=== PATIENT | female | born 1955 | race Caucasian/White ===

== ENCOUNTER 2021-11-22 10:55 | Inpatient (IN) | payer MEDICARE ==
[~2021-11-22] VITALS: Ht 162.6 cm; Wt 95.8 kg
[2021-11-22] MEDS ORDERED: diphenhydrAMINE 25 MG TAB (BENADRYL) PO PRN (13:15)
[2021-11-22] MEDS ORDERED: DOCUSATE SODIUM 100 MG (COLACE) CAP PO PRN (13:15)
[2021-11-22] MEDS ORDERED: ONDANSETRON 4 MG (ZOFRAN) ORAL DISSOLVE TAB PO PRN (13:15)
[2021-11-22] MEDS ORDERED: MELATONIN 3 MG TABLET PO PRN (13:15)
[2021-11-22] MEDS ORDERED: BISACODYL 10 MG SUPP (DULCOLAX) PR PRN (13:15)
[2021-11-22] MEDS ORDERED: CALCIUM CARBONATE 500 MG (TUMS) TAB.CHEW PO PRN (13:15)
[2021-11-22] MEDS ORDERED: FLEET ENEMA ADULT 1 EA BTL PR PRN (13:15)
[2021-11-22] MEDS ORDERED: LOPERAMIDE 2 MG (IMODIUM) TABLET PO PRN (13:15)
[2021-11-22] MEDS ORDERED: guaiFENesin/CODEINE (ROBITUSSIN AC) 10ML UDC PO PRN (13:15)
[2021-11-22] MEDS ORDERED: ACETAMINOPHEN 325 MG TABLET PO PRN (13:15)
[2021-11-22] MEDS ORDERED: ALPRAZolam 0.25 MG (XANAX) TAB PO PRN (13:15)
[2021-11-23] MEDS ORDERED: LEVO100T7 PO (16:02)
[2021-11-23] MEDS ORDERED: GABA300C PO (16:02)
[2021-11-23] MEDS ORDERED: GLIM2TAB4 PO (16:02)
[2021-11-23] MEDS ORDERED: NALO4SPR3 NS (16:02)
[2021-11-23] MEDS ORDERED: CARV12.53 PO (16:02)
[2021-11-23] MEDS ORDERED: BUPR150T9 PO (16:02)
[2021-11-23] MEDS ORDERED: DICY10CA12 PO (16:02)
[2021-11-23] MEDS ORDERED: MICO45CR50 VG (16:02)
[2021-11-23] MEDS ORDERED: ONDA4TAB11 PO (16:02)
[2021-11-23] MEDS ORDERED: METO5TAB2 PO (16:02)
[2021-11-23] MEDS ORDERED: FLUO40CA PO (16:02)
[2021-11-23] MEDS ORDERED: HYDR-3817 PO (16:02)
[2021-11-23] MEDS ORDERED: FLUO20CA48 PO (16:02)
[2021-11-23] MEDS ORDERED: INSN1U SQ (16:02)
[2021-11-23] MEDS ORDERED: ACET-11 PO (16:02)
[2021-11-23 17:52] VITALS: BP 133/79
--- NOTE | 2021-11-23 18:08 | PM&R Post Admission Assessment ---
PM&R Date of Visit: Nov 23, 2021 Time of Visit: 18:15 History of Present Illness Chief complaint: Debility following T12 compression fracture and T12-L4 lumbar spine surgery on 11/17/2021 History of present illness: This is a 66-year-old female who presents from [facility] in need of aggressive rehab due to extensive lumbar spine surgery performed in an uncomplicated fashion by Dr. Ash. The surgery was on 11/17/21. She previously lived independently and her daughter is involved in her care. She had presented to the ER at [facility] with generalized weakness and unable to walk and multiple falls that it occurred recently resulting in a T12 compression fracture that ultimately caused severe compression on the spinal cord requiring the extensive surgery due to high risk for quadriplegia. Patient had a BM 2 day s ago. She is very depressed so will evaluate the need for behavioral health consult. Past Zmyyhli-Yceuyp-Kqamuc Hx Past Med/Social Hx: Reviewed Nursing Past Med/Soc Hx, Reviewed and Corrections made Patient Social History Marrital Status: single Employed/Student: retired Alcohol Use: Denies Use Smoking Status: Never a Smoker Past Medical History Surgeries: Orthopedic Cardiac: High Cholesterol, Hypertension Musculoskeletal: Osteoporosis, Chronic Back Pain Endocrine: Diabetes, Non-Insulin dep Psychosocial: Sleep Difficulties, Anxiety, Depression PM&R Allergy/Meds/Data Review Allergies Coded Allergies: No Known Drug Allergies (Unverified , 11/22/21) Home Medications Scheduled Bupropion HCl (Wellbutrin Sr), 150 MG PO BID, (Reported) Carvedilol (Carvedilol), 12.5 MG PO BID WITH MEALS, (Reported) Fluoxetine HCl (Fluoxetine HCl), 20 MG PO DAILY, (Reported) Fluoxetine HCl (Fluoxetine HCl), 40 MG PO DAILY, (Reported) Gabapentin (Neurontin), 300 MG PO TID, (Reported) Glimepiride (Glimepiride), 2 MG PO DAILY W/BREAKFAST, (Reported) Insulin NPH Human Isophane (Novolin N), 11 UNIT SQ HS, (Reported) Levothyroxine Sodium (Levothyroxine Sodium), 100 MCG PO DAILY, (Reported) Miconazole Nitrate (Miconazole Nitrate), 1 APPLIC VG HS, (Reported) Naloxone HCl (Naloxone HCl), 4 MG NS UD, (Reported) Scheduled PRN Acetaminophen with Codeine (Acetaminophen-Cod #3 Tablet), 1 EACH PO Q6H PRN for PAIN-MODERATE (5-7), (Reported) Dicyclomine HCl (Dicyclomine HCl), 10 MG PO TID PRN for ABDOMINAL PAIN, (Reported) Hydrocodone/Acetaminophen (Hydrocodone-Acetamin 7.5-325), 1 EACH PO Q4H PRN for PAIN-MODERATE (5-7), (Reported) Metoclopramide HCl (Metoclopramide HCl), 5 MG PO BID PRN for NAUSEA/VOMITING-3RD LINE, (Reported) Ondansetron (Ondansetron Odt), 4 MG PO Q6 -8H PRN for NAUSEA/VOMITING-1ST LINE, (Reported) Current Medications Current Medications Reviewed Review of Systems Constitutional: see HPI, malaise, weakness EENTM: no symptoms reported Respiratory: no symptoms reported Cardiovascular: no symptoms reported Gastrointestinal: no symptoms reported Genitourinary: no symptoms reported Musculoskeletal: back pain Skin: no symptoms reported Psychiatric/Neurological: Anxiety, Depressed, Emotional Problems All Other Systems Reviewed Negative Unless Noted: Yes Physical Exam Physical Exam Vital Signs Vital Signs - First Documented 11/23/21 17:52 Temp 36.6 Pulse 80 Resp 18 B/P (MAP) 133/79 (97) Pulse Ox 93 O2 Delivery Room Air Capillary Refill : Height, Weight, BMI Height: '" Weight: lbs. oz. kg; BMI Method: General Appearance: No Apparent Distress, WD/WN, Chronically ill Eyes: Bilateral Eye Normal Inspection, Bilateral Eye PERRL HEENT: PERRL/EOMI, Normal ENT Inspection, Pharynx Normal Neck: Full Range of Motion, Normal Inspection, Non Tender, Supple, Carotid Bruit Respiratory: Chest Non Tender, Lungs Clear, Normal Breath Sounds, No Accessory Muscle Use, No Respiratory Distress Cardiovascular: Regular Rate, Rhythm, No Edema, No Gallop, No JVD, No Murmur, Normal Peripheral Pulses Gastrointestinal: Normal Bowel Sounds, No Organomegaly, No Pulsatile Mass, Non Tender, Soft Back: CVA Tenderness (L), CVA Tenderness (R), Decreased Range of Motion, Muscle Spasm, Vertebral Tenderness Extremity: Normal Capillary Refill, Normal Inspection, Normal Range of Motion (Except lower extremities), Non Tender, No Calf Tenderness, No Pedal Edema Neurologic/Psychiatric: Alert, Oriented x3, sign hanger supervisor II-XII Norm as Tested, Depres sed Affect, Motor Weakness (Lower extremities severe weakness) Skin: Normal Color, Warm/Dry Lymphatic: No Adenopathy PM&R Medical Assessment & Plan REHAB/MEDICAL ASSESSMENT AND PLAN: REHAB IMPAIRMENT GROUP: Lumbar stenosis ETIOLOGIC DIAGNOSIS: Lumbar stenosis The comorbidities that impact the patients function and/or functional outcome by: Severe depression, severe weakness of lower extremities, lives alone REHAB PLAN: The patient is being admitted to our comprehensive inpatient rehabilitation facility and can tolerate the intensity of service consisting of at least: 180 minutes of therapy a day, 5 out of 7 days a week Rehab treatment will consist of: PT and OT will focus on regaining function with use of assistive devices in order to regain ambulatory skills while controlling pain and increasing ADL independence The patient/family has a good understanding of our discharge process and will benefit from an interdisciplinary inpatient rehabilitation program. The patient has potential to make improvement and is in need of at least two of the following multidisciplinary therapies including but not limited to physical, occupational, speech, and prosthetics and orthotics. Additionally the patient will need services from respiratory, nutritional services, wound care, psycholo gy, etc. (Customize this to each patient). Given the patients complex condition and risk of further medical complications, rehabilitation services cannot be safely or effectively provided at a lower level of care such as a residential facility. BARRIERS TO DISCHARGE: Lives alone ESTIMATED LOS: 14 days DISPOSITION: Home RELEVANT CHANGES SINCE PREADMISSION SCREENING: I have compared the patients medical and functional status at the time of the preadmission screening and there are: no changes PROGNOSIS: Good REHABILITATION GOALS: 1. PT and OT will focus on regaining function with use of assistive devices in order to regain ambulatory skills while controlling pain and increasing ADL independence All the above goals were reviewed with the patient and he/she is in agreement. By signing this document, I acknowledge that I have personally performed a full physical examination on this patient within 24 hours of admission to this inpatient rehabilitation facility and have determined the patient to be able to tolerate the above course of treatment at an intensive level for a reasonable period of time. I will be completing a detailed individualized Plan of Care for this patient by day #4 of the patients stay based upon the Preadmission Screen, the Post-Admission Evaluation, and the therapy evaluations. Admission Dx/Comorbidities: (1) S/P spinal fusion ICD Codes: Z98.1 - Arthrodesis status Assessment/Plan Assessment and Plan Assess & Plan/Chief Complaint Assessment: Severe debility following T12 laminectomy with bilateral decompression with T10- T11, T11-T12, T12-L1, L1-L2 posterior lateral fusion requiring [employer] pedicle screws and local bone graft by Dr. Ash on 11/17/2021 at [facility] Severe debility History of depression and 96-hour hold due to suicidal ideation in the past 3 years ago Diabetes Anxiety Depression Hypertension Hypothyroidism MRSA infection Plan: Pain control Supportive [facility] meds Fall risk Bowel regimen ANA GARCIA DO Nov 23, 2021 18:08
[2021-11-23] MEDS ORDERED: NALOXONE HCL 4 MG NS SCH (18:15)
[2021-11-23] MEDS ORDERED: METOCLOPRAMIDE 5 MG (REGLAN) TAB PO PRN (18:15)
[2021-11-23] MEDS ORDERED: DICYCLOMINE 10 MG (BENTYL) CAP PO PRN (18:15)
[2021-11-23 19:27] VITALS: BP 101/66
[2021-11-23] MEDS: buPROPion SR 150 MG (WELLBUTRIN SR) TAB PO SCH (20:15)
[2021-11-23] MEDS: GABAPENTIN 300 MG (NEURONTIN) CAP PO SCH (20:15)
[2021-11-23] MEDS: APAP 300 MG/CODEINE 30 MG (TYLENOL #3) TAB PO PRN (20:16)
[2021-11-23] MEDS: inSUlin NPH (NovoLIN N) 1 UNIT/0.01 ML (CHARGE PER UNIT) SQ SCH (20:17)
[2021-11-23] MEDS: DOCUSATE SODIUM 100 MG (COLACE) CAP PO SCH ×3 (20:28→20:31)
[2021-11-23] MEDS: polyethylene glycoL POWDER 17 GM (MIRALAX) PACK PO SCH ×3 (20:28→20:31)
[2021-11-23] MEDS: SENNA W/DOCUSATE (SENOKOT S) TABLET PO SCH ×3 (20:28→20:32)
[2021-11-23] MEDS: CLOTRIMAZOLE 1% VAG CR (GYNE LOTRIMIN) 45 GM PV SCH (20:29)
[2021-11-23] MEDS ORDERED: MICONAZOLE NITRATE VG SCH (21:00)
[2021-11-23] MEDS: inSUlin ASPART (NovoLOG) 1 UNIT/0.01 ML (CHARGE PER UNIT) SC SCH (21:10)
[2021-11-24 06:00] LABS: BASOPHILS # (AUTO) 0.1 10^3/uL (0.0-0.1); BASOPHILS % (AUTO) 1 % (0-10); EOSINOPHILS # (AUTO) 0.4 10^3/uL (0.0-0.3); EOSINOPHILS % (AUTO) 4 % (0-10); HEMATOCRIT 35 % (35-52); HEMOGLOBIN 11.1 g/dL (11.5-16.0); LYMPHOCYTES # (AUTO) 1.6 10^3/uL (1.0-4.0); LYMPHOCYTES % (AUTO) 15 % (12-44); MEAN CORPUSCULAR HEMOGLOBIN 28 pg (25-34); MEAN CORPUSCULAR HGB CONC 31 g/dL (32-36); MEAN CORPUSCULAR VOLUME 90 fL (80-99); MONOCYTES # (AUTO) 1.5 10^3/uL (0.0-1.0); MONOCYTES % (AUTO) 13 % (0-12); NEUTROPHILS # (AUTO) 7.3 10^3/uL (1.8-7.8); NEUTROPHILS % (AUTO) 67 % (42-75); PLATELET COUNT 181 10^3/uL (130-400); WHITE BLOOD COUNT 10.8 10^3/uL (4.3-11.0)
[2021-11-24 06:08] LABS: ALBUMIN 2.8 GM/DL (3.2-4.5); CHLORIDE 105 MMOL/L (98-107); SODIUM 140 MMOL/L (135-145)
[2021-11-24 06:10] LABS: CALCIUM 8.7 MG/DL (8.5-10.1)
[2021-11-24 06:11] LABS: GLUCOSE 158 MG/DL (70-105); TOTAL PROTEIN 5.6 GM/DL (6.4-8.2)
[2021-11-24 06:12] LABS: CARBON DIOXIDE 25 MMOL/L (21-32)
[2021-11-24 06:13] LABS: BILIRUBIN,TOTAL 0.5 MG/DL (0.1-1.0)
[2021-11-24 06:14] LABS: ALKALINE PHOSPHATASE 108 U/L (40-136); CREATININE SERUM 0.93 MG/DL (0.60-1.30); GFR ESTIMATED 68
[2021-11-24 06:16] LABS: BUN/CREATININE RATIO 22
[2021-11-24 06:17] LABS: ALANINE AMINOTRANSFERASE < 6 U/L (0-55)
[2021-11-24] MEDS: inSUlin ASPART (NovoLOG) 1 UNIT/0.01 ML (CHARGE PER UNIT) SC SCH ×4 (06:39→21:22)
[2021-11-24] MEDS: LEVOTHYROXINE 100 MCG (LEVOTHROID) TAB PO SCH (06:39)
[2021-11-24] MEDS: APAP 300 MG/CODEINE 30 MG (TYLENOL #3) TAB PO PRN ×3 (06:40→18:34)
[2021-11-24 07:30] VITALS: BP 124/60
[2021-11-24] MEDS: GABAPENTIN 300 MG (NEURONTIN) CAP PO SCH ×3 (08:03→21:22)
[2021-11-24] MEDS: SENNA W/DOCUSATE (SENOKOT S) TABLET PO SCH ×2 (08:03→21:27)
[2021-11-24] MEDS: buPROPion SR 150 MG (WELLBUTRIN SR) TAB PO SCH ×2 (08:03→21:23)
[2021-11-24] MEDS: FLUoxetine HCL 20 MG (PROzac) CAP PO SCH (08:04)
[2021-11-24] MEDS: DOCUSATE SODIUM 100 MG (COLACE) CAP PO SCH ×2 (08:04→21:22)
[2021-11-24] MEDS: GLIMEPIRIDE 2 MG (AMARYL) TAB PO SCH (08:09)
[2021-11-24] MEDS: polyethylene glycoL POWDER 17 GM (MIRALAX) PACK PO SCH ×2 (08:42→19:58)
--- NOTE | 2021-11-24 08:57 | Physical Therapy Evaluation ---
PT Evaluation-General Medical Diagnosis Admission Date Nov 23, 2021 at 17:40 Medical Diagnosis: T12 compression fracture and T12-L4 lumbar spine surgery Onset Date: Nov 17, 2021 Therapy Diagnosis Therapy Diagnosis: impaired mobility, strength, endurance Precautions Precautions/Isolations: Fall Prevention, Standard Precautions Referral Physician: Beba Santacruz DO Reason for Referral: Evaluation/Treatment Medical History Additional Medical History Past Medical History Surgeries: Orthopedic Cardiac: High Cholesterol, Hypertension Musculoskeletal: Osteoporosis, Chronic Back Pain Endocrine: Diabetes, Non-Insulin dep Psychosocial: Sleep Difficulties, Anxiety, Depression Reviewed History: Yes Social History Home: Single Level Current Living Status: Alone Entry Into Home: Stairs Without Railing PT Steps Into Home: 1 (two single steps) Prior Prior Level of Function SCALE: Activities may be completed with or without assistive devices. 9-Wgctykbrim-equmqxt completes the activity by him/herself with no assistance from a helper. 5-Set-up or Clean-up Assistance-helper sets up or cleans up; patient completes activity. [place] assists only prior to or following the activity. 4-Supervision or Touching Assistance-helper provides verbal cues and/or touching/steadying and/or contact guard assistance as patient completes activity. Assistance may be provided throughout the activity or intermittently. 3-Partial/Moderate Assistance-helper does LESS THAN HALF the effort. [place] lifts, holds or supports trunk or limbs, but provides less than half the effort. 2-Substantial/Maximal Assistance-helper does MORE THAN HALF the effort. [place] lifts or holds trunk or limbs and provides more than half the effort. 0-Rqsoxkjtp-uccnlm does ALL the effort. Patient does none of the effort to complete the activity. Or, the assistance of 2 or more helpers is required for the patient to complete the activity. If activity was not attempted, code reason: 7-Patient Refused. 9-Not Applicable-not attempted and the patient did not perform the activity before the current illness, exacerbation or injury. 10-Not Attempted due to Environmental Limitations-(lack of equipment, weather restraints, etc.). 88-Not Attempted due to Medical Conditions or Safety Concerns. Bed Mobility: 6 Transfers (B,C,W/C): 6 Gait: 6 Indoor Mobility (Ambulation): Independent quad cane PT Evaluation-Current Subjective Patient in bed pre tx, agrees to PT, has 5/10 pain in back and abdomen. Will be co-treating with OT for part of tx due to poor patient mobility, strength, endurance, severe debility, coordinate UE and LE during activity, safety and reduce risk of falls. Pt/Family Goals to be independent at home Objective Patient Orientation: Person, Place, Situation TLSO, to be put on while laying in bed ROM/Strength ROM Lower Extremities WNL Strength Lower Extremities grossly 3+/5 BLE Sensory Vision: Wears Glasses Hearing: Functional Sensation Right Lower Extremit: Impaired Sensation Left Lower Extremity: Impaired Sensation Lower Extremities Patient seems to have intact light touch sensation but states she has some numbness in both legs from neuropathy Transfers Roll Left & Right (QC): 3 Sit to Lying (QC): 3 Lying to Sitting/Side of Bed(Q: 3 Sit to Stand (QC): 2 Chair/Kar-ru-Iyfuz Xfer(QC): 3 Toilet Transfer (QC): 3 Car Transfer (QC): 2 Patient performs rolling with min assist, supine <-> sit mod assist, sit <-> stand max assist, transfers min assist, car transfer max assist. Patient needs cues for hand placement and positioning during transfers, feet tend to slide forward with sit to stand. Gait Does the Patient Walk?: Yes Mode of Locomotion: Walk Anticipated Mode of Locomotion: Walk Walk 10 feet (QC): 88 Walk 50 ft with 2 Turns(QC): 88 Walk 150 ft (QC): 88 Walking 10ft/uneven surface-QC: 88 Distance: 5' Gait Assistive Device: FWW Comments/Gait Description Patient can ambulate 5' with a rolling walker with min assist, WC follow, patient has to bear a lot of weight through her arms Wheelchair Training Does the Pt Use a Wheelchair?: Yes Distance: 100'x2 Wheel 50 ft with 2 turns (QC): 3 Wheel 150 ft (QC): 88 Type of Wheelchair: Manual Stairs 1 Step (curb) (QC): 88 4 Steps (QC): 88 12 Steps (QC): 88 Balance Sitting Static: Normal Sitting Dynamic: Normal Standing Static: Poor Standing Dynamic: Poor Picking up an Object (QC): 88 Treatment Patient was also toileted on commode (max assist to stand and min assist for the transfer), PT performed bed mobility and transfers, rolling and positioning during bed bathing and dressing, ambulation, WC mobility, OT performed dressing, bathing, UE positioning and safety during activity. Assessment/Needs Patient in recliner post tx with nurse call, to continue with OT for a bit. Patient has impaired mobility, strength, endurance. Her legs are very weak and needs a lot of assist to stand. Rehab Potential: Fair PT Short Term Goals Short Term Goals Time Frame: Dec 01, 2021 Roll Left & Right: 4 Sit to lyin (Nell) Lying to sitting on side of be: 3 (Nell) Sit to stand: 3 (modA) Chair/uht-jp-wkuhq transfer: 4 (CGA) Walk 10 feet: 4 (CGA) PT Custodial Goals Employment Programs Analyst Goals PT Employment Programs Analyst Goals Time Frame: Dec 15, 2021 Roll Left & Right (QC): 6 Sit to Lying (QC): 4 (SBA) Lying-Sitting on Side/Bed(QC): 4 (SBA) Sit to Stand (QC): 3 (Nell) Chair/Umz-mb-Vcazz Xfer(QC): 4 (SBA) Toilet Transfer (QC): 4 (SBA) Car Transfer (QC): 3 (Nell) Does the Patient Walk: Yes Walk 10 feet (QC): 4 (SBA) Walk 50ft with 2 Turns (QC): 4 (SBA) Walk 150 ft (QC): 88 Walking 10ft on Uneven Surface: 4 (CGA) 1 Step (curb) (QC): 88 4 Steps (QC): 88 12 Steps (QC): 88 Picking up an Object (QC): 4 Wheel 50 feet with 2 turns (QC: 6 Wheel 150 feet: 6 PT Plan Problem List Problem List: Activity Tolerance, Functional Strength, Safety, Balance, Gait, Transfer, Bed Mobility, ROM Treatment/Plan Treatment Plan: Continue Plan of Care Treatment Plan: Bed Mobility, Education, Functional Activity Yennifer, Functional Strength, Group Therapy, Gait, Safety, Therapeutic Exercise, Transfers Treatment Duration: Dec 15, 2021 Frequency: At least 5 of 7 days/Wk (IRF) Estimated Hrs Per Day: 1.5 hours per day Patient and/or Family Agrees t: Yes Safety Risks/Education Patient Education: Gait Training, Transfer Techniques, Reviewed Precautions, Correct Positioning, Reviewed Don/Doff Brace, Safety Issues Teaching Recipient: Patient Teaching Methods: Demonstration, Discussion Response to Teaching: Reinforcement Needed Discharge Recommendations Plan Patient will perform bed mobility and transfer training, balance and endurance training, functional strengthening, stair training, gait training, and education, to improve functional mobility and independence at home. Therapy Discharge Recommendati: Scheduled Assistance, Home & Family, Post Acute PT Time/GCodes Time In: 799 Time Out: 899 Total Billed Treatment Time: 60 Total Billed Treatment 1 visit EVM 10' FA 50' PT eval from [id number], co-treat with OT from [id number] NERISSA BENITEZ PT Nov 24, 2021 08:57
[2021-11-24] MEDS ORDERED: FLUoxetine HCL 20 MG (PROzac) CAP PO SCH (09:00)
[2021-11-24] MEDS ORDERED: NON-FORMULARY MEDICATION 1 EA EA (Fluoxetine HCl 40 MG) PO SCH (09:00)
--- NOTE | 2021-11-24 09:15 | Occupational Therapy Eval ---
OT Evaluation-General/PLF Medical Diagnosis Admission Date Nov 23, 2021 at 17:40 Medical Diagnosis: T12 compression fracture and T12-L4 lumbar spine surgery Onset Date: Nov 17, 2021 Therapy Diagnosis Therapy Diagnosis: decreased ADL status and weakness Precautions Precautions/Isolations: Fall Prevention, Standard Precautions Comments wear TLSO brace in sitting and standing, don/doff TLSO brace in supine, back precautions (no BLT), no lifting more than 2-3lb per doctor's orders Weight Bear Status Weight Bearing Restriction: Weight Bearing/Tolerated Referral Physician: Beba Santacruz DO Referral Reason: Evaluation/Treatment Medical History Additional Medical History anxiety, depression, DM, HTN, hypothermia, MRSA Current History Fall in September 2021 causing T12 compression fx. ED c/o weakness in legs and n/v on 11/17/2021. S/p thoracic lumbar fusion, posterior T10-12. Social History Home: Apartment (Lives on first floor) Current Living Status: Alone Entry Into Home: Stairs Without Railing Steps Into Home: 1 (two single steps) ADL-Prior Level of Function SCALE: Activities may be completed with or without assistive devices. 6-Qbojktljea-sfehnlg completes the activity by him/herself with no assistance from a helper. 5-Set-up or Clean-up Assistance-helper sets up or cleans up; patient completes activity. [place] assists only prior to or following the activity. 4-Supervision or Touching Assistance-helper provides verbal cues and/or touching/steadying and/or contact guard assistance as patient completes activity. Assistance may be provided throughout the activity or intermittently. 3-Partial/Moderate Assistance-helper does LESS THAN HALF the effort. [place] lifts, holds or supports trunk or limbs, but provides less than half the effort. 2-Substantial/Maximal Assistance-helper does MORE THAN HALF the effort. [place] lifts or holds trunk or limbs and provides more than half the effort. 8-Jsedrpwfm-yangnm does ALL the effort. Patient does none of the effort to complete the activity. Or, the assistance of 2 or more helpers is required for the patient to complete the activity. If activity was not attempted, code reason: 7-Patient Refused. 9-Not Applicable-not attempted and the patient did not perform the activity before the current illness, exacerbation or injury. 10-Not Attempted due to Environmental Limitations-(lack of equipment, weather restraints, etc.). 88-Not Attempted due to Medical Conditions or Safety Concerns. ADL PLOF Comments Pt states PLOF as IND with ADLs and IADLs. She has a tub/shower and raised handles bars for her normal-height toilet. She does not use an AD within her home but uses a SPC when outside the home. Pt has a daughter who lives nearby (she is currently and unsure how much physical assistance daughter would be able to provide). She has 7 grandchildren, ranging 2-19 y.o, pt indicates the oldest 2 may be able to provide some assistance. Her daughter and grandchildren do not work. Self Care: Independent Functional Cognition: Independent DME/Equipment: Tub/Shower DME/Equipment Comments Pt has raised handles for normal-height toilet seat. OT Current Status Subjective Pt supine in bed prior to OT eval/tx. Pt agreeable to OT eval/tx. Mental Status/Objective Patient Orientation: Person, Place, Situation, Normal For Age Current Glasses/Contacts: Yes Hand Dominance: Right Upper Extremity ROM R UE is WFL, approximately 130 degrees AROM laying down and 120 in seated position. L UE decreased ROM d/t injury 3yrs ago. Approximately 50 degrees AROM laying down and 20 degrees in seated position. Upper Extremity Coordination WFL Upper Extremity Sensation Pt denies any UE numbness or tingling. Upper Extremity Strength Grossly 3/5 RUE Grossly 2/5 LUE ADL-Treatment Eating (QC): 6 Oral Hygiene (QC): 5 (bedside setup) Shower/Bathe Self (QC): 2 (Pt able to wash UE and geraldine area supine in bed, but required assistance to wash buttocks and LE at bed level) Upper Body Dressing (QC): 2 (Max A required to log roll and don shirt and brace in supine) Lower Body Dressing (QC): 2 (Max a required to thread legs through pants and log roll to hike pants over hips in supine. Pt able to hike pants from knee to upper thigh.) On/Off Footwear (QC): 1 Toileting Hygiene (QC): 1 (Total A. 2 person required to don/doff clothes and maintain balance. Pt able to clean geraldine area.) Other Treatments Pt supine in bed prior to eval/tx. Pt answered questions about PLOF and participated in an UE screen. PT/OT cotreat due to skill of 2 clinicians required which a workplace rehabilitation officer could not perform d/t complex medical needs of pt, decreased strength, activity tolerance, mobility/transfers. OT focused on ADLs, UE placement, cues for safety and sequencing, and PT focused on LE placement, gross overall movement, transfers, and mobility. Pt performed bathing and dressing supine in bed d/t doctor's orders that pt must wear TLSO brace when sitting or standing. Education attempted on figure 4 method of crossing ankle over opposite knee, pt attempted but unable to perform movement, increased pain. Pt transferred supine to EOB, assist with trunk. SPT from EOB to w/c. Pt required Min A for w/c mobility to the therapy gym. Pt performed mobility in gym with FWW, assist x2 for sit to stand, then 1 person assist once up with w/c follow (5' min A). Pt required min v/c's for w/c mobility returning to room. Pt required two person A to [place] [facility] she completed toileting. Pt used SPT to return to recliner and participate in oral hygiene and grooming tasks, bedside setup. Post tx, pt left in recliner with TLSO brace on, call light in reach, and all needs met. Min A rolling, mod A supine to/from sit, max A sit to/stand (assist x2 at times), min A transfers. Cues required for UE placement and positioning with transfers. Education OT Patient Education: Correct positioning, Energy conservation, Exercise program, Instructions don/doff splint/brace, Progress toward Goal/Update tx plan, Purpose of tx/functional activities, Reviewed precautions, Rehab process, Safety issues, Transfer techniques, W/C management Teaching Recipient: Patient Teaching Methods: Discussion Response to Teaching: Verbalize Understanding OT Short Term Goals Short Term Goals Time Frame: Dec 08, 2021 Toileting hygiene: 3 Shower/bathe self: 3 Upper body dressin Lower body dressin Putting on/taking off footwear: 3 OT Technicians [employer] Trades Workers Goals [employer]icians [employer] Trades Workers Goals Time Frame: Dec 22, 2021 Eating (QC): 6 Oral Hygiene (QC): 6 Toileting Hygiene (QC): 4 Shower/Bathe Self (QC): 5 (bed level sponge bath) Upper Body Dressing (QC): 5 (bed level) Lower Body Dressing (QC): 4 On/Off Footwear (QC): 4 Additional Goals: 1-Demonstrate ADL Tasks, 2-Verbalize Understanding, 3- ImproveStrength/Yennifer 1=Demonstrate adherence to instructed precautions during ADL tasks. 2=Patient will verbalize/demonstrate understanding of assistive devices/modifications for ADL. 3=Patient will improve strength/tolerance for activity to enable patient to perform ADL's. OT Education/Plan Problem List/Assessment Assessment: Decreased Activ Tolerance, Decreased UE Strength, Dependent Transfers, Impaired Bed Mobility, Impaired Funct Balance, Impaired I ADL's, Impaired Self-Care Skills, Restricted Funct UE ROM Discharge Recommendations Plan/Recommendations: Continue POC Equpiment Recommendations-D/C: Extended Bath Bench, Hip Kit Comment D/c recommendations dependent on pt progress. Treatment Plan/Plan of Care Treatment,Training & Education: Yes Patient would benefit from OT for education, treatment and training to promote independence in ADL's, mobility, safety and/or upper extremity function for ADL's. Plan of Care: ADL Retraining, Functional Mobility, Group Exercise/Act as Ind, UE Funct Exercise/Act Treatment Duration: Dec 22, 2021 Frequency: At least 5 of 7 days/Wk (IRF) Estimated Hrs Per Day: 1.5 hours per day Rehab Potential: Fair Time/GCodes Start Time: 07:50 Stop Time: 09:15 Total Time Billed (hr/min): 75 Billed Treatment Time OT evaluation [id number], PT eval [id number] (not billed), cotreat [id number], OT tx [id number] 1, EVM (10'), ADL 2 (40'), FA 2 (25') RHYS MENEZES OT Nov 24, 2021 09:15
--- NOTE | 2021-11-24 10:41 | Individualized Plan of Care ---
Individualized Plan of Care Rehab Nursing IPOC Order Admission Date Nov 23, 2021 at 17:40 Current Orders Orders Admission Order(Inpt,Obs,Sdc) (11/22/21 13:09) Vital Signs: Per Unit Policy ( ,16,00 (11/22/21 13:09) Davonte Skelton (11/22/21 13:09) Sequential Compression Device (11/22/21 13:09) Pit Steward-Inpt Rehab Con (11/22/21 13:09) Rehab Nursing Orders-Ipoc (11/22/21 13:09) Physical Therapy Rehab Orders (11/22/21 13:09) Occupational Therapy Rehab Ord (11/22/21 13:09) Speech Therapy Rehab Orders (11/22/21 13:09) Precautions (Aru) (11/22/21 13:09) Weekly Weight WEEK (11/22/21 13:09) Rehab-Intensity Of Therapy (11/22/21 13:09) Initiate Admission Nursing Pro .admission (11/22/21 13:09) Alprazolam Tablet (Xanax Tablet) (11/22/21 13:15) Calcium Carbonate Chew Tablet (Antacid C (11/22/21 13:15) Diphenhydramine Tablet (Benadryl Tablet) (11/22/21 13:15) Docusate Sodium Capsule (Colace Capsule) (11/22/21 21:00) Docusate Sodium Capsule (Colace Capsule) (11/22/21 13:15) Bisacodyl Suppository (Dulcolax Supposit (11/22/21 13:15) Lactulose Oral Solution (Enulose Oral So (11/22/21 13:15) Na Phos/Na Biphos Enema (Fleet Enema Dominik (11/22/21 13:15) Guaifenesin/Codeine Syrup (Robitussin Ac (11/22/21 13:15) Loperamide Tablet (Imodium Tablet) (11/22/21 13:15) Melatonin Tablet (Melatonin Tablet) (11/22/21 13:15) Polyethylene Glycol Powder Pkt (Miralax (11/22/21 21:00) Ondansetron Oral Dissolve Tab (Zofran (11/22/21 13:15) Senna S Tablet (Senokot S Tablet) (11/22/21 21:00) Acetaminophen Tablet/Caplet (Tylenol T (11/22/21 13:15) Code/Resuscitation (11/22/21 13:09) Initiate Admission Nursing Pro .admission (11/22/21 13:09) Vte Contraindication (11/22/21 13:09) Cbc With Automated Diff (11/24/21 06:00) Comprehensive Metabolic Panel (11/24/21 06:00) Admission Arrival Bed Request (11/23/21 17:40) Acetaminophen/Codeine Tablet (Tylenol W/ (11/23/21 18:15) Bupropion Sr 12 Hr Tablet (Wellbutrin Sr (11/23/21 21:00) Carvedilol Tablet (Coreg Tablet) (11/24/21 08:00) Dicyclomine Capsule (Bentyl Capsule) (11/23/21 18:15) Fluoxetine Capsule (Prozac Capsule) (11/24/21 09:00) Gabapentin Capsule/Tablet (Neurontin Cap (11/23/21 21:00) Glimepiride Tablet (Amaryl Tablet) (11/24/21 08:00) Hydrocodone/Apap 7.5/325 Tab (Lortab 7. (11/23/21 18:15) Insulin Nph Human (Per Unit) (Novolin N (11/23/21 21:00) Levothyroxine Tablet (Synthroid Tablet) (11/24/21 06:30) Metoclopramide Tablet (Reglan Tablet) (11/23/21 18:15) Ondansetron Oral Dissolve Tab (Zofran (11/23/21 18:15) (Nf) Fluoxetine Hcl (11/24/21 09:00) (Nf) Miconazole Nitrate (11/23/21 21:00) (Nf) Naloxone Hcl (11/23/21 18:15) Cho 75g/M 1snack (21-2400 Mike) (11/23/21 Dinner) Accucheck Achs ACHS (11/23/21 18:06) Insulin Aspart (Novolog) (Novolog (Charg (11/23/21 21:00) Fluoxetine Capsule (Prozac Capsule) (11/24/21 09:00) Carvedilol Tablet (Coreg Tablet) (11/23/21 18:30) Clotrimazole 1% Vaginal Cream (Gyne-Lotr (11/23/21 21:00) Patient Visit (11/24/21 ) Speech Sound Lang Comp (11/24/21 ) Treat. Speech/Lang/Voice (11/24/21 ) Patient Visit (11/24/21 ) Pt Eval Moderate Complexity (11/24/21 ) Functional Activities, Ea 15 (11/24/21 ) Patient Visit (11/24/21 ) Exercise Therap, Ea 15 Min (11/24/21 ) Baclofen Tablet (Lioresal Tablet) (11/24/21 21:00) Rehab Nursing Orders: Ongoing Assess. of Cognitive Status, Ongoing Assess. of Function Status, Bladder Management, Bladder Scan, Bladder Training, Bowel Management, Bowel Training, Disease Management & Educaiton, DVT Prophylaxis, Fall Prevention, Fluid/Electrolyte/Nutrition Mgmt, Infection Prevention, Medication Management & Education, Management of Risks & Complications, Management of Skin Intergrity, Nutrition Management, Pain Management, Patient/Family Support, Safety Management, Wound Management Intensity of Therapy to be met Patient to be seen: Min.3h per day/5 of 7d PT IPOC Problem List: Activity Tolerance, Functional Strength, Safety, Balance, Gait, Transfer, Bed Mobility, ROM Treatment Plan: Continue Plan of Care Bed Mobility, Education, Functional Activity Yennifer, Functional Strength, Group Therapy, Gait, Safety, Therapeutic Exercise, Transfers Treatment Duration: Dec 15, 2021 Frequency: At least 5 of 7 days/Wk (IRF) Estimated Hrs Per Day: 1.5 hours per day OT IPOC Problems: Decreased Activ Tolerance, Decreased Safety Aware, Decreased UE Strength, Dependent Transfers, Impaired Bed Mobility, Impaired Cognition, Impaired Coordination, Impaired Funct Balance, Impaired Self-Care Skills, Restricted Funct UE ROM OT Treatment, Training and Edu: Yes Plan of Care: ADL Retraining, Cognitive Retraining, Concurrent Therapy, Functional Mobility, Group Exercise/Act as Ind Treatment Duration: Nov 24, 2021 Frequency: 5 times per week Estimated Hrs Per Day: [address] IPOC Speech Therapy Treatment Plan: Continue Plan of Care Treatment Duration: Nov 24, 2021 Frequency: Modified Program (IRF) Estimated Hrs Per Day: Other Pit Steward/Case Mgmt Pit Steward/Case Managemen: Discharge Planning Dietitian/Transport Assistant Dietitian/Transport Assistant to monitor nutritional status and make changes and/or recommendations as needed and work with speech pathology on dietary upgrades as the occur. Physician IPOC Medical Issues being managed closely and that require the 24 hour availability of a physician: Recent complex lumbar spine surgery will require close monitoring of the wound and monitoring the emotional status and BP of labile patient Medical Issues: Bowel/Bladder Function, DVT Prophylaxis, Falls Precautions, Fluid/Electrolyte/Nutrition Balance, Infection Protection, Pain Management, Wound Care Brief Synthesis of Preadmission Screen, Post-Admission Evaluation, and Therapy Evaluations: PT OT will focus on regaining ADL function and ambulation on order to regain enough skills to return home alone Medical Prognosis: Fair Anticipated Length of Stay: 7 days ANA GARCIA DO Nov 24, 2021 10:41
--- NOTE | 2021-11-24 10:41 | PM&R Progress Note ---
Subjective HPI/CC On Admission Date Seen by Provider: Nov 24, 2021 Time Seen by Provider: 12:00 Subjective/Events-last exam 11/24/2021: Pt is doing pretty well Has chronic nausea Dressing over the incision will be changed per Dr. Ash's orders Pain is 4-5 Appears to be very depressed so will monitor that closely Review of Systems Musculoskeletal: back pain Objective Exam Vital Signs Vital Signs Date Time Temp Pulse Resp B/P (MAP) Pulse Ox O2 Delivery O2 Flow Rate FiO2 11/24/21 09:15 93 Room Air 11/24/21 07:30 37.3 84 16 124/60 (81) Capillary Refill : General Appearance: No Apparent Distress, WD/WN, Chronically ill HEENT: PERRL/EOMI, Normal ENT Inspection, Pharynx Normal Neck: Full Range of Motion, Normal Inspection, Non Tender, Supple, Carotid Bruit Respiratory: Chest Non Tender, Lungs Clear, Normal Breath Sounds, No Accessory Muscle Use, No Respiratory Distress Cardiovascular: Regular Rate, Rhythm, No Edema, No Gallop, No JVD, No Murmur, Normal Peripheral Pulses Gastrointestinal: Normal Bowel Sounds, No Organomegaly, No Pulsatile Mass, Non Tender, Soft Back: CVA Tenderness (L), CVA Tenderness (R), Decreased Range of Motion, Muscle Spasm, Vertebral Tenderness Extremity: Normal Capillary Refill, Normal Inspection, Normal Range of Motion (Except lower extremities), Non Tender, No Calf Tenderness, No Pedal Edema Neurologic/Psychiatric: Alert, Oriented x3, marketing operations manager II-XII Norm as Tested, Dep ressed Affect, Motor Weakness (Lower extremities severe weakness) Skin: Normal Color, Warm/Dry Lymphatic: No Adenopathy Results/Procedures Lab Laboratory Tests 11/24/21 05:25 Patient resulted labs reviewed. FIM Transfers Therapy Code Descriptions/Definitions Functional [place] Measure: 0=Not Assessed/NA 4=Minimal Assistance 1=Total Assistance 5=Supervision or Setup 2=Maximal Assistance 6=Modified [place] 3=Moderate Assistance 7=Complete IndependenceSCALE: Activities may be completed with or without assistive devices. 6-Fcjnoxoucy-igmkmvk completes the activity by him/herself with no assistance from a helper. 5-Set-up or Clean-up Assistance-helper sets up or cleans up; patient completes activity. [place] assists only prior to or following the activity. 4-Supervision or Touching Assistance-helper provides verbal cues and/or touching/steadying and/or contact guard assistance as patient completes activity. Assistance may be provided throughout the activity or intermittently. 3-Partial/Moderate Assistance-helper does LESS THAN HALF the effort. [place] lifts, holds or supports trunk or limbs, but provides less than half the effort. 2-Substantial/Maximal Assistance-helper does MORE THAN HALF the effort. [place] lifts or holds trunk or limbs and provides more than half the effort. 8-Ntdmfnfwp-wpacrl does ALL the effort. Patient does none of the effort to complete the activity. Or, the assistance of 2 or more helpers is required for the patient to complete the activity. If activity was not attempted, code reason: 7-Patient Refused. 9-Not Applicable-not attempted and the patient did not perform the activity before the current illness, exacerbation or injury. 10-Not Attempted due to Environmental Limitations-(lack of equipment, weather restraints, etc.). 88-Not Attempted due to Medical Conditions or Safety Concerns. Roll Left to Right (QC): 3 Sit to Lying (QC): 3 Sit to Stand (QC): 2 Chair/Ech-ym-Ysvem Xfer(QC): 3 Car Transfer (QC): 2 Gait Training Does the Patient Walk?: Yes Walk 10 feet (QC): 88 Walk 50 ft with 2 Turns(QC): 88 Walk 150 ft (QC): 88 Walking 10ft/uneven surface-QC: 88 Gait Assistive Device: FWW Wheelchair Training Does the Pt Use a Wheelchair?: Yes Distance: 100'x2 Wheel 50 ft with 2 turns (QC): 3 Wheel 150 ft (QC): 88 Type of Wheelchair: Manual Stair Training 1 Step (curb) (QC): 88 4 Steps (QC): 88 12 Steps (QC): 88 Balance Picking up an Object (QC): 88 ADL-Treatment Eating (QC): 6 Oral Hygiene (QC): 5 (bedside setup) Shower/Bathe Self (QC): 2 (Pt able to wash UE and geraldine area supine in bed, but required assistance to wash buttocks and LE. ) Assessment/Plan Assessment and Plan Assess & Plan/Chief Complaint Assessment: Severe debility following T12 laminectomy with bilateral decompression with T10- T11, T11-T12, T12-L1, L1-L2 posterior lateral fusion requiring Medtronic pedicle screws and local bone graft by Dr. Ash on 11/17/2021 at [facility] Severe debility History of depression and 96-hour hold due to suicidal ideation in the past 3 years ago Diabetes Anxiety Depression Hypertension Hypothyroidism MRSA infection Plan: Pain control Supportive [facility] meds Fall risk Bowel regimen 11/24/21: Monitor closely Pain management Monitor BP (1) S/P spinal fusion ANA GARCIA DO Nov 24, 2021 10:40
--- NOTE | 2021-11-24 10:54 | Physical Therapy Daily Note ---
PT Daily Note-Current Subjective Patient in bed pre tx, agrees to PT, has no complaints of pain at rest. Appearance Patient in bed post tx with nurse call, phone, tray, all needs met. Mental Status Patient Orientation: Person, Place, Situation Transfers SCALE: Activities may be completed with or without assistive devices. 6-Lthigirmpf-iyztmma completes the activity by him/herself with no assistance from a helper. 5-Set-up or Clean-up Assistance-helper sets up or cleans up; patient completes activity. [place] assists only prior to or following the activity. 4-Supervision or Touching Assistance-helper provides verbal cues and/or touch ing/steadying and/or contact guard assistance as patient completes activity. Assistance may be provided throughout the activity or intermittently. 3-Partial/Moderate Assistance-helper does LESS THAN HALF the effort. [place] lifts, holds or supports trunk or limbs, but provides less than half the effort. 2-Substantial/Maximal Assistance-helper does MORE THAN HALF the effort. [place] lifts or holds trunk or limbs and provides more than half the effort. 4-Vgqzvlsva-udqxco does ALL the effort. Patient does none of the effort to complete the activity. Or, the assistance of 2 or more helpers is required for the patient to complete the activity. If activity was not attempted, code reason: 7-Patient Refused. 9-Not Applicable-not attempted and the patient did not perform the activity before the current illness, exacerbation or injury. 10-Not Attempted due to Environmental Limitations-(lack of equipment, weather restraints, etc.). 88-Not Attempted due to Medical Conditions or Safety Concerns. Exercises Supine Ex: Ankle pumps, Quad Set, Glut sets, Heel Slides (AAROM), Short Arc Quads (AAROM), Straight leg raise (AAROM), Hip abd/add (AAROM) Treatments BLE strengthening Assessment Current Status: Fair Progress patient lj well, good participation PT Short Term Goals Short Term Goals Time Frame: Dec 01, 2021 Roll Left & Right: 4 Sit to lyin (Nell) Lying to sitting on side of be: 3 (Nell) Sit to stand: 3 (modA) Chair/fws-rz-qpkzp transfer: 4 (CGA) Walk 10 feet: 4 (CGA) PT Regional Business Manager Goals Half-Way Goals PT Half-Way Goals Time Frame: Dec 15, 2021 Roll Left & Right (QC): 6 Sit to Lying (QC): 4 (SBA) Lying-Sitting on Side/Bed(QC): 4 (SBA) Sit to Stand (QC): 3 (Nell) Chair/Uep-rt-Msial Xfer(QC): 4 (SBA) Toilet Transfer (QC): 4 (SBA) Car Transfer (QC): 3 (Nell) Does the Patient Walk: Yes Walk 10 feet (QC): 4 (SBA) Walk 50ft with 2 Turns (QC): 4 (SBA) Walk 150 ft (QC): 88 Walking 10ft on Uneven Surface: 4 (CGA) 1 Step (curb) (QC): 88 4 Steps (QC): 88 12 Steps (QC): 88 Picking up an Object (QC): 4 Wheel 50 feet with 2 turns (QC: 6 Wheel 150 feet: 6 PT Plan Problem List Problem List: Activity Tolerance, Functional Strength, Safety, Balance, Gait, Transfer, Bed Mobility, ROM Treatment/Plan Treatment Plan: Continue Plan of Care Treatment Plan: Bed Mobility, Education, Functional Activity Yennifer, Functional Strength, Group Therapy, Gait, Safety, Therapeutic Exercise, Transfers Treatment Duration: Dec 15, 2021 Frequency: At least 5 of 7 days/Wk (IRF) Estimated Hrs Per Day: 1.5 hours per day Patient and/or Family Agrees t: Yes Safety Risks/Education Patient Education: Correct Positioning, Safety Issues Teaching Recipient: Patient Teaching Methods: Demonstration, Discussion Response to Teaching: Reinforcement Needed Time/GCodes Time In: 1035 Time Out: 1050 Total Billed Treatment Time: 15 Total Billed Treatment 1 visit EX NERISSA DODSON PT Nov 24, 2021 10:54
--- NOTE | 2021-11-24 12:46 | ST Cognitive Linguistic Eval ---
Speech Evaluation-General Medical Diagnosis T12 compression fracture and T12-L4 lumbar spine surgery Onset Date: Nov 17, 2021 Therapy Diagnosis Therapy Diagnosis: Intact Oropharyngeal Dysphagia Precautions Precautions: Fall Precautions/Isolations: Fall Prevention Referral Referring Physician: Dr. Beba Santacruz Reason for Referral: Evaluation/Treatment Medical History Current History The patient is a 66m year-old female with a past medical history of high cholesterol, HTN, anxiety, depression, and diabetes, who presentes to [facility] following an extensive lumbar spine surgery performed in an uncomplicated fashion by Dr. Ash. Reviewed History: Yes Social History Current Living Status: Alone Speech PLF-Current Status Prior Level of Function The patient denied prior challenges, concerns, or difficulties with her speech, language or cognition. Subjective The patient was lying in her bed, awake and alert upon entrance to her room by the clinician. The patient greeted the clinician appropriately and was agreeable to participation in the cognitive linguistic assessment. Language Eval: Auditory Comprehends Simple Yes/No Ques: Functional Indent/Objects Multiple Lee: Functional Ident/Pics in Multiple Lee: Functional Follows 1-Step Commands: Functional Follows Complex Directions: Functional Follows General Conversations: Functional Language Eval: Verbal Language Completes Spontaneous Greeting: Functional Produces Auto, Serial Info: Functional Imitates Simple Words/Phrases: Functional Word Finding: Functional Requests Basic Needs: Functional States Basic Personal Info: Functional Expresses Complex Ideas: Functional Language Evaluation: Reading Follows Simple Written Direct: Functional Language Evaluation: Writing Writes to Simple Dictation: Functional Cognitive Patient Orientation The patient was independently oriented to self, location, month, day of week, date, and year. Objective Cognitive Domain Attention: WNL Memory: WNL Problem Solving: Functional Executive Functions: WNL Visuospatial Skills: WNL Composite Severity Rating: WNL Clock Drawing Severity Rating: WNL Objective Formal/Standardized Tests [facility] Mental Status ([facility] [place]) Results The patient demonstrated a result of +30/30 correlating to neurocognitive skills within normal limits. Oral Motor/Speech Production The patient does not display dysarthria or apraxia of speech. The patient is 100% intelligible in known and unknown contexts. Impression The patient displayed neurocognitive skills within normal limits. Speech Patient Assess Expression of Ideas/Wants: Expression (4) Understanding Verbal Content: Understands (4) Brief Interview-Mental Status: Yes Repetition of Three Words: Three (3) Temporal Orientation: Year: Correct (3) Temporal Orientation: Month: Accurate within 5 days(2) Temporal Orientation: Day: Correct (1) Recall : Wear to say "Sock": Yes, no cue required (2) Recall : Color: Yes, no cue required (2) Recall : Bed: Yes, no cue required (2) Memory/Recall Ability: Current season, That he or she is in a hsp/hsp unit Speech-Plan Treatment Plan Speech Therapy Treatment Plan: Discontinue ST Treatment Duration: Nov 24, 2021 Frequency: 1 time per week Estimated Hrs Per Day: .5 hour per day Rehab Potential: Fair Pt/Family Agrees to Plan: Yes Safety Risks/Education Teaching Recipient: Patient Teaching Methods: Discussion Response to Teaching: Verbalize Understanding Education Topics Provided: Results of SEA PINEDA Speech Therapy Time In: 13:30 Speech Therapy Time Out: 14:00 Total Billed Time: 30 Billed Treatment Time 1, CHARLES HAYNES [facility] ST Nov 24, 2021 12:46
[2021-11-24 20:53] VITALS: BP 117/63
[2021-11-24] MEDS ORDERED: BACLOFEN 10 MG (LIORESAL) TAB PO PRN (21:00)
[2021-11-24] MEDS: inSUlin NPH (NovoLIN N) 1 UNIT/0.01 ML (CHARGE PER UNIT) SQ SCH (21:22)
[2021-11-24] MEDS: CLOTRIMAZOLE 1% VAG CR (GYNE LOTRIMIN) 45 GM PV SCH (22:13)
[2021-11-25] MEDS: APAP 300 MG/CODEINE 30 MG (TYLENOL #3) TAB PO PRN ×4 (01:06→21:25)
[2021-11-25] MEDS: ONDANSETRON 4 MG (ZOFRAN) ORAL DISSOLVE TAB PO PRN (02:41)
[2021-11-25] MEDS: inSUlin ASPART (NovoLOG) 1 UNIT/0.01 ML (CHARGE PER UNIT) SC SCH ×4 (05:56→21:21)
--- NOTE | 2021-11-25 06:21 | PM&R Progress Note ---
Subjective HPI/CC On Admission Date Seen by Provider: Nov 25, 2021 Time Seen by Provider: 12:00 Subjective/Events-last exam 11/25/21: Patient feels about the same Flat affect noted Reassured BM+ Urinary retention so ordered Urecholine 11/24/2021: Pt is doing pretty well Has chronic nausea Dressing over the incision will be changed per Dr. Ash's orders Pain is 4-5 Appears to be very depressed so will monitor that closely Review of Systems General: Fatigue, Malaise Objective Exam Vital Signs Vital Signs Date Time Temp Pulse Resp B/P (MAP) Pulse Ox O2 Delivery O2 Flow Rate FiO2 11/25/21 19:51 37.1 74 17 108/58 (75) 96 Room Air Capillary Refill : General Appearance: No Apparent Distress, WD/WN, Chronically ill HEENT: PERRL/EOMI, Normal ENT Inspection, Pharynx Normal Neck: Full Range of Motion, Normal Inspection, Non Tender, Supple, Carotid Bruit Respiratory: Chest Non Tender, Lungs Clear, Normal Breath Sounds, No Accessory Muscle Use, No Respiratory Distress Cardiovascular: Regular Rate, Rhythm, No Edema, No Gallop, No JVD, No Murmur, Normal Peripheral Pulses Gastrointestinal: Normal Bowel Sounds, No Organomegaly, No Pulsatile Mass, Non Tender, Soft Back: CVA Tenderness (L), CVA Tenderness (R), Decreased Range of Motion, Muscle Spasm, Vertebral Tenderness Extremity: Normal Capillary Refill, Normal Inspection, Normal Range of Motion (Except lower extremities), Non Tender, No Calf Tenderness, No Pedal Edema Neurologic/Psychiatric: Alert, Oriented x3, photographic process screen maker II-XII Norm as Tested, Depressed Affect, Motor Weakness (Lower extremities severe weakness) Skin: Normal Color, Warm/Dry Lymphatic: No Adenopathy Results/Procedures Lab Patient resulted labs reviewed. FIM Transfers Therapy Code Descriptions/Definitions Functional [place] Measure: 0=Not Assessed/NA 4=Minimal Assistance 1=Total Assistance 5=Supervision or Setup 2=Maximal Assistance 6=Modified [place] 3=Moderate Assistance 7=Complete IndependenceSCALE: Activities may be completed with or without assistive devices. 1-Pyehooelpq-ukkxvdd completes the activity by him/herself with no assistance from a helper. 5-Set-up or Clean-up Assistance-helper sets up or cleans up; patient completes activity. [place] assists only prior to or following the activity. 4-Supervision or Touching Assistance-helper provides verbal cues and/or touching/steadying and/or contact guard assistance as patient completes activity. Assistance may be provided throughout the activity or intermittently. 3-Partial/Moderate Assistance-helper does LESS THAN HALF the effort. [place] lifts, holds or supports trunk or limbs, but provides less than half the effort. 2-Substantial/Maximal Assistance-helper does MORE THAN HALF the effort. [place] lifts or holds trunk or limbs and provides more than half the effort. 7-Vwjmcydjs-iqvzbe does ALL the effort. Patient does none of the effort to complete the activity. Or, the assistance of 2 or more helpers is required for the patient to complete the activity. If activity was not attempted, code reason: 7-Patient Refused. 9-Not Applicable-not attempted and the patient did not perform the activity bef ore the current illness, exacerbation or injury. 10-Not Attempted due to Environmental Limitations-(lack of equipment, weather r estraints, etc.). 88-Not Attempted due to Medical Conditions or Safety Concerns. Roll Left to Right (QC): 3 Sit to Lying (QC): 3 Sit to Stand (QC): 2 Chair/Iqm-kj-Fmyxt Xfer(QC): 3 Car Transfer (QC): 2 Gait Training Does the Patient Walk?: Yes Walk 10 feet (QC): 88 Walk 50 ft with 2 Turns(QC): 88 Walk 150 ft (QC): 88 Walking 10ft/uneven surface-QC: 88 Gait Assistive Device: FWW Wheelchair Training Does the Pt Use a Wheelchair?: Yes Distance: 100'x2 Wheel 50 ft with 2 turns (QC): 3 Wheel 150 ft (QC): 88 Type of Wheelchair: Manual Stair Training 1 Step (curb) (QC): 88 4 Steps (QC): 88 12 Steps (QC): 88 Balance Picking up an Object (QC): 88 ADL-Treatment Eating (QC): 6 Oral Hygiene (QC): 5 (bedside setup) Shower/Bathe Self (QC): 2 (Pt able to wash UE and geraldine area supine in bed, but required assistance to wash buttocks and LE at bed level) Upper Body Dressing (QC): 2 (Max A required to log roll and don shirt and brace in supine) Lower Body Dressing (QC): 2 (Max a required to thread legs through pants and log roll to hike pants over hips in supine. Pt able to hike pants from knee to upper thigh.) On/Off Footwear (QC): 1 Toileting Hygiene (QC): 1 (Total A. 2 person required to don/doff clothes and maintain balance. Pt able to clean geraldine area.) Assessment/Plan Assessment and Plan Assess & Plan/Chief Complaint Assessment: Severe debility following T12 laminectomy with bilateral decompression with T10- T11, T11-T12, T12-L1, L1-L2 posterior lateral fusion requiring Medtronic pedicle screws and local bone graft by Dr. Ash on 11/17/2021 at [facility] Severe debility History of depression and 96-hour hold due to suicidal ideation in the past 3 years ago Diabetes Anxiety Depression Hypertension Hypothyroidism MRSA infection Urinary retention 11/25/21 Plan: Pain control Supportive assisted meds Fall risk Bowel regimen 11/24/21: Monitor closely Pain management Monitor BP 11/25/21: Monitor closely Pain mngt Urecholine (1) S/P spinal fusion ANA GARCIA DO Nov 25, 2021 06:20
[2021-11-25] MEDS: LEVOTHYROXINE 100 MCG (LEVOTHROID) TAB PO SCH (06:52)
[2021-11-25 07:14] VITALS: BP 129/83
[2021-11-25] MEDS: buPROPion SR 150 MG (WELLBUTRIN SR) TAB PO SCH ×2 (08:41→21:21)
[2021-11-25] MEDS: FLUoxetine HCL 20 MG (PROzac) CAP PO SCH (08:41)
[2021-11-25] MEDS: GLIMEPIRIDE 2 MG (AMARYL) TAB PO SCH (08:41)
[2021-11-25] MEDS: GABAPENTIN 300 MG (NEURONTIN) CAP PO SCH ×3 (08:41→21:20)
[2021-11-25] MEDS: DOCUSATE SODIUM 100 MG (COLACE) CAP PO SCH ×2 (08:42→21:32)
[2021-11-25] MEDS: polyethylene glycoL POWDER 17 GM (MIRALAX) PACK PO SCH ×2 (08:42→21:32)
[2021-11-25] MEDS: SENNA W/DOCUSATE (SENOKOT S) TABLET PO SCH ×2 (08:42→21:32)
--- NOTE | 2021-11-25 09:57 | Occupational Ther Daily Note ---
OT Current Status-Daily Note Subjective Pt alert, lying in bed. Pt agrees to therapy. States pain is at 3/10, increases with movement and then subsides after movement. Co-treat with PT ([id number]), skills of 2 clinicians required to decrease fall risk, increase all mobility, strength and activity tolerance. PT focusing on bed mobility, transfers, B LE strengthening and ambulation while OT focusing on ADLs, functional mobility and placement of B UE's during all transfers/ambulation. Mental Status/Objective Patient Orientation: Person, Place, Time, Situation Attachments: Other-See Comments ADL-Treatment Max A for toileting while in bed using bedpan then hygiene. Pt able to cleanse geraldine area and upper body while in supine then assist with all areas during sponge bath. Max A to complete lower body dressing and min A to roll side to side. Mod A to doff/don shirt. Max A to don/doff TLSO. Dependent for footwear. Mod A x2 for supine <--> EOB, with education on log roll. Pt educated on donning/doffing TLSO, will continue to need practice to become proficient. Mod A x2 for sit to stand then Min A using FWW to transfer to w/c. Education on propelling w/c around corners then pt able to complete by self in straightaways. Sitting at sink, pt completed oral care and using shampoo cap to cleanse hair independently. Therapy Code Descriptions/Definitions Functional [place] Measure: 0=Not Assessed/NA 4=Minimal Assistance 1=Total Assistance 5=Supervision or Setup 2=Maximal Assistance 6=Modified [place] 3=Moderate Assistance 7=Complete IndependenceSCALE: Activities may be completed with or without assistive devices. 6-Hgrfynmefi-xcrrcab completes the activity by him/herself with no assistance from a helper. 5-Set-up or Clean-up Assistance-helper sets up or cleans up; patient completes activity. [place] assists only prior to or following the activity. 4-Supervision or Touching Assistance-helper provides verbal cues and/or touc bubba/steadying and/or contact guard assistance as patient completes activity. Assistance may be provided throughout the activity or intermittently. 3-Partial/Moderate Assistance-helper does LESS THAN HALF the effort. [place] lifts, holds or supports trunk or limbs, but provides less than half the effort. 2-Substantial/Maximal Assistance-helper does MORE THAN HALF the effort. [place] lifts or holds trunk or limbs and provides more than half the effort. 7-Dotymgahl-ooauuo does ALL the effort. Patient does none of the effort to complete the activity. Or, the assistance of 2 or more helpers is required for the patient to complete the activity. If activity was not attempted, code reason: 7-Patient Refused. 9-Not Applicable-not attempted and the patient did not perform the activity before the current illness, exacerbation or injury. 10-Not Attempted due to Environmental Limitations-(lack of equipment, weather restraints, etc.). 88-Not Attempted due to Medical Conditions or Safety Concerns. Eating (QC): 6 Oral Hygiene (QC): 6 Bathing Location: L Arm, R Arm, Chest, Abdomen, Perineal Area Shower/Bathe Self (QC): 2 Upper Body Dressing (QC): 3 (mod A) Lower Body Dressing (QC): 2 On/Off Footwear: 1 Toileting Hygiene (QC): 2 Other Treatment Pt ambulated in parallel bars 3x's with one person assist while 2nd person foll owed with w/c. Significant recovery breaks between each ambulation. Pt then stood and alternated taking each hand off of bar to touch shoulder 10x's. Stood again to complete mini squats. See PT notes for progress on transfers and ambulation. After session, pt lying in bed with call light/phone in reach. All needs met in room. Education OT Patient Education: Instructions don/doff splint/brace Teaching Recipient: Patient Teaching Methods: Demonstration, Discussion Response to Teaching: Verbalize Understanding, Return Demonstration, Reinforcement Needed OT Short Term Goals Short Term Goals Time Frame: Dec 08, 2021 Toileting hygiene: 3 Shower/bathe self: 3 Upper body dressin Lower body dressin Putting on/taking off footwear: 3 OT Nursing Home Goals Manager Civil Goals Time Frame: Dec 22, 2021 Eating (QC): 6 Oral Hygiene (QC): 6 Toileting Hygiene (QC): 4 Shower/Bathe Self (QC): 5 (bed level sponge bath) Upper Body Dressing (QC): 5 (bed level) Lower Body Dressing (QC): 4 On/Off Footwear (QC): 4 Additional Goals: 1-Demonstrate ADL Tasks, 2-Verbalize Understanding, 3- ImproveStrength/Yennifer 1=Demonstrate adherence to instructed precautions during ADL tasks. 2=Patient will verbalize/demonstrate understanding of assistive devices/modifications for ADL. 3=Patient will improve strength/tolerance for activity to enable patient to perform ADL's. OT Education/Plan Problem List/Assessment Assessment: Decreased Activ Tolerance, Decreased UE Strength, Dependent Transfers, Impaired Bed Mobility, Impaired Funct Balance, Impaired Self-Care Skills Discharge Recommendations Plan/Recommendations: Continue POC Treatment Plan/Plan of Care Patient would benefit from OT for education, treatment and training to promote independence in ADL's, mobility, safety and/or upper extremity function for ADL's. Plan of Care: ADL Retraining, Cognitive Retraining, Concurrent Therapy, Functional Mobility, Group Exercise/Act as Ind Treatment Duration: Nov 24, 2021 Frequency: 5 times per week Estimated Hrs Per Day: 1 hour per day Rehab Potential: Fair Time/GCodes Start Time: 08:30 Stop Time: 10:00 Total Time Billed (hr/min): 90 Billed Treatment Time 1 visit-ADL 3 (45 min) FA 3 (45 min) co-treat with PT 90 min ANETTE TODD Nov 25, 2021 09:57
--- NOTE | 2021-11-25 11:33 | Physical Therapy Daily Note ---
PT Daily Note-Current Subjective Pt in bed upon arrival and agrees to PT/OT co-treat. Co-treat with PT ([phone]), skills of 2 clinicians required to decrease fall risk, increase all mobility, strength and activity tolerance. PT focusing on bed mobility, transfers, B LE strengthening and ambulation while OT focusing on ADLs, functional mobility and placement of B UE's during all transfers/ambulation. Pain Numeric Pain Scale: 4 Mental Status Patient Orientation: Person, Place, Time, Situation Transfers SCALE: Activities may be completed with or without assistive devices. 7-Pniusftvhz-tooauph completes the activity by him/herself with no assistance from a helper. 5-Set-up or Clean-up Assistance-helper sets up or cleans up; patient completes activity. [place] assists only prior to or following the activity. 4-Supervision or Touching Assistance-helper provides verbal cues and/or touching/steadying and/or contact guard assistance as patient completes activity. Assistance may be provided throughout the activity or intermittently. 3-Partial/Moderate Assistance-helper does LESS THAN HALF the effort. [place] l ifts, holds or supports trunk or limbs, but provides less than half the effort. 2-Substantial/Maximal Assistance-helper does MORE THAN HALF the effort. [place] lifts or holds trunk or limbs and provides more than half the effort. 2-Syumifmdq-depsyf does ALL the effort. Patient does none of the effort to complete the activity. Or, the assistance of 2 or more helpers is required for t he patient to complete the activity. If activity was not attempted, code reason: 7-Patient Refused. 9-Not Applicable-not attempted and the patient did not perform the activity before the current illness, exacerbation or injury. 10-Not Attempted due to Environmental Limitations-(lack of equipment, weather restraints, etc.). 88-Not Attempted due to Medical Conditions or Safety Concerns. Roll Left & Right (QC): 3 Sit to Lying (QC): 2 Lying to Sitting/Side of Bed(Q: 3 Sit to Stand (QC): 3 All trfs require assistance of two clinicians Gait Training Does the Patient Walk?: Yes Distance: 10' x 3 5' x 2 Gait Persons Needed: 2 Gait Assistive Device: FWW scissoring gait is able to correct w/ verbal cues Wheelchair Training Does the Pt Use a Wheelchair?: Yes Wheel 50 ft with 2 turns (QC): 4 Treatments Pt ambulated in parallel bars 3x's with one person assist while 2nd person fol lowed with w/c. Significant recovery breaks between each ambulation. Pt then stood and alternated taking each hand off of bar to touch shoulder 10x's. Stood again to complete mini squats. Pt ambulates w/ scissoring gait on RLE but is able to correct w/ vc's. Pt required mod/maxA to perform sit to stands and pt fatigued quickly. After session, pt lying in bed with call light/phone in reach. All needs met in room. Assessment Current Status: Good Progress Max A for toileting while in bed using bedpan then hygiene. Max A to complete lower body dressing and min A to roll side to side. Mod A to doff/don shirt. Max A to don/doff TLSO. Dependent for footwear. Mod A x2 for supine <--> EOB, with education on log roll. Pt educated on donning/doffing TLSO, will continue to need practice to become proficient. Mod A x2 for sit to stand then Min A using FWW to transfer to w/c. Education on propelling w/c around corners then pt able to complete by self in straightaways. Pt required skilled verbal cues for hand and foot placement during all TFs. PT Short Term Goals Short Term Goals Time Frame: Dec 01, 2021 Roll Left & Right: 4 Sit to lyin (Nell) Lying to sitting on side of be: 3 (Nell) Sit to stand: 3 (modA) Chair/oer-je-znjsm transfer: 4 (CGA) Walk 10 feet: 4 (CGA) PT Nursing Home Goals Tie Tape Machine Operator Goals PT Nursing Home Goals Time Frame: Dec 15, 2021 Roll Left & Right (QC): 6 Sit to Lying (QC): 4 (SBA) Lying-Sitting on Side/Bed(QC): 4 (SBA) Sit to Stand (QC): 3 (Nell) Chair/Qqs-ol-Ybqag Xfer(QC): 4 (SBA) Toilet Transfer (QC): 4 (SBA) Car Transfer (QC): 3 (Nell) Does the Patient Walk: Yes Walk 10 feet (QC): 4 (SBA) Walk 50ft with 2 Turns (QC): 4 (SBA) Walk 150 ft (QC): 88 Walking 10ft on Uneven Surface: 4 (CGA) 1 Step (curb) (QC): 88 4 Steps (QC): 88 12 Steps (QC): 88 Picking up an Object (QC): 4 Wheel 50 feet with 2 turns (QC: 6 Wheel 150 feet: 6 PT Plan Problem List Problem List: Activity Tolerance, Functional Strength, Safety, Balance, Transfer, Bed Mobility Treatment/Plan Treatment Plan: Continue Plan of Care Treatment Plan: Bed Mobility, Education, Functional Activity Yennifer, Functional Strength, Group Therapy, Gait, Safety, Therapeutic Exercise, Transfers Treatment Duration: Dec 15, 2021 Frequency: At least 5 of 7 days/Wk (IRF) Estimated Hrs Per Day: 1.5 hours per day Patient and/or Family Agrees t: Yes Safety Risks/Education Patient Education: Gait Training, Transfer Techniques, Reviewed Precautions, Correct Positioning, Reviewed Don/Doff Brace Teaching Recipient: Patient Teaching Methods: Demonstration, Discussion Response to Teaching: Verbalize Understanding, Return Demonstration Time/GCodes Time In: 830 Time Out: 1000 Total Billed Treatment Time: 90 Total Billed Treatment 1, FA x 4, Ex x 2 WANDER CERRATO PTA Nov 25, 2021 11:33
[2021-11-25] MEDS: BETHANECHOL 25 MG (URECHOLINE) TAB PO SCH ×3 (12:49→21:20)
[2021-11-25 17:04] VITALS: BP 118/66
[2021-11-25 19:51] VITALS: BP 108/58
[2021-11-25] MEDS: inSUlin NPH (NovoLIN N) 1 UNIT/0.01 ML (CHARGE PER UNIT) SQ SCH (21:21)
[2021-11-25] MEDS: CLOTRIMAZOLE 1% VAG CR (GYNE LOTRIMIN) 45 GM PV SCH (21:27)
[2021-11-26] MEDS: inSUlin ASPART (NovoLOG) 1 UNIT/0.01 ML (CHARGE PER UNIT) SC SCH ×4 (06:01→21:57)
--- NOTE | 2021-11-26 06:24 | PM&R Progress Note ---
Subjective HPI/CC On Admission Date Seen by Provider: Nov 26, 2021 Time Seen by Provider: 11:00 Subjective/Events-last exam 11/26/21: Patient feels better Pain controlled Urinary retention noted Pyridium TID prn Urology consult a possibility tomorrow 11/25/21: Patient feels about the same Flat affect noted Reassured BM+ Urinary retention so ordered Urecholine 11/24/2021: Pt is doing pretty well Has chronic nausea Dressing over the incision will be changed per Dr. Ash's orders Pain is 4-5 Appears to be very depressed so will monitor that closely Review of Systems General: Fatigue, Malaise Objective Exam Vital Signs Vital Signs Date Time Temp Pulse Resp B/P (MAP) Pulse Ox O2 Delivery O2 Flow Rate FiO2 11/26/21 09:36 Room Air 11/26/21 07:08 37.0 84 18 114/75 (88) 93 Capillary Refill : General Appearance: No Apparent Distress, WD/WN, Chronically ill HEENT: PERRL/EOMI, Normal ENT Inspection, Pharynx Normal Neck: Full Range of Motion, Normal Inspection, Non Tender, Supple, Carotid Bruit Respiratory: Chest Non Tender, Lungs Clear, Normal Breath Sounds, No Accessory Muscle Use, No Respiratory Distress Cardiovascular: Regular Rate, Rhythm, No Edema, No Gallop, No JVD, No Murmur, Normal Peripheral Pulses Gastrointestinal: Normal Bowel Sounds, No Organomegaly, No Pulsatile Mass, Non Tender, Soft Back: CVA Tenderness (L), CVA Tenderness (R), Decreased Range of Motion, Muscle Spasm, Vertebral Tenderness Extremity: Normal Capillary Refill, Normal Inspection, Normal Range of Motion (Except lower extremities), Non Tender, No Calf Tenderness, No Pedal Edema Neurologic/Psychiatric: Alert, Oriented x3, silver steward II-XII Norm as Tested, Depressed Affect, Motor Weakness (Lower extremities severe weakness) Skin: Normal Color, Warm/Dry Lymphatic: No Adenopathy Results/Procedures Lab Patient resulted labs reviewed. FIM Transfers Therapy Code Descriptions/Definitions Functional [place] Measure: 0=Not Assessed/NA 4=Minimal Assistance 1=Total Assistance 5=Supervision or Setup 2=Maximal Assistance 6=Modified [place] 3=Moderate Assistance 7=Complete IndependenceSCALE: Activities may be completed with or without assistive devices. 5-Yniguzxqdl-rsgmzuq completes the activity by him/herself with no assistance from a helper. 5-Set-up or Clean-up Assistance-helper sets up or cleans up; patient completes activity. [place] assists only prior to or following the activity. 4-Supervision or Touching Assistance-helper provides verbal cues and/or touching/steadying and/or contact guard assistance as patient completes activity. Assistance may be provided throughout the activity or intermittently. 3-Partial/Moderate Assistance-helper does LESS THAN HALF the effort. [place] lifts, holds or supports trunk or limbs, but provides less than half the effort. 2-Substantial/Maximal Assistance-helper does MORE THAN HALF the effort. [place] lifts or holds trunk or limbs and provides more than half the effort. 9-Hnaazzvtd-kyndhb does ALL the effort. Patient does none of the effort to complete the activity. Or, the assistance of 2 or more helpers is required for the patient to complete the activity. If activity was not attempted, code reason: 7-Patient Refused. 9-Not Applicable-not attempted and the patient did not perform the activity before the current illness, exacerbation or injury. 10-Not Attempted due to Environmental Limitations-(lack of equipment, weather restraints, etc.). 88-Not Attempted due to Medical Conditions or Safety Concerns. Roll Left to Right (QC): 3 Sit to Lying (QC): 2 Sit to Stand (QC): 3 Chair/Fib-uc-Rutmf Xfer(QC): 3 Car Transfer (QC): 2 Gait Training Does the Patient Walk?: Yes Distance: 10' x 3 5' x 2 Walk 10 feet (QC): 88 Walk 50 ft with 2 Turns(QC): 88 Walk 150 ft (QC): 88 Walking 10ft/uneven surface-QC: 88 Gait Persons Needed: 2 Gait Assistive Device: FWW Wheelchair Training Does the Pt Use a Wheelchair?: Yes Distance: 100'x2 Wheel 50 ft with 2 turns (QC): 4 Wheel 150 ft (QC): 88 Type of Wheelchair: Manual Stair Training 1 Step (curb) (QC): 88 4 Steps (QC): 88 12 Steps (QC): 88 Balance Picking up an Object (QC): 88 ADL-Treatment Eating (QC): 6 Oral Hygiene (QC): 6 Bathing Location: L Arm, R Arm, Chest, Abdomen, Perineal Area Shower/Bathe Self (QC): 2 Upper Body Dressing (QC): 3 (mod A) Lower Body Dressing (QC): 2 On/Off Footwear (QC): 1 Toileting Hygiene (QC): 2 Assessment/Plan Assessment and Plan Assess & Plan/Chief Complaint Assessment: Severe debility following T12 laminectomy with bilateral decompression with T10- T11, T11-T12, T12-L1, L1-L2 posterior lateral fusion requiring Medtronic pedicle screws and local bone graft by Dr. Ash on 11/17/2021 at [facility] Severe debility History of depression and 96-hour hold due to suicidal ideation in the past 3 years ago Diabetes Anxiety Depression Hypertension Hypothyroidism MRSA infection Urinary retention 11/25/21 Plan: Pain control Supportive correction meds Fall risk Bowel regimen 11/24/21: Monitor closely Pain management Monitor BP 11/25/21: Monitor closely Pain mngt Urecholine 11/26/21: Pyridium Monitor pain (1) S/P spinal fusion ANA GARCIA DO Nov 26, 2021 06:24
[2021-11-26] MEDS: LEVOTHYROXINE 100 MCG (LEVOTHROID) TAB PO SCH (06:45)
[2021-11-26] MEDS: BETHANECHOL 25 MG (URECHOLINE) TAB PO SCH ×4 (06:45→21:00)
[2021-11-26 07:08] VITALS: BP 114/75
[2021-11-26] MEDS: GLIMEPIRIDE 2 MG (AMARYL) TAB PO SCH (08:25)
[2021-11-26] MEDS: FLUoxetine HCL 20 MG (PROzac) CAP PO SCH (08:25)
[2021-11-26] MEDS: GABAPENTIN 300 MG (NEURONTIN) CAP PO SCH ×3 (08:25→21:57)
[2021-11-26] MEDS: buPROPion SR 150 MG (WELLBUTRIN SR) TAB PO SCH ×2 (08:25→21:57)
[2021-11-26] MEDS: APAP 300 MG/CODEINE 30 MG (TYLENOL #3) TAB PO PRN ×3 (08:26→22:00)
[2021-11-26] MEDS: DOCUSATE SODIUM 100 MG (COLACE) CAP PO SCH ×2 (08:27→22:27)
[2021-11-26] MEDS: polyethylene glycoL POWDER 17 GM (MIRALAX) PACK PO SCH ×2 (08:27→22:27)
[2021-11-26] MEDS: SENNA W/DOCUSATE (SENOKOT S) TABLET PO SCH ×2 (08:27→22:27)
[2021-11-26] MEDS: PHENAZOPYRIDINE 100 MG (PYRIDIUM) TABLET PO SCH ×3 (11:32→18:05)
[2021-11-26 17:00] VITALS: BP 122/65
[2021-11-26 19:15] VITALS: BP 106/57
[2021-11-26] MEDS: inSUlin NPH (NovoLIN N) 1 UNIT/0.01 ML (CHARGE PER UNIT) SQ SCH (21:57)
[2021-11-27] MEDS: inSUlin ASPART (NovoLOG) 1 UNIT/0.01 ML (CHARGE PER UNIT) SC SCH ×4 (05:39→22:15)
--- NOTE | 2021-11-27 06:10 | PM&R Progress Note ---
Subjective HPI/CC On Admission Date Seen by Provider: Nov 27, 2021 Time Seen by Provider: 10:30 Subjective/Events-last exam 11/27/2021: Pt is doing well Incision looks good Hydrocodone will be used for pain Urecholine and Pyridium are helping post void residual Bowels moved yesterday 11/26/21: Patient feels better Pain controlled Urinary retention noted Pyridium TID prn Urology consult a possibility tomorrow 11/25/21: Patient feels about the same Flat affect noted Reassured BM+ Urinary retention so ordered Urecholine 11/24/2021: Pt is doing pretty well Has chronic nausea Dressing over the incision will be changed per Dr. Ash's orders Pain is 4-5 Appears to be very depressed so will monitor that closely Review of Systems General: Fatigue, Malaise Musculoskeletal: back pain Objective Exam Vital Signs Vital Signs Date Time Temp Pulse Resp B/P (MAP) Pulse Ox O2 Delivery O2 Flow Rate FiO2 11/27/21 21:00 Room Air 11/27/21 20:00 37.0 80 18 115/71 (86) 95 Capillary Refill : General Appearance: No Apparent Distress, WD/WN, Chronically ill HEENT: PERRL/EOMI, Normal ENT Inspection, Pharynx Normal Neck: Full Range of Motion, Normal Inspection, Non Tender, Supple, Carotid Bruit Respiratory: Chest Non Tender, Lungs Clear, Normal Breath Sounds, No Accessory Muscle Use, No Respiratory Distress Cardiovascular: Regular Rate, Rhythm, No Edema, No Gallop, No JVD, No Murmur, Normal Peripheral Pulses Gastrointestinal: Normal Bowel Sounds, No Organomegaly, No Pulsatile Mass, Non Tender, Soft Back: CVA Tenderness (L), CVA Tenderness (R), Decreased Range of Motion, Muscle Spasm, Vertebral Tenderness Extremity: Normal Capillary Refill, Normal Inspection, Normal Range of Motion (Except lower extremities), Non Tender, No Calf Tenderness, No Pedal Edema Neurologic/Psychiatric: Alert, Oriented x3, yard general car supervisor II-XII Norm as Tested, Depressed Affect, Motor Weakness (Lower extremities severe weakness) Skin: Normal Color, Warm/Dry Lymphatic: No Adenopathy Results/Procedures Lab Laboratory Tests 11/27/21 06:56 Patient resulted labs reviewed. FIM Transfers Therapy Code Descriptions/Definitions Functional [place] Measure: 0=Not Assessed/NA 4=Minimal Assistance 1=Total Assistance 5=Supervision or Setup 2=Maximal Assistance 6=Modified [place] 3=Moderate Assistance 7=Complete IndependenceSCALE: Activities may be completed with or without assistive devices. 3-Jzmlrdoqrc-afdfqcb completes the activity by him/herself with no assistance from a helper. 5-Set-up or Clean-up Assistance-helper sets up or cleans up; patient completes activity. [place] assists only prior to or following the activity. 4-Supervision or Touching Assistance-helper provides verbal cues and/or touching/steadying and/or contact guard assistance as patient completes activity. Assistance may be provided throughout the activity or intermittently. 3-Partial/Moderate Assistance-helper does LESS THAN HALF the effort. [place] lifts, holds or supports trunk or limbs, but provides less than half the effort. 2-Substantial/Maximal Assistance-helper does MORE THAN HALF the effort. [place] lifts or holds trunk or limbs and provides more than half the effort. 8-Vflwakirl-zidana does ALL the effort. Patient does none of the effort to complete the activity. Or, the assistance of 2 or more helpers is required for the patient to complete the activity. If activity was not attempted, code reason: 7-Patient Refused. 9-Not Applicable-not attempted and the patient did not perform the activity before the current illness, exacerbation or injury. 10-Not Attempted due to Environmental Limitations-(lack of equipment, weather restraints, etc.). 88-Not Attempted due to Medical Conditions or Safety Concerns. Roll Left to Right (QC): 3 Sit to Lying (QC): 2 Sit to Stand (QC): 3 Chair/Kle-fm-Iftvn Xfer(QC): 3 Car Transfer (QC): 2 Gait Training Does the Patient Walk?: Yes Distance: 10' x 3 5' x 2 Walk 10 feet (QC): 88 Walk 50 ft with 2 Turns(QC): 88 Walk 150 ft (QC): 88 Walking 10ft/uneven surface-QC: 88 Gait Persons Needed: 2 Gait Assistive Device: FWW Wheelchair Training Does the Pt Use a Wheelchair?: Yes Distance: 100'x2 Wheel 50 ft with 2 turns (QC): 4 Wheel 150 ft (QC): 88 Type of Wheelchair: Manual Stair Training 1 Step (curb) (QC): 88 4 Steps (QC): 88 12 Steps (QC): 88 Balance Picking up an Object (QC): 88 ADL-Treatment Eating (QC): 6 Oral Hygiene (QC): 6 Bathing Location: L Arm, R Arm, Chest, Abdomen, Perineal Area Shower/Bathe Self (QC): 2 Upper Body Dressing (QC): 3 (mod A) Lower Body Dressing (QC): 2 On/Off Footwear (QC): 1 Toileting Hygiene (QC): 2 Assessment/Plan Assessment and Plan Assess & Plan/Chief Complaint Assessment: Severe debility following T12 laminectomy with bilateral decompression with T10- T11, T11-T12, T12-L1, L1-L2 posterior lateral fusion requiring Medtronic pedicle screws and local bone graft by Dr. Ash on 11/17/2021 at [facility] Severe debility History of depression and 96-hour hold due to suicidal ideation in the past 3 years ago Diabetes Anxiety Depression Hypertension Hypothyroidism MRSA infection Urinary retention 11/25/21 Plan: Pain control Supportive long term meds Fall risk Bowel regimen 11/24/21: Monitor closely Pain management Monitor BP 11/25/21: Monitor closely Pain mngt Urecholine 11/26/21: Pyridium Monitor pain 11/27/2021: Continue bladder meds Supportive care (1) S/P spinal fusion ANA GARCIA DO Nov 27, 2021 06:10
[2021-11-27] MEDS: LEVOTHYROXINE 100 MCG (LEVOTHROID) TAB PO SCH (06:51)
[2021-11-27] MEDS: CLOTRIMAZOLE 1% VAG CR (GYNE LOTRIMIN) 45 GM PV SCH ×2 (06:51→22:11)
[2021-11-27] MEDS: BETHANECHOL 25 MG (URECHOLINE) TAB PO SCH ×4 (06:51→22:10)
[2021-11-27 07:11] LABS: BASOPHILS # (AUTO) 0.1 10^3/uL (0.0-0.1); BASOPHILS % (AUTO) 1 % (0-10); EOSINOPHILS # (AUTO) 0.4 10^3/uL (0.0-0.3); EOSINOPHILS % (AUTO) 3 % (0-10); HEMATOCRIT 38 % (35-52); HEMOGLOBIN 11.8 g/dL (11.5-16.0); LYMPHOCYTES # (AUTO) 1.8 10^3/uL (1.0-4.0); LYMPHOCYTES % (AUTO) 13 % (12-44); MEAN CORPUSCULAR HEMOGLOBIN 28 pg (25-34); MEAN CORPUSCULAR HGB CONC 31 g/dL (32-36); MEAN CORPUSCULAR VOLUME 90 fL (80-99); MEAN PLATELET VOLUME 11.6 fL (9.0-12.2); MONOCYTES # (AUTO) 1.2 10^3/uL (0.0-1.0); MONOCYTES % (AUTO) 9 % (0-12); NEUTROPHILS % (AUTO) 74 % (42-75); PLATELET COUNT 285 10^3/uL (130-400); WHITE BLOOD COUNT 13.5 10^3/uL (4.3-11.0)
[2021-11-27 07:29] LABS: BILIRUBIN,TOTAL 0.4 MG/DL (0.1-1.0); CALCIUM 9.6 MG/DL (8.5-10.1); CREATININE SERUM 0.88 MG/DL (0.60-1.30); POTASSIUM 4.1 MMOL/L (3.6-5.0); TOTAL PROTEIN 6.6 GM/DL (6.4-8.2)
[2021-11-27] MEDS: GLIMEPIRIDE 2 MG (AMARYL) TAB PO SCH (07:45)
[2021-11-27] MEDS: APAP 300 MG/CODEINE 30 MG (TYLENOL #3) TAB PO PRN (07:46)
[2021-11-27 07:52] VITALS: BP 136/67
[2021-11-27] MEDS: polyethylene glycoL POWDER 17 GM (MIRALAX) PACK PO SCH ×2 (08:19→22:15)
[2021-11-27] MEDS: DOCUSATE SODIUM 100 MG (COLACE) CAP PO SCH ×2 (08:19→22:15)
[2021-11-27] MEDS: SENNA W/DOCUSATE (SENOKOT S) TABLET PO SCH ×2 (08:20→22:15)
--- NOTE | 2021-11-27 09:01 | Physical Therapy Daily Note ---
PT Daily Note-Current Subjective Pt laying Supine in bed upon arrival. Pt agrees to PT/OT co-treat due to increased weakness, activity tolerance as well as coordination of UE & LE for transfers and mobility. Pain Pain Description: Ache Comment: Generalized achiness throughout body, not rated Mental Status Patient Orientation: Person, Place, Time, Situation Attachments: Other-See Comments (TLSO Brace) Transfers SCALE: Activities may be completed with or without assistive devices. 3-Hpioryyifu-bwutcxf completes the activity by him/herself with no assistance from a helper. 5-Set-up or Clean-up Assistance-helper sets up or cleans up; patient completes activity. [place] assists only prior to or following the activity. 4-Supervision or Touching Assistance-helper provides verbal cues and/or touching/steadying and/or contact guard assistance as patient completes activity. Assistance may be provided throughout the activity or intermittently. 3-Partial/Moderate Assistance-helper does LESS THAN HALF the effort. [place] lifts, holds or supports trunk or limbs, but provides less than half the effort. 2-Substantial/Maximal Assistance-helper does MORE THAN HALF the effort. [place] lifts or holds trunk or limbs and provides more than half the effort. 7-Zrynyomuy-mbrxwp does ALL the effort. Patient does none of the effort to complete the activity. Or, the assistance of 2 or more helpers is required for the patient to complete the activity. If activity was not attempted, code reason: 7-Patient Refused. 9-Not Applicable-not attempted and the patient did not perform the activity before the current illness, exacerbation or injury. 10-Not Attempted due to Environmental Limitations-(lack of equipment, weather restraints, etc.). 88-Not Attempted due to Medical Conditions or Safety Concerns. Roll Left & Right (QC): 2 Lying to Sitting/Side of Bed(Q: 2 Sit to Stand (QC): 3 Chair/Mim-jt-Jfshw Xfer(QC): 3 Weight Bearing Full Weight Bearing Full Weight Bearing Wheelchair Training Does the Pt Use a Wheelchair?: Yes Type of Wheelchair: Manual Exercises Seated Therapy Exercises: Sit to stand Treatments Pt laying supine in bed prior to tx. PT/OT cotreat due to skill of 2 clinicians required which a rehab director could not perform d/t complex medical needs of pt, decreased strength, activity tolerance, mobility/transfers. OT focused on ADLs, UE placement, cues for safety and sequencing, and PT focused on LE placement, gross overall movement, transfers, and mobility. Max A required to don TLSO brace and pants in supine, total A to don gripper socks. Pt transferred supine to seated EOB with max A, SPT to w/c. Pt independently wheeled w/c to therapy gym to participate in static and dynamic standing exercises at the parallel bars. Pt completed 5 rounds of standing for ~1minute, progressing from 2 person assist to 1 person and min A to mod A support when standing. Pt required RB in b etween rounds. Pt held on to parallel bars for first 2 rounds and progressed to 12 contralateral shoulder touches, 12 alternating UE reaches, all planes; and 12 alternating UE reaches crossing midline,all planes. End of co-treat with PT, OT continued with individual tx. Assessment Current Status: Good Progress Pt has improved w/transfers from previous tx. PT Short Term Goals Short Term Goals Time Frame: Dec 01, 2021 Roll Left & Right: 4 Sit to lyin (Nell) Lying to sitting on side of be: 3 (Nell) Sit to stand: 3 (modA) Chair/ysk-rl-jzegg transfer: 4 (CGA) Walk 10 feet: 4 (CGA) PT Flatwork Ironer Goals Flatwork Ironer Goals PT [place] Ironer Goals Time Frame: Dec 15, 2021 Roll Left & Right (QC): 6 Sit to Lying (QC): 4 (SBA) Lying-Sitting on Side/Bed(QC): 4 (SBA) Sit to Stand (QC): 3 (Nell) Chair/Ypq-mn-Ifxoo Xfer(QC): 4 (SBA) Toilet Transfer (QC): 4 (SBA) Car Transfer (QC): 3 (Nell) Does the Patient Walk: Yes Walk 10 feet (QC): 4 (SBA) Walk 50ft with 2 Turns (QC): 4 (SBA) Walk 150 ft (QC): 88 Walking 10ft on Uneven Surface: 4 (CGA) 1 Step (curb) (QC): 88 4 Steps (QC): 88 12 Steps (QC): 88 Picking up an Object (QC): 4 Wheel 50 feet with 2 turns (QC: 6 Wheel 150 feet: 6 PT Plan Problem List Problem List: Activity Tolerance, Functional Strength, Transfer Treatment/Plan Treatment Plan: Continue Plan of Care Treatment Plan: Bed Mobility, Education, Functional Activity Yennifer, Functional Strength, Group Therapy, Gait, Safety, Therapeutic Exercise, Transfers Treatment Duration: Dec 15, 2021 Frequency: At least 5 of 7 days/Wk (IRF) Estimated Hrs Per Day: 1.5 hours per day Patient and/or Family Agrees t: Yes Safety Risks/Education Patient Education: Transfer Techniques, Correct Positioning, Reviewed Don/Doff Brace, Safety Issues Teaching Recipient: Patient Teaching Methods: Discussion Response to Teaching: Verbalize Understanding Time/GCodes Time In: 800 Time Out: 900 Total Billed Treatment Time: 60 Total Billed Treatment Co-treat w/OT for 60m (800-900) 1, FA x4 (60m) NIC MAX PTA Nov 27, 2021 09:01
--- NOTE | 2021-11-27 09:28 | Occupational Ther Daily Note ---
OT Current Status-Daily Note Subjective Pt laying supine in bed prior to tx. Pt stated, "I don't feel so good" and that her "whole body hurts." Pt was agreeable to tx. Mental Status/Objective Patient Orientation: Person, Situation, Normal For Age ADL-Treatment Therapy Code Descriptions/Definitions Functional [place] Measure: 0=Not Assessed/NA 4=Minimal Assistance 1=Total Assistance 5=Supervision or Setup 2=Maximal Assistance 6=Modified [place] 3=Moderate Assistance 7=Complete IndependenceSCALE: Activities may be completed with or without assistive devices. 9-Ennacwbryz-xbfchpl completes the activity by him/herself with no assistance from a helper. 5-Set-up or Clean-up Assistance-helper sets up or cleans up; patient completes activity. [place] assists only prior to or following the activity. 4-Supervision or Touching Assistance-helper provides verbal cues and/or touching/steadying and/or contact guard assistance as patient completes activity. Assistance may be provided throughout the activity or intermittently. 3-Partial/Moderate Assistance-helper does LESS THAN HALF the effort. [place] lifts, holds or supports trunk or limbs, but provides less than half the effort. 2-Substantial/Maximal Assistance-helper does MORE THAN HALF the effort. [place] lifts or holds trunk or limbs and provides more than half the effort. 1-Mroybynye-aepzyc does ALL the effort. Patient does none of the effort to complete the activity. Or, the assistance of 2 or more helpers is required for the patient to complete the activity. If activity was not attempted, code reason: 7-Patient Refused. 9-Not Applicable-not attempted and the patient did not perform the activity before the current illness, exacerbation or injury. 10-Not Attempted due to Environmental Limitations-(lack of equipment, weather restraints, etc.). 88-Not Attempted due to Medical Conditions or Safety Concerns. Eating (QC): 6 Oral Hygiene (QC): 5 (Setup at sink) Lower Body Dressing (QC): 2 (Max A at bed level) On/Off Footwear: 1 Other Treatment Pt laying supine in bed prior to tx. PT/OT cotreat due to skill of 2 clinicians required which a technology specialist could not perform d/t complex medical needs of pt, decreased strength, activity tolerance, mobility/transfers. OT focused on ADLs, UE placement, cues for safety and sequencing, and PT focused on LE placement, gross overall movement, transfers, and mobility. Max A required to don TLSO brace and pants in supine, total A to don gripper socks. Pt transferred supine to seated EOB with max A, SPT to w/c. Pt independently wheeled w/c to therapy gym to participate in static and dynamic standing exercises at the parallel bars. Pt completed 5 rounds of standing for ~1minute, progressing from 2 person assist to 1 person and min A to mod A support when standing. Pt required RB in between rounds. Pt held on to parallel bars for first 2 rounds and progressed to 12 contralateral shoulder touches, 12 alternating UE reaches, all planes; and 12 alternating UE reaches crossing midline,all planes. End of cotreat with PT, OT continued with individual tx. Pt independently wheeled w/c back to bathroom to complete oral hygiene and wash her hair seated at the sink. Pt transferred to recliner, SPT, with mod A. Pt participated in graded clothespins (1-5lbs) and graded Theraputty (red/orange-medium level of difficulty) with beads to address fine motor strength and UE activity tolerance. Pt transferred from recliner to bed, SPT, with mod A. Post tx, pt left supine in bed, TLSO brace doffed, call light within reach, and all needs met. Education OT Patient Education: Correct positioning, Energy conservation, Exercise program, Modified ADL techniques, Progress toward Goal/Update tx plan, Purpose of tx/functional activities, Rehab process, Safety issues, Transfer techniques, W/C management Teaching Recipient: Patient Teaching Methods: Demonstration, Discussion Response to Teaching: Verbalize Understanding, Return Demonstration OT Short Term Goals Short Term Goals Time Frame: Dec 08, 2021 Toileting hygiene: 3 Shower/bathe self: 3 Upper body dressin Lower body dressin Putting on/taking off footwear: 3 OT Feeder Associate Goals Correction Goals Time Frame: Dec 22, 2021 Eating (QC): 6 Oral Hygiene (QC): 6 Toileting Hygiene (QC): 4 Shower/Bathe Self (QC): 5 (bed level sponge bath) Upper Body Dressing (QC): 5 (bed level) Lower Body Dressing (QC): 4 On/Off Footwear (QC): 4 Additional Goals: 1-Demonstrate ADL Tasks, 2-Verbalize Understanding, 3- ImproveStrength/Yennifer 1=Demonstrate adherence to instructed precautions during ADL tasks. 2=Patient will verbalize/demonstrate understanding of assistive devices/modifications for ADL. 3=Patient will improve strength/tolerance for activity to enable patient to perform ADL's. OT Education/Plan Problem List/Assessment Assessment: Decreased Activ Tolerance, Decreased UE Strength, Impaired Bed Mobility, Impaired Funct Balance, Impaired I ADL's, Impaired Self-Care Skills, Restricted Funct UE ROM Discharge Recommendations Plan/Recommendations: Continue POC Treatment Plan/Plan of Care Patient would benefit from OT for education, treatment and training to promote independence in ADL's, mobility, safety and/or upper extremity function for ADL's. Plan of Care: ADL Retraining, Cognitive Retraining, Concurrent Therapy, Functional Mobility, Group Exercise/Act as Ind Treatment Duration: Nov 24, 2021 Frequency: 5 times per week Estimated Hrs Per Day: 1 hour per day Rehab Potential: Fair Time/GCodes Start Time: 08:00 Stop Time: 09:30 Total Time Billed (hr/min): 90 Billed Treatment Time cotreat x60'. OT tx x30' 1, FA 4 (60'), ADL 2 (30') RHYS MENEZES OT Nov 27, 2021 09:27
[2021-11-27] MEDS: buPROPion SR 150 MG (WELLBUTRIN SR) TAB PO SCH ×2 (09:29→22:10)
[2021-11-27] MEDS: PHENAZOPYRIDINE 100 MG (PYRIDIUM) TABLET PO SCH ×3 (09:29→18:46)
[2021-11-27] MEDS: FLUoxetine HCL 20 MG (PROzac) CAP PO SCH (09:29)
[2021-11-27] MEDS: GABAPENTIN 300 MG (NEURONTIN) CAP PO SCH ×3 (09:29→22:10)
[2021-11-27] MEDS: HYDROcodone/APAP 7.5 MG/325 MG (LORTAB, LORCET PLUS) TABLET PO PRN ×2 (12:34→17:30)
--- NOTE | 2021-11-27 14:01 | Physical Therapy Daily Note ---
PT Daily Note-Current Subjective Pt laying Supine in bed upon arrival. Pt agrees to PT. Pain Pain Description: Ache Comment: Reports but doesn't rate Mental Status Patient Orientation: Person, Place, Time, Situation Transfers SCALE: Activities may be completed with or without assistive devices. 9-Nszihnytra-sexkyuo completes the activity by him/herself with no assistance from a helper. 5-Set-up or Clean-up Assistance-helper sets up or cleans up; patient completes activity. [place] assists only prior to or following the activity. 4-Supervision or Touching Assistance-helper provides verbal cues and/or touching/steadying and/or contact guard assistance as patient completes activity. Assistance may be provided throughout the activity or intermittently. 3-Partial/Moderate Assistance-helper does LESS THAN HALF the effort. [place] li fts, holds or supports trunk or limbs, but provides less than half the effort. 2-Substantial/Maximal Assistance-helper does MORE THAN HALF the effort. [place] lifts or holds trunk or limbs and provides more than half the effort. 9-Ekbsubbfr-dskijz does ALL the effort. Patient does none of the effort to complete the activity. Or, the assistance of 2 or more helpers is required for the patient to complete the activity. If activity was not attempted, code reason: 7-Patient Refused. 9-Not Applicable-not attempted and the patient did not perform the activity before the current illness, exacerbation or injury. 10-Not Attempted due to Environmental Limitations-(lack of equipment, weather restraints, etc.). 88-Not Attempted due to Medical Conditions or Safety Concerns. Weight Bearing Full Weight Bearing Full Weight Bearing Exercises Supine Ex: Ankle pumps, Quad Set, Glut sets, Heel Slides, Short Arc Quads, Straight leg raise, Hip abd/add Supine Reps: 10 Treatments LABOR RELATIONS REPRESENTATIVE issues and reviews written HEP for Supine & Seated EX. Pt resting in bed w/all needs met, call light next to pt. Assessment Current Status: Good Progress Pt fatigues quickly and needs some assistance dami. w/L LE. PT Short Term Goals Short Term Goals Time Frame: Dec 01, 2021 Roll Left & Right: 4 Sit to lyin (Nell) Lying to sitting on side of be: 3 (Nell) Sit to stand: 3 (modA) Chair/npj-li-qsfpe transfer: 4 (CGA) Walk 10 feet: 4 (CGA) PT Fdc Goals [place] Goals PT [place] Goals Time Frame: Dec 15, 2021 Roll Left & Right (QC): 6 Sit to Lying (QC): 4 (SBA) Lying-Sitting on Side/Bed(QC): 4 (SBA) Sit to Stand (QC): 3 (Nell) Chair/Mnx-jx-Qvufy Xfer(QC): 4 (SBA) Toilet Transfer (QC): 4 (SBA) Car Transfer (QC): 3 (Nell) Does the Patient Walk: Yes Walk 10 feet (QC): 4 (SBA) Walk 50ft with 2 Turns (QC): 4 (SBA) Walk 150 ft (QC): 88 Walking 10ft on Uneven Surface: 4 (CGA) 1 Step (curb) (QC): 88 4 Steps (QC): 88 12 Steps (QC): 88 Picking up an Object (QC): 4 Wheel 50 feet with 2 turns (QC: 6 Wheel 150 feet: 6 PT Plan Problem List Problem List: Activity Tolerance, Functional Strength Treatment/Plan Treatment Plan: Continue Plan of Care Treatment Plan: Bed Mobility, Education, Functional Activity Yennifer, Functional Strength, Group Therapy, Gait, Safety, Therapeutic Exercise, Transfers Treatment Duration: Dec 15, 2021 Frequency: At least 5 of 7 days/Wk (IRF) Estimated Hrs Per Day: 1.5 hours per day Patient and/or Family Agrees t: Yes Safety Risks/Education Patient Education: Issued Written HEP, Correct Positioning Teaching Recipient: Patient Teaching Methods: Discussion Response to Teaching: Verbalize Understanding Time/GCodes Time In: 1300 Time Out: 1330 Total Billed Treatment Time: 30 Total Billed Treatment 1, EX x2 (30m) NIC MAX PTA Nov 27, 2021 14:01
[2021-11-27] MEDS ORDERED: GABA300C PO (14:20)
[2021-11-27 20:00] VITALS: BP 115/71
[2021-11-27] MEDS: inSUlin NPH (NovoLIN N) 1 UNIT/0.01 ML (CHARGE PER UNIT) SQ SCH (22:11)
[2021-11-28] MEDS: inSUlin ASPART (NovoLOG) 1 UNIT/0.01 ML (CHARGE PER UNIT) SC SCH ×4 (06:28→21:11)
[2021-11-28] MEDS: BETHANECHOL 25 MG (URECHOLINE) TAB PO SCH ×3 (06:44→17:22)
[2021-11-28] MEDS: LEVOTHYROXINE 100 MCG (LEVOTHROID) TAB PO SCH (06:44)
--- NOTE | 2021-11-28 07:03 | PM&R Progress Note ---
Subjective HPI/CC On Admission Date Seen by Provider: Nov 28, 2021 Time Seen by Provider: 11:00 Subjective/Events-last exam 11/28/21: Pt having some hypoglycemia She did stand up and pivot with therapy Psych consult will be tomorrow at 1100 Holding oral hypoglycemic and NPH insulin 11/27/2021: Pt is doing well Incision looks good Hydrocodone will be used for pain Urecholine and Pyridium are helping post void residual Bowels moved yesterday 11/26/21: Patient feels better Pain controlled Urinary retention noted Pyridium TID prn Urology consult a possibility tomorrow 11/25/21: Patient feels about the same Flat affect noted Reassured BM+ Urinary retention so ordered Urecholine 11/24/2021: Pt is doing pretty well Has chronic nausea Dressing over the incision will be changed per Dr. Ash's orders Pain is 4-5 Appears to be very depressed so will monitor that closely Review of Systems General: Fatigue, Malaise Objective Exam Vital Signs Vital Signs Date Time Temp Pulse Resp B/P (MAP) Pulse Ox O2 Delivery O2 Flow Rate FiO2 11/28/21 19:34 36.6 80 18 111/62 (78) 93 Room Air Capillary Refill : General Appearance: No Apparent Distress, WD/WN, Chronically ill HEENT: PERRL/EOMI, Normal ENT Inspection, Pharynx Normal Neck: Full Range of Motion, Normal Inspection, Non Tender, Supple, Carotid Bruit Respiratory: Chest Non Tender, Lungs Clear, Normal Breath Sounds, No Accessory Muscle Use, No Respiratory Distress Cardiovascular: Regular Rate, Rhythm, No Edema, No Gallop, No JVD, No Murmur, Normal Peripheral Pulses Gastrointestinal: Normal Bowel Sounds, No Organomegaly, No Pulsatile Mass, Non Tender, Soft Back: CVA Tenderness (L), CVA Tenderness (R), Decreased Range of Motion, Muscle Spasm, Vertebral Tenderness Extremity: Normal Capillary Refill, Normal Inspection, Normal Range of Motion (Except lower extremities), Non Tender, No Calf Tenderness, No Pedal Edema Neurologic/Psychiatric: Alert, Oriented x3, administration dean II-XII Norm as Tested, Depressed Affect, Motor Weakness (Lower extremities severe weakness) Skin: Normal Color, Warm/Dry Lymphatic: No Adenopathy Results/Procedures Lab Patient resulted labs reviewed. FIM Transfers Therapy Code Descriptions/Definitions Functional [place] Measure: 0=Not Assessed/NA 4=Minimal Assistance 1=Total Assistance 5=Supervision or Setup 2=Maximal Assistance 6=Modified [place] 3=Moderate Assistance 7=Complete IndependenceSCALE: Activities may be completed with or without assistive devices. 2-Iurlkduuuz-pygnelg completes the activity by him/herself with no assistance from a helper. 5-Set-up or Clean-up Assistance-helper sets up or cleans up; patient completes activity. [place] assists only prior to or following the activity. 4-Supervision or Touching Assistance-helper provides verbal cues and/or touching/steadying and/or contact guard assistance as patient completes activity. Assistance may be provided throughout the activity or intermittently. 3-Partial/Moderate Assistance-helper does LESS THAN HALF the effort. [place] lifts, holds or supports trunk or limbs, but provides less than half the effort. 2-Substantial/Maximal Assistance-helper does MORE THAN HALF the effort. [place] lifts or holds trunk or limbs and provides more than half the effort. 1-Iatfhhoiy-polxcw does ALL the effort. Patient does none of the effort to complete the activity. Or, the assistance of 2 or more helpers is required for the patient to complete the activity. If activity was not attempted, code reason: 7-Patient Refused. 9-Not Applicable-not attempted and the patient did not perform the activity before the current illness, exacerbation or injury. 10-Not Attempted due to Environmental Limitations-(lack of equipment, weather restraints, etc.). 88-Not Attempted due to Medical Conditions or Safety Concerns. Roll Left to Right (QC): 2 Sit to Lying (QC): 2 Sit to Stand (QC): 3 Chair/Jww-ny-Lteyc Xfer(QC): 3 Car Transfer (QC): 2 Gait Training Does the Patient Walk?: Yes Distance: 10' x 3 5' x 2 Walk 10 feet (QC): 88 Walk 50 ft with 2 Turns(QC): 88 Walk 150 ft (QC): 88 Walking 10ft/uneven surface-QC: 88 Gait Persons Needed: 2 Gait Assistive Device: FWW Wheelchair Training Does the Pt Use a Wheelchair?: Yes Distance: 100'x2 Wheel 50 ft with 2 turns (QC): 4 Wheel 150 ft (QC): 88 Type of Wheelchair: Manual Stair Training 1 Step (curb) (QC): 88 4 Steps (QC): 88 12 Steps (QC): 88 Balance Picking up an Object (QC): 88 ADL-Treatment Eating (QC): 6 Oral Hygiene (QC): 5 (Setup at sink) Bathing Location: L Arm, R Arm, Chest, Abdomen, Perineal Area Shower/Bathe Self (QC): 2 Upper Body Dressing (QC): 3 (mod A) Lower Body Dressing (QC): 2 (Max A at bed level) On/Off Footwear (QC): 1 Toileting Hygiene (QC): 2 Assessment/Plan Assessment and Plan Assess & Plan/Chief Complaint Assessment: Severe debility following T12 laminectomy with bilateral decompression with T10- T11, T11-T12, T12-L1, L1-L2 posterior lateral fusion requiring [employer] pedicle screws and local bone graft by Dr. Ash on 11/17/2021 at [facility] Severe debility History of depression and 96-hour hold due to suicidal ideation in the past 3 years ago Diabetes Anxiety Depression Hypertension Hypothyroidism MRSA infection Urinary retention 11/25/21 now resolved Hypoglycemia requiring adjustments in meds 11/28 Plan: Pain control Supportive assisted meds Fall risk Bowel regimen 11/24/21: Monitor closely Pain management Monitor BP 11/25/21: Monitor closely Pain mngt Urecholine 11/26/21: Pyridium Monitor pain 11/27/2021: Continue bladder meds Supportive care 11/28/21: Monitor closely Hold OHA and NPH (1) S/P spinal fusion ANA GARCIA DO Nov 28, 2021 07:03
[2021-11-28 07:36] VITALS: BP 145/67
[2021-11-28] MEDS: ONDANSETRON 4 MG (ZOFRAN) ORAL DISSOLVE TAB PO PRN (07:49)
[2021-11-28] MEDS: FLUoxetine HCL 20 MG (PROzac) CAP PO SCH (08:26)
[2021-11-28] MEDS: HYDROcodone/APAP 7.5 MG/325 MG (LORTAB, LORCET PLUS) TABLET PO PRN (08:27)
[2021-11-28] MEDS: DOCUSATE SODIUM 100 MG (COLACE) CAP PO SCH ×2 (08:27→21:20)
[2021-11-28] MEDS: PHENAZOPYRIDINE 100 MG (PYRIDIUM) TABLET PO SCH ×3 (08:27→18:43)
[2021-11-28] MEDS: buPROPion SR 150 MG (WELLBUTRIN SR) TAB PO SCH ×2 (08:27→21:11)
[2021-11-28] MEDS: GABAPENTIN 300 MG (NEURONTIN) CAP PO SCH ×3 (08:27→21:11)
[2021-11-28] MEDS: polyethylene glycoL POWDER 17 GM (MIRALAX) PACK PO SCH ×2 (08:27→21:21)
[2021-11-28] MEDS: SENNA W/DOCUSATE (SENOKOT S) TABLET PO SCH ×2 (08:28→21:21)
--- NOTE | 2021-11-28 08:55 | Occupational Ther Daily Note ---
OT Current Status-Daily Note Subjective Pt laying supine in bed prior to OT tx. Pt reports that she is "not feeling too good." She did not eat breakfast d/t n/v. Mental Status/Objective Patient Orientation: Person, Place, Situation ADL-Treatment Therapy Code Descriptions/Definitions Functional [employer] Measure: 0=Not Assessed/NA 4=Minimal Assistance 1=Total Assistance 5=Supervision or Setup 2=Maximal Assistance 6=Modified [employer] 3=Moderate Assistance 7=Complete IndependenceSCALE: Activities may be completed with or without assistive devices. 7-Bmrbezqmwd-ipxehbr completes the activity by him/herself with no assistance from a helper. 5-Set-up or Clean-up Assistance-helper sets up or cleans up; patient completes activity. [place] assists only prior to or following the activity. 4-Supervision or Touching Assistance-helper provides verbal cues and/or touching/steadying and/or contact guard assistance as patient completes activity. Assistance may be provided throughout the activity or intermittently. 3-Partial/Moderate Assistance-helper does LESS THAN HALF the effort. [place] lifts, holds or supports trunk or limbs, but provides less than half the effort. 2-Substantial/Maximal Assistance-helper does MORE THAN HALF the effort. [place] lifts or holds trunk or limbs and provides more than half the effort. 7-Vwvbzmbiz-jnvydd does ALL the effort. Patient does none of the effort to complete the activity. Or, the assistance of 2 or more helpers is required for the patient to complete the activity. If activity was not attempted, code reason: 7-Patient Refused. 9-Not Applicable-not attempted and the patient did not perform the activity before the current illness, exacerbation or injury. 10-Not Attempted due to Environmental Limitations-(lack of equipment, weather restraints, etc.). 88-Not Attempted due to Medical Conditions or Safety Concerns. Oral Hygiene (QC): 6 (seated in w/c at sink) Shower/Bathe Self (QC): 3 (Mod A. Pt unable to wash feet and buttocks at bed level) Upper Body Dressing (QC): 2 (Max A. Pt min A required help to pull shirt down in the back at bed level but max A donning TLSO brace.) Lower Body Dressing (QC): 2 (Max A. Pt required assistance threading and hiking pants at bed level. Pt able to assist in log rolling to pull pants over hips.) On/Off Footwear: 1 Other Treatment Pt laying supine in bed prior to OT tx. PT/OT cotreat d/t skill of 2 clinicians required which a vocational rehabilitation technician could not perform d/t complex medical needs of pt, d ecreased strength, activity tolerance, mobility/transfers. OT focused on ADLs, UE placement, cues for safety and sequencing, and PT focused on LE placement, gross overall movement, transfers, and mobility. Pt completed sponge bath at bed level, able to complete BLE sponge bath after being introduced to S. Pt participated in UB and LB dressing at bed level, TLSO brace donned in supine with Max A. Pt required Min A with bed mobility throughout bathing and dressing tasks, and she required Mod A with SPT from bed to w/c. Pt independently completed oral hygiene seated in w/c seated at the bathroom sink. Pt reported feeling nauseous after brushing her teeth and then vomited twice while seated at the bathroom sink. Nurse notified. End of cotreat. Pt left in w/c with PT. Education OT Patient Education: Correct positioning, Energy conservation, Exercise pro gram, Modified ADL techniques, Progress toward Goal/Update tx plan, Purpose of tx/functional activities, Reviewed precautions, Rehab process, Safety issues, Transfer techniques, Use of adapted equipment Teaching Recipient: Patient Teaching Methods: Discussion Response to Teaching: Verbalize Understanding, Return Demonstration OT Short Term Goals Short Term Goals Time Frame: Dec 08, 2021 Toileting hygiene: 3 Shower/bathe self: 3 Upper body dressin Lower body dressin Putting on/taking off footwear: 3 OT Back Tender Cylinder Goals Halfway Goals Time Frame: Dec 22, 2021 Eating (QC): 6 Oral Hygiene (QC): 6 Toileting Hygiene (QC): 4 Shower/Bathe Self (QC): 5 (bed level sponge bath) Upper Body Dressing (QC): 5 (bed level) Lower Body Dressing (QC): 4 On/Off Footwear (QC): 4 Additional Goals: 1-Demonstrate ADL Tasks, 2-Verbalize Understanding, 3- ImproveStrength/Yennifer 1=Demonstrate adherence to instructed precautions during ADL tasks. 2=Patient will verbalize/demonstrate understanding of assistive devices/modifications for ADL. 3=Patient will improve strength/tolerance for activity to enable patient to perform ADL's. OT Education/Plan Problem List/Assessment Assessment: Decreased Activ Tolerance, Decreased Safety Aware, Decreased UE Strength, Impaired Bed Mobility, Impaired Funct Balance, Impaired I ADL's, Impaired Self-Care Skills, Restricted Funct UE ROM Discharge Recommendations Plan/Recommendations: Continue POC Treatment Plan/Plan of Care Patient would benefit from OT for education, treatment and training to promote independence in ADL's, mobility, safety and/or upper extremity function for ADL's. Plan of Care: ADL Retraining, Cognitive Retraining, Concurrent Therapy, Functional Mobility, Group Exercise/Act as Ind Treatment Duration: Nov 24, 2021 Frequency: 5 times per week Estimated Hrs Per Day: 1 hour per day Rehab Potential: Fair Time/GCodes Start Time: 08:00 Stop Time: 09:00 Total Time Billed (hr/min): 60 Billed Treatment Time 1284-1310 (60') cotreat. 1, ADL 4 (60') RHYS MENEZES OT Nov 28, 2021 08:55
--- NOTE | 2021-11-28 09:34 | Physical Therapy Daily Note ---
PT Daily Note-Current Subjective Pt laying Supine in bed upon arrival. Pt reports that she is "not feeling too good." She did not eat breakfast d/t n/v. Pt agrees to PT/OT co-treat due to decreased activity tolerance, increased pain & nausea and coordination of UE & LE dami. w/transfers & balance. Pain Location Body Site: Back Pain Description: Ache Mental Status Patient Orientation: Person, Place, Time, Situation Attachments: Other-See Comments (TLSO BrACE) Transfers SCALE: Activities may be completed with or without assistive devices. 4-Ipjzdmtwbb-nxovjag completes the activity by him/herself with no assistance from a helper. 5-Set-up or Clean-up Assistance-helper sets up or cleans up; patient completes activity. [place] assists only prior to or following the activity. 4-Supervision or Touching Assistance-helper provides verbal cues and/or touching/steadying and/or contact guard assistance as patient completes activity. Assistance may be provided throughout the activity or intermittently. 3-Partial/Moderate Assistance-helper does LESS THAN HALF the effort. [place] lifts, holds or supports trunk or limbs, but provides less than half the effort. 2-Substantial/Maximal Assistance-helper does MORE THAN HALF the effort. [place] lifts or holds trunk or limbs and provides more than half the effort. 2-Mrnhynejp-dflimj does ALL the effort. Patient does none of the effort to complete the activity. Or, the assistance of 2 or more helpers is required for the patient to complete the activity. If activity was not attempted, code reason: 7-Patient Refused. 9-Not Applicable-not attempted and the patient did not perform the activity before the current illness, exacerbation or injury. 10-Not Attempted due to Environmental Limitations-(lack of equipment, weather restraints, etc.). 88-Not Attempted due to Medical Conditions or Safety Concerns. Roll Left & Right (QC): 2 Sit to Lying (QC): 3 Lying to Sitting/Side of Bed(Q: 3 Sit to Stand (QC): 3 Chair/Fqw-zu-Owgsn Xfer(QC): 3 Weight Bearing Full Weight Bearing Full Weight Bearing Wheelchair Training Does the Pt Use a Wheelchair?: Yes Type of Wheelchair: Manual Treatments Pt laying supine in bed prior to OT tx. PT/OT cotreat d/t skill of 2 clinicians required which a rehab manager could not perform d/t complex medical needs of pt, decreased strength, activity tolerance, mobility/transfers. OT focused on ADLs, UE placement, cues for safety and sequencing, and PT focused on LE placement, gross overall movement, transfers, and mobility. Pt completed sponge bath at bed level, able to complete BLE sponge bath after being introduced to [facility]. Pt participated in UB and LB dressing at bed level, TLSO brace donned in supine with Max A. Pt required Min A with bed mobility throughout bathing and dressing tasks, and she required Mod A with SPT from bed to w/c. Pt independently completed oral hygiene seated in w/c seated at the bathroom sink. Pt reported feeling nauseous after brushing her teeth and then vomited twice while seated at the bathroom sink. Nurse notified. OT departs and PT continues tx. PT and Nursing assist pt w/transfer back to EOB and lay Supine, repositioning to comfort. All needs met, call light in hand. Assessment Current Status: Fair Progress Pain and nausea limit participation w/Therapy although pt is making gains w/transfers and becoming more independent. PT Short Term Goals Short Term Goals Time Frame: Dec 01, 2021 Roll Left & Right: 4 Sit to lyin (Nell) Lying to sitting on side of be: 3 (Nell) Sit to stand: 3 (modA) Chair/rej-ej-bmqzf transfer: 4 (CGA) Walk 10 feet: 4 (CGA) PT Flat Clothier Goals Flat Clothier Goals PT Usp Goals Time Frame: Dec 15, 2021 Roll Left & Right (QC): 6 Sit to Lying (QC): 4 (SBA) Lying-Sitting on Side/Bed(QC): 4 (SBA) Sit to Stand (QC): 3 (Nell) Chair/Sqv-pk-Cftot Xfer(QC): 4 (SBA) Toilet Transfer (QC): 4 (SBA) Car Transfer (QC): 3 (Nell) Does the Patient Walk: Yes Walk 10 feet (QC): 4 (SBA) Walk 50ft with 2 Turns (QC): 4 (SBA) Walk 150 ft (QC): 88 Walking 10ft on Uneven Surface: 4 (CGA) 1 Step (curb) (QC): 88 4 Steps (QC): 88 12 Steps (QC): 88 Picking up an Object (QC): 4 Wheel 50 feet with 2 turns (QC: 6 Wheel 150 feet: 6 PT Plan Problem List Problem List: Activity Tolerance, Functional Strength Treatment/Plan Treatment Plan: Continue Plan of Care Treatment Plan: Bed Mobility, Education, Functional Activity Yennifer, Functional Strength, Group Therapy, Gait, Safety, Therapeutic Exercise, Transfers Treatment Duration: Dec 15, 2021 Frequency: At least 5 of 7 days/Wk (IRF) Estimated Hrs Per Day: 1.5 hours per day Patient and/or Family Agrees t: Yes Safety Risks/Education Patient Education: Transfer Techniques, Reviewed Precautions, Correct Positioning, Reviewed Don/Doff Brace Teaching Recipient: Patient Teaching Methods: Discussion Response to Teaching: Verbalize Understanding Time/GCodes Time In: 800 Time Out: 930 Total Billed Treatment Time: 90 Total Billed Treatment Co-treat w/OT for 60m (800-900) 1, FA x6 (90m) NIC MAX LEAN CONSULTANT Nov 28, 2021 09:34
[2021-11-28] MEDS: GLIMEPIRIDE 2 MG (AMARYL) TAB PO SCH (10:34)
--- NOTE | 2021-11-28 10:51 | Occupational Ther Daily Note ---
OT Current Status-Daily Note Subjective Pt laying supine prior to OT tx. Pt still reports feeling nauseous but agreeable to tx. Mental Status/Objective Patient Orientation: Person, Place, Situation ADL-Treatment Therapy Code Descriptions/Definitions Functional [place] Measure: 0=Not Assessed/NA 4=Minimal Assistance 1=Total Assistance 5=Supervision or Setup 2=Maximal Assistance 6=Modified [place] 3=Moderate Assistance 7=Complete IndependenceSCALE: Activities may be completed with or without assistive devices. 7-Ihjxilzkqb-abeimdj completes the activity by him/herself with no assistance from a helper. 5-Set-up or Clean-up Assistance-helper sets up or cleans up; patient completes activity. [place] assists only prior to or following the activity. 4-Supervision or Touching Assistance-helper provides verbal cues and/or touch ing/steadying and/or contact guard assistance as patient completes activity. Assistance may be provided throughout the activity or intermittently. 3-Partial/Moderate Assistance-helper does LESS THAN HALF the effort. [place] lifts, holds or supports trunk or limbs, but provides less than half the effort. 2-Substantial/Maximal Assistance-helper does MORE THAN HALF the effort. [place] lifts or holds trunk or limbs and provides more than half the effort. 5-Ufdipkwvd-cubrcq does ALL the effort. Patient does none of the effort to complete the activity. Or, the assistance of 2 or more helpers is required for the patient to complete the activity. If activity was not attempted, code reason: 7-Patient Refused. 9-Not Applicable-not attempted and the patient did not perform the activity before the current illness, exacerbation or injury. 10-Not Attempted due to Environmental Limitations-(lack of equipment, weather restraints, etc.). 88-Not Attempted due to Medical Conditions or Safety Concerns. Other Treatment Pt laying supine prior to OT tx. Pt verbalized discomfort laying on back, so OT and nurse helped reposition her on her R side, following back precautions. Pt and nurse education on positioning in side lying position while maintaining back precautions. Pt educated on using AE (sock aid and detector car operator) to increase IND in LBD and footwear. OT demonstrated how to use tools, further education planned in tomorrows session. Pt request bed [place], declined getting up to [facility] at this time. Post tx, pt left in supine on bed [place], nurse aid notified, call light within reach, and all needs met. Education OT Patient Education: Correct positioning, Energy conservation, Exercise program, Modified ADL techniques, Progress toward Goal/Update tx plan, Purpose of tx/functional activities, Reviewed precautions, Rehab process, Safety issues, Use of adapted equipment Teaching Recipient: Patient Teaching Methods: Demonstration, Discussion Response to Teaching: Verbalize Understanding OT Short Term Goals Short Term Goals Time Frame: Dec 08, 2021 Toileting hygiene: 3 Shower/bathe self: 3 Upper body dressin Lower body dressin Putting on/taking off footwear: 3 OT Fdc Goals Consultant Education Goals Time Frame: Dec 22, 2021 Eating (QC): 6 Oral Hygiene (QC): 6 Toileting Hygiene (QC): 4 Shower/Bathe Self (QC): 5 (bed level sponge bath) Upper Body Dressing (QC): 5 (bed level) Lower Body Dressing (QC): 4 On/Off Footwear (QC): 4 Additional Goals: 1-Demonstrate ADL Tasks, 2-Verbalize Understanding, 3- ImproveStrength/Yennifer 1=Demonstrate adherence to instructed precautions during ADL tasks. 2=Patient will verbalize/demonstrate understanding of assistive devices/modifications for ADL. 3=Patient will improve strength/tolerance for activity to enable patient to perform ADL's. OT Education/Plan Problem List/Assessment Assessment: Decreased Activ Tolerance, Decreased UE Strength, Impaired Bed Mobility, Impaired Funct Balance, Impaired I ADL's, Impaired Self-Care Skills, Restricted Funct UE ROM Discharge Recommendations Plan/Recommendations: Continue POC Equpiment Recommendations-D/C: Extended Bath Bench, Grocery Specialist, Sock Aide Treatment Plan/Plan of Care Patient would benefit from OT for education, treatment and training to promote independence in ADL's, mobility, safety and/or upper extremity function for ADL's. Plan of Care: ADL Retraining, Cognitive Retraining, Concurrent Therapy, Functional Mobility, Group Exercise/Act as Ind Treatment Duration: Nov 24, 2021 Frequency: 5 times per week Estimated Hrs Per Day: 1 hour per day Rehab Potential: Fair Time/GCodes Start Time: 10:20 Stop Time: 10:50 Total Time Billed (hr/min): 30 Billed Treatment Time 1, ADL 2 (30') RHYS MENEZES OT Nov 28, 2021 10:50
[2021-11-28] MEDS: APAP 300 MG/CODEINE 30 MG (TYLENOL #3) TAB PO PRN ×2 (17:26→23:42)
[2021-11-28 19:34] VITALS: BP 111/62
[2021-11-28] MEDS: CLOTRIMAZOLE 1% VAG CR (GYNE LOTRIMIN) 45 GM PV SCH (21:12)
[2021-11-29] MEDS: inSUlin ASPART (NovoLOG) 1 UNIT/0.01 ML (CHARGE PER UNIT) SC SCH (05:27)
--- NOTE | 2021-11-29 06:04 | PM&R Progress Note ---
Subjective HPI/CC On Admission Date Seen by Provider: Nov 29, 2021 Time Seen by Provider: 10:00 Subjective/Events-last exam 11/29/21: Pt is doing well Tylenol# 3 initiated with good results Post void residual is minimal Getting into chair with minimal assist Bowels moved on 11/2611/28/21: Pt having some hypoglycemia She did stand up and pivot with therapy Psych consult will be tomorrow at 1100 Holding oral hypoglycemic and NPH insulin 11/27/2021: Pt is doing well Incision looks good Hydrocodone will be used for pain Urecholine and Pyridium are helping post void residual Bowels moved yesterday 11/26/21: Patient feels better Pain controlled Urinary retention noted Pyridium TID prn Urology consult a possibility tomorrow 11/25/21: Patient feels about the same Flat affect noted Reassured BM+ Urinary retention so ordered Urecholine 11/24/2021: Pt is doing pretty well Has chronic nausea Dressing over the incision will be changed per Dr. Ash's orders Pain is 4-5 Appears to be very depressed so will monitor that closely Review of Systems General: Fatigue, Malaise Objective Exam Vital Signs Vital Signs Date Time Temp Pulse Resp B/P (MAP) Pulse Ox O2 Delivery O2 Flow Rate FiO2 11/29/21 20:13 37.2 80 16 143/64 (90) 92 Room Air Capillary Refill : General Appearance: No Apparent Distress, WD/WN, Chronically ill HEENT: PERRL/EOMI, Normal ENT Inspection, Pharynx Normal Neck: Full Range of Motion, Normal Inspection, Non Tender, Supple, Carotid Bruit Respiratory: Chest Non Tender, Lungs Clear, Normal Breath Sounds, No Accessory Muscle Use, No Respiratory Distress Cardiovascular: Regular Rate, Rhythm, No Edema, No Gallop, No JVD, No Murmur, Normal Peripheral Pulses Gastrointestinal: Normal Bowel Sounds, No Organomegaly, No Pulsatile Mass, Non Tender, Soft Back: CVA Tenderness (L), CVA Tenderness (R), Decreased Range of Motion, Muscle Spasm, Vertebral Tenderness Extremity: Normal Capillary Refill, Normal Inspection, Normal Range of Motion (Except lower extremities), Non Tender, No Calf Tenderness, No Pedal Edema Neurologic/Psychiatric: Alert, Oriented x3, soil science professor II-XII Norm as Tested, Depressed Affect, Motor Weakness (Lower extremities severe weakness) Skin: Normal Color, Warm/Dry Lymphatic: No Adenopathy Results/Procedures Lab Patient resulted labs reviewed. FIM Transfers Therapy Code Descriptions/Definitions Functional [place] Measure: 0=Not Assessed/NA 4=Minimal Assistance 1=Total Assistance 5=Supervision or Setup 2=Maximal Assistance 6=Modified [place] 3=Moderate Assistance 7=Complete IndependenceSCALE: Activities may be completed with or without assistive devices. 9-Mvjhurwyrk-gvzwhzz completes the activity by him/herself with no assistance from a helper. 5-Set-up or Clean-up Assistance-helper sets up or cleans up; patient completes activity. [place] assists only prior to or following the activity. 4-Supervision or Touching Assistance-helper provides verbal cues and/or touching/steadying and/or contact guard assistance as patient completes activity. Assistance may be provided throughout the activity or intermittently. 3-Partial/Moderate Assistance-helper does LESS THAN HALF the effort. [place] lifts, holds or supports trunk or limbs, but provides less than half the effort. 2-Substantial/Maximal Assistance-helper does MORE THAN HALF the effort. [place] lifts or holds trunk or limbs and provides more than half the effort. 8-Briplgxiq-yfsmex does ALL the effort. Patient does none of the effort to complete the activity. Or, the assistance of 2 or more helpers is required for the patient to complete the activity. If activity was not attempted, code reason: 7-Patient Refused. 9-Not Applicable-not attempted and the patient did not perform the activity before the current illness, exacerbation or injury. 10-Not Attempted due to Environmental Limitations-(lack of equipment, weather restraints, etc.). 88-Not Attempted due to Medical Conditions or Safety Concerns. Roll Left to Right (QC): 2 Sit to Lying (QC): 3 Sit to Stand (QC): 3 Chair/Mti-hq-[place] Xfer(QC): 3 Car Transfer (QC): 2 Gait Training Does the Patient Walk?: Yes Distance: 10' x 3 5' x 2 Walk 10 feet (QC): 88 Walk 50 ft with 2 Turns(QC): 88 Walk 150 ft (QC): 88 Walking 10ft/uneven surface-QC: 88 Gait Persons Needed: 2 Gait Assistive Device: FWW Wheelchair Training Does the Pt Use a Wheelchair?: Yes Distance: 100'x2 Wheel 50 ft with 2 turns (QC): 4 Wheel 150 ft (QC): 88 Type of Wheelchair: Manual Stair Training 1 Step (curb) (QC): 88 4 Steps (QC): 88 12 Steps (QC): 88 Balance Picking up an Object (QC): 88 ADL-Treatment Eating (QC): 6 Oral Hygiene (QC): 6 (seated in w/c at sink) Bathing Location: L Arm, R Arm, Chest, Abdomen, Perineal Area Shower/Bathe Self (QC): 3 (Mod A. Pt unable to wash feet and buttocks at bed level) Upper Body Dressing (QC): 2 (Max A. Pt min A required help to pull shirt down in the back at bed level but max A donning TLSO brace.) Lower Body Dressing (QC): 2 (Max A. Pt required assistance threading and hiking pants at bed level. Pt able to assist in log rolling to pull pants over hips.) On/Off Footwear (QC): 1 Toileting Hygiene (QC): 2 Assessment/Plan Assessment and Plan Assess & Plan/Chief Complaint Assessment: Severe debility following T12 laminectomy with bilateral decompression with T10- T11, T11-T12, T12-L1, L1-L2 posterior lateral fusion requiring [employer] pedicle screws and local bone graft by Dr. Ash on 11/17/2021 at [facility] Severe debility History of depression and 96-hour hold due to suicidal ideation in the past 3 years ago Diabetes Anxiety Depression Hypertension Hypothyroidism MRSA infection Urinary retention 11/25/21 now resolved Hypoglycemia requiring adjustments in meds 11/28 Plan: Pain control Supportive halfway meds Fall risk Bowel regimen 11/24/21: Monitor closely Pain management Monitor BP 11/25/21: Monitor closely Pain mngt Urecholine 11/26/21: Pyridium Monitor pain 11/27/2021: Continue bladder meds Supportive care 11/28/21: Monitor closely Hold OHA and NPH 11/29/21: Monitor glucose Pain control (1) S/P spinal fusion ANA GARCIA DO Nov 29, 2021 06:04
[2021-11-29] MEDS: BETHANECHOL 25 MG (URECHOLINE) TAB PO SCH ×3 (06:31→18:19)
[2021-11-29] MEDS: LEVOTHYROXINE 100 MCG (LEVOTHROID) TAB PO SCH (06:31)
[2021-11-29] MEDS: APAP 300 MG/CODEINE 30 MG (TYLENOL #3) TAB PO PRN (06:51)
[2021-11-29 08:00] VITALS: BP 142/69
--- NOTE | 2021-11-29 09:36 | Physical Therapy Daily Note ---
PT Daily Note-Current Subjective Pt sitting in recliner upon arrival. Pt agrees to PT/OT co-treat. Pain Location: Incisional Location Body Site: Back Pain Description: Ache Comment: Reports but doesn't rate Mental Status Patient Orientation: Person, Place, Situation Attachments: Other-See Comments (TLSO Brace) Transfers SCALE: Activities may be completed with or without assistive devices. 7-Ccsskwkeex-dqcomoi completes the activity by him/herself with no assistance from a helper. 5-Set-up or Clean-up Assistance-helper sets up or cleans up; patient completes activity. [place] assists only prior to or following the activity. 4-Supervision or Touching Assistance-helper provides verbal cues and/or touching/steadying and/or contact guard assistance as patient completes activity. Assistance may be provided throughout the activity or intermittently. 3-Partial/Moderate Assistance-helper does LESS THAN HALF the effort. [place] lifts, holds or supports trunk or limbs, but provides less than half the effort. 2-Substantial/Maximal Assistance-helper does MORE THAN HALF the effort. [place] lifts or holds trunk or limbs and provides more than half the effort. 6-Uyddatxve-gegqwr does ALL the effort. Patient does none of the effort to complete the activity. Or, the assistance of 2 or more helpers is required for the patient to complete the activity. If activity was not attempted, code reason: 7-Patient Refused. 9-Not Applicable-not attempted and the patient did not perform the activity before the current illness, exacerbation or injury. 10-Not Attempted due to Environmental Limitations-(lack of equipment, weather restraints, etc.). 88-Not Attempted due to Medical Conditions or Safety Concerns. Roll Left & Right (QC): 4 Sit to Lying (QC): 4 Sit to Stand (QC): 3 Chair/Bhx-mc-Fdtuz Xfer(QC): 3 Weight Bearing Full Weight Bearing Full Weight Bearing Gait Training Does the Patient Walk?: Yes Distance: 5' Gait Persons Needed: 1 Gait Assistive Device: FWW Wheelchair Training Does the Pt Use a Wheelchair?: Yes Wheel 50 ft with 2 turns (QC): 5 Wheel 150 ft (QC): 5 Type of Wheelchair: Manual Exercises Supine Ex: Ankle pumps, Quad Set, Glut sets, Heel Slides Supine Reps: 15 Seated Therapy Exercises: Sit to stand Treatments Pt seated in recliner prior to tx. PT/OT cotreat due to skill of 2 clinicians required which a vocational rehabilitation counselor could not perform d/t complex medical needs of pt, decreased strength, activity tolerance, mobility/transfers. OT focused on ADLs, UE placement, cues for safety and sequencing, and PT focused on LE placement, gross overall movement, transfers, and mobility. Pt used eyeglass assembler to hike pants while seated in recliner, assistance x2 for standing balance and hiking pants over hips. Pt attempted to walk to bathroom with FWW, ambulated ~5' with FWW before fatiguing and needing to sit in w/c. Pt independently completed oral hygiene and grooming tasks seated at the bathroom sink. Pt required min v/c's for w/c mobility when wheeling to therapy gym. Pt participated in dynamic standing tasks at table top, practicing sit<>stand with FWW, then reaching to touch cones on the table top. Pt was able to touch 5 cones, all planes, once with L hand and once with R hand before needed a seated RB. Pt was able to touch all 5 cones twice with L hand and twice with R hand before needed a seated RB on the second round. Pt completed 10 rings on ring arc with R hand while standing, and completed 10 rings with L hand while seated. Pt requested to use BSC after returning to room. Pt more fatigued after exercises, so she required assist x2 for standing balance and to doff/don pants. Pt returned to bed with Mod A, SPT. Pt lays Supine in bed & GLOBAL VP CREATIVE + CONTENT MARKETING assists w/doffing TLSO and donning new shirt. Pt completes Supine Ex and repositioned in bed with all needs met, call light in hand. Assessment Current Status: Fair Progress Pt has improved with EOB to Seated surface TF but is still very anxious and needs VC to sequence tasks. PT Short Term Goals Short Term Goals Time Frame: Dec 01, 2021 Roll Left & Right: 4 Sit to lyin (Nell) Lying to sitting on side of be: 3 (Nell) Sit to stand: 3 (modA) Chair/ymg-ee-hkesg transfer: 4 (CGA) Walk 10 feet: 4 (CGA) PT Nursing Home Goals Nursing Home Goals PT Nursing Home Goals Time Frame: Dec 15, 2021 Roll Left & Right (QC): 6 Sit to Lying (QC): 4 (SBA) Lying-Sitting on Side/Bed(QC): 4 (SBA) Sit to Stand (QC): 3 (Nell) Chair/Qmf-no-Ttzlx Xfer(QC): 4 (SBA) Toilet Transfer (QC): 4 (SBA) Car Transfer (QC): 3 (Nell) Does the Patient Walk: Yes Walk 10 feet (QC): 4 (SBA) Walk 50ft with 2 Turns (QC): 4 (SBA) Walk 150 ft (QC): 88 Walking 10ft on Uneven Surface: 4 (CGA) 1 Step (curb) (QC): 88 4 Steps (QC): 88 12 Steps (QC): 88 Picking up an Object (QC): 4 Wheel 50 feet with 2 turns (QC: 6 Wheel 150 feet: 6 PT Plan Problem List Problem List: Activity Tolerance, Functional Strength, Safety, Gait Treatment/Plan Treatment Plan: Continue Plan of Care Treatment Plan: Bed Mobility, Education, Functional Activity Yennifer, Functional Strength, Group Therapy, Gait, Safety, Therapeutic Exercise, Transfers Treatment Duration: Dec 15, 2021 Frequency: At least 5 of 7 days/Wk (IRF) Estimated Hrs Per Day: 1.5 hours per day Patient and/or Family Agrees t: Yes Safety Risks/Education Patient Education: Transfer Techniques, Correct Positioning, W/C Management, Reviewed Don/Doff Brace, Safety Issues Teaching Recipient: Patient Teaching Methods: Discussion Response to Teaching: Verbalize Understanding Time/GCodes Time In: 800 Time Out: 930 Total Billed Treatment Time: 90 Total Billed Treatment Co-treat w/OT for 60m (800-900) 1, FA x4 (60m) & EX (30m) NIC MAX GLOBAL VP CREATIVE [employer]ENT MARKETING Nov 29, 2021 09:36
--- NOTE | 2021-11-29 09:48 | Occupational Ther Daily Note ---
OT Current Status-Daily Note Subjective Pt seated in recliner with TLSO brace donned prior to OT tx. Pt denies nausea but still doesn't feel like eating. Pt agreeable to tx. Mental Status/Objective Patient Orientation: Person, Situation ADL-Treatment Therapy Code Descriptions/Definitions Functional [place] Measure: 0=Not Assessed/NA 4=Minimal Assistance 1=Total Assistance 5=Supervision or Setup 2=Maximal Assistance 6=Modified [place] 3=Moderate Assistance 7=Complete IndependenceSCALE: Activities may be completed with or without assistive devices. 4-Ykftqclyuk-giyjqmd completes the activity by him/herself with no assistance from a helper. 5-Set-up or Clean-up Assistance-helper sets up or cleans up; patient completes activity. [place] assists only prior to or following the activity. 4-Supervision or Touching Assistance-helper provides verbal cues and/or touching/steadying and/or contact guard assistance as patient completes activity. Assistance may be provided throughout the activity or intermittently. 3-Partial/Moderate Assistance-helper does LESS THAN HALF the effort. [place] lifts, holds or supports trunk or limbs, but provides less than half the effort. 2-Substantial/Maximal Assistance-helper does MORE THAN HALF the effort. [place] lifts or holds trunk or limbs and provides more than half the effort. 0-Ehcpiljhg-rffoaj does ALL the effort. Patient does none of the effort to complete the activity. Or, the assistance of 2 or more helpers is required for the patient to complete the activity. If activity was not attempted, code reason: 7-Patient Refused. 9-Not Applicable-not attempted and the patient did not perform the activity before the current illness, exacerbation or injury. 10-Not Attempted due to Environmental Limitations-(lack of equipment, weather restraints, etc.). 88-Not Attempted due to Medical Conditions or Safety Concerns. Oral Hygiene (QC): 6 (seated in w/c at sink) Lower Body Dressing (QC): 1 (Max A overall. Pt required assistance threading pants, but she was able to hike pants up using saturation equipment operator. Pt required assist x2 for standing balance and to hike pants.) Toileting Hygiene (QC): 1 (total A. Pt unable to don/doff pants or clean periarea. Assist x2 required in stand.) Toilet Transfer (QC): 3 (mod A on/off BSC.) Other Treatment Pt seated in recliner prior to tx. PT/OT cotreat due to skill of 2 clinicians required which a rehabilitation program coordinator could not perform d/t complex medical needs of pt, decreased strength, activity tolerance, mobility/transfers. OT focused on ADLs, UE placement, cues for safety and sequencing, and PT focused on LE placement, gross overall movement, transfers, and mobility. Pt used saturation equipment operator to hike pants while seated in recliner, assistance x2 for standing balance and hiking pants over hips. Pt attempted to walk to bathroom with FWW, ambulated ~5' with FWW before fatiguing and needing to sit in w/c. Pt independently completed oral hygiene and grooming tasks seated at the bathroom sink. Pt required min v/c's for w/c mobility when wheeling to therapy gym. Pt participated in dynamic standing tasks at table top, practicing sit<>stand with FWW, then reaching to touch cones on the table top. Pt was able to touch 5 cones, all planes, once with L hand and once with R hand before needed a seated RB. Pt was able to touch all 5 cones twice with L hand and twice with R hand before needed a seated RB on the second round. Pt completed 10 rings on ring arc with R hand while standing, and completed 10 rings with L hand while seated. Pt requested to use BSC after returning to room. Pt more fatigued after exercises, so she required assist x2 for standing balance and to doff/don pants. Pt returned to bed with Mod A, SPT. End of cotreat. Pt left EOB with PT. Education OT Patient Education: Correct positioning, Energy conservation, Exercise program, Instructions don/doff splint/brace, Modified ADL techniques, Progress toward Goal/Update tx plan, Purpose of tx/functional activities, Reviewed precautions, Rehab process, Transfer techniques, Use of adapted equipment, W/C management Teaching Recipient: Patient Teaching Methods: Demonstration, Discussion Response to Teaching: Verbalize Understanding, Return Demonstration OT Short Term Goals Short Term Goals Time Frame: Dec 08, 2021 Toileting hygiene: 3 Shower/bathe self: 3 Upper body dressin Lower body dressin Putting on/taking off footwear: 3 OT Trashman Goals Trashman Goals Time Frame: Dec 22, 2021 Eating (QC): 6 Oral Hygiene (QC): 6 Toileting Hygiene (QC): 4 Shower/Bathe Self (QC): 5 (bed level sponge bath) Upper Body Dressing (QC): 5 (bed level) Lower Body Dressing (QC): 4 On/Off Footwear (QC): 4 Additional Goals: 1-Demonstrate ADL Tasks, 2-Verbalize Understanding, 3- ImproveStrength/Yennifer 1=Demonstrate adherence to instructed precautions during ADL tasks. 2=Patient will verbalize/demonstrate understanding of assistive devices/modifications for ADL. 3=Patient will improve strength/tolerance for activity to enable patient to perform ADL's. OT Education/Plan Problem List/Assessment Assessment: Decreased Activ Tolerance, Decreased UE Strength, Impaired Bed Mobility, Impaired Funct Balance, Impaired I ADL's, Impaired Self-Care Skills, Restricted Funct UE ROM Discharge Recommendations Plan/Recommendations: Continue POC Treatment Plan/Plan of Care Patient would benefit from OT for education, treatment and training to promote independence in ADL's, mobility, safety and/or upper extremity function for ADL's. Plan of Care: ADL Retraining, Cognitive Retraining, Concurrent Therapy, Functional Mobility, Group Exercise/Act as Ind Treatment Duration: Nov 24, 2021 Frequency: 5 times per week Estimated Hrs Per Day: 1 hour per day Rehab Potential: Fair Time/GCodes Start Time: 08:00 Stop Time: 09:00 Total Time Billed (hr/min): 60 Billed Treatment Time [id number]: cotreat 1, ADL 2 (30'), FA 2 (30') RHYS MENEZES OT Nov 29, 2021 09:48
[2021-11-29] MEDS: GABAPENTIN 300 MG (NEURONTIN) CAP PO SCH ×3 (10:07→20:41)
[2021-11-29] MEDS: polyethylene glycoL POWDER 17 GM (MIRALAX) PACK PO SCH ×2 (10:07→19:27)
[2021-11-29] MEDS: FLUoxetine HCL 20 MG (PROzac) CAP PO SCH (10:07)
[2021-11-29] MEDS: DOCUSATE SODIUM 100 MG (COLACE) CAP PO SCH ×2 (10:07→20:41)
[2021-11-29] MEDS: SENNA W/DOCUSATE (SENOKOT S) TABLET PO SCH ×2 (10:07→20:41)
[2021-11-29] MEDS: PHENAZOPYRIDINE 100 MG (PYRIDIUM) TABLET PO SCH ×3 (10:08→18:19)
[2021-11-29] MEDS: buPROPion SR 150 MG (WELLBUTRIN SR) TAB PO SCH ×2 (10:08→20:41)
[2021-11-29 10:10] VITALS: BP 120/56
--- NOTE | 2021-11-29 10:57 | Occupational Ther Daily Note ---
OT Current Status-Daily Note Subjective Pt laying supine in bed without TLSO brace on prior to OT tx. Pt agreeable to tx. Mental Status/Objective Patient Orientation: Person, Place, Situation ADL-Treatment Therapy Code Descriptions/Definitions Functional [place] Measure: 0=Not Assessed/NA 4=Minimal Assistance 1=Total Assistance 5=Supervision or Setup 2=Maximal Assistance 6=Modified [place] 3=Moderate Assistance 7=Complete IndependenceSCALE: Activities may be completed with or without assistive devices. 4-Rdhgeiguvn-vxnfiax completes the activity by him/herself with no assistance from a helper. 5-Set-up or Clean-up Assistance-helper sets up or cleans up; patient completes activity. [place] assists only prior to or following the activity. 4-Supervision or Touching Assistance-helper provides verbal cues and/or touching/steadying and/or contact guard assistance as patient completes activity. Assistance may be provided throughout the activity or intermittently. 3-Partial/Moderate Assistance-helper does LESS THAN HALF the effort. [place] lifts, holds or supports trunk or limbs, but provides less than half the effort. 2-Substantial/Maximal Assistance-helper does MORE THAN HALF the effort. [place] lifts or holds trunk or limbs and provides more than half the effort. 7-Qdtbioaqi-pcpuoc does ALL the effort. Patient does none of the effort to complete the activity. Or, the assistance of 2 or more helpers is required for the patient to complete the activity. If activity was not attempted, code reason: 7-Patient Refused. 9-Not Applicable-not attempted and the patient did not perform the activity before the current illness, exacerbation or injury. 10-Not Attempted due to Environmental Limitations-(lack of equipment, weather restraints, etc.). 88-Not Attempted due to Medical Conditions or Safety Concerns. Other Treatment Pt participated in functional activities with 1lb wrist weight (on R wrist only d/t limited ROM in L UE) at bed level to increase UE strength and activity tolerance. Pt replicated three peg board designs then played three [employer]klikk. Pt often does not use L UE in activities d/t limited shoulder ROM (d/t prior injury), so she was encouraged to orange picker game pieces with L hand, cross midline to place piece in R hand, and put piece in game board. Pt needed min v/c's to maintain this pattern throughout session. OT engaged in conversation with pt throughout tasks to add additional cognitive demand, pt able to fully participate in conversation while completing task. Post tx, pt supine in bed with call light in reach and all needs met. Education OT Patient Education: Correct positioning, Energy conservation, Exercise program, Modified ADL techniques, Progress toward Goal/Update tx plan, Purpose of tx/functional activities, Reviewed precautions, Rehab process Teaching Recipient: Patient Teaching Methods: Discussion Response to Teaching: Verbalize Understanding OT Short Term Goals Short Term Goals Time Frame: Dec 08, 2021 Toileting hygiene: 3 Shower/bathe self: 3 Upper body dressin Lower body dressin Putting on/taking off footwear: 3 OT Nailing Machine Operator Goals Nailing Machine Operator Goals Time Frame: Dec 22, 2021 Eating (QC): 6 Oral Hygiene (QC): 6 Toileting Hygiene (QC): 4 Shower/Bathe Self (QC): 5 (bed level sponge bath) Upper Body Dressing (QC): 5 (bed level) Lower Body Dressing (QC): 4 On/Off Footwear (QC): 4 Additional Goals: 1-Demonstrate ADL Tasks, 2-Verbalize Understanding, 3- ImproveStrength/Yennifer 1=Demonstrate adherence to instructed precautions during ADL tasks. 2=Patient will verbalize/demonstrate understanding of assistive devices/modifications for ADL. 3=Patient will improve strength/tolerance for activity to enable patient to perform ADL's. OT Education/Plan Problem List/Assessment Assessment: Decreased Activ Tolerance, Decreased UE Strength, Impaired Bed Mobility, Impaired Funct Balance, Impaired I ADL's, Impaired Self-Care Skills, Restricted Funct UE ROM Discharge Recommendations Plan/Recommendations: Continue POC Treatment Plan/Plan of Care Patient would benefit from OT for education, treatment and training to promote independence in ADL's, mobility, safety and/or upper extremity function for ADL's. Plan of Care: ADL Retraining, Cognitive Retraining, Concurrent Therapy, Functional Mobility, Group Exercise/Act as Ind Treatment Duration: Nov 24, 2021 Frequency: 5 times per week Estimated Hrs Per Day: 1 hour per day Rehab Potential: Fair Time/GCodes Start Time: 10:15 Stop Time: 10:45 Total Time Billed (hr/min): 30 Billed Treatment Time 1, FA 2 (30') RHYS MENEZES OT Nov 29, 2021 10:57
--- NOTE | 2021-11-29 13:07 | Behavioral Health Consult ---
Consult- Consult Date Seen by Provider: Nov 29, 2021 Time Seen by Provider: 11:00 CPT Code: 48376 Psychodiagnostic Examination, 1 unit(s) Start Time: 11:00 am Stop Time: 11:48 am Chief Complaint: depression Referral: Maryjane Tamayo is a 66-year-old, , female referred by Dr. Santacruz for a clinical diagnostic assessment. Information for this evaluation was gathered from self-report and medical records. Presenting Problem: The presenting clinical problem is depression. She reported she is having a hard time with the idea that she may not be able to live on her own. She stated her in a snf. She reported she fell in September and went to the ER several times before she was told she needed surgery and was admitted to the hospital. She stated she did not realize she was injured as severely as she was. She reported she deals with stomach issues but has not really talked with her doctor. She stated at home she has figured out what she can eat without causing vomiting, abdominal pain, and diarrhea. She reported it has been hard being in the hospital because she has not figured out what she can eat. She stated she has been sleeping a lot. She reported prior to her injury she mostly stayed home. She stated she does have a friend that visits and drives her places. She reported she is prescribed Prozac and Wellbutrin but is not certain it helps. Overall symptoms observed or reported requiring current level of care include anergia, anxiety, appetite disturbance, depressed mood, familial stress/strain, grief, medical problems, and worry. Observations/Mental Status: Maryjane was lying in her bed when therapist arrived. Overall appearance was unremarkable clinically. Maryjane appeared to be an adequate historian. Observed gait and gross motor movements indicated protective guarding and limited movements. Earnest general approach to the evaluation was cooperative. Orientation was intact for person, place, time, and situation. Maryjane evidenced good understanding of the reason for the appointment. Earnest in-session behavior was cooperative. The predominant mood was depressed with blunted affect. Immediate attention and concentration was grossly intact. Memory functioning appeared to be intact. Level of intellectual functioning compared to same age peers was estimated to be in the average range. Thought processes were found to be generally logical, coherent and goal directed. Thought content appeared normal. There was no report or evidence of hallucinations or delusions. Psychomotor retardation was observed. Tone of voice was normal and controlled. Expressive speech was marked by fluent speech and language. Eye contact was fair. Insight was average. Overall, style of interacting during the appointment was appropriate and motivated. Current/Previous Mental Health Treatment: Past psychiatric history was reported as was last in outpatient psychotherapy approximately eight years ago at [facility]. She reported her PCP prescribes her anti-depressants. She reported she was hospitalization three years ago at the [facility] for suicidal ideation. Abuse history: none reported. Medical History: Medical conditions were reported as spinal surgery, diabetes, hypertension, and hypothyroidism. Drug allergies: none reported. Current physician is Dr. Todd. Recreational Drug Usage: Substance abuse history was reported as none. Educational and Vocational Histories: Maryjane reported she last worked in 2017. She stated she was working in [employer] service at the time but quit due to health issues. She reported she previously worked at a [employer] for 10 years. Family and Social Histories: Maryjane reported she lives alone in [place], [place]. She stated her daughter lives in [place], and she has seven grandchildren from her daughter. She reported her relationship with her son is strained and it has been approximately four years since she talked to him. She stated her in 1996. She reported he had a stroke in 1995 and was in a snf when he . She stated she has five living siblings and two siblings that are . She reported she is not close anymore with any of her siblings. Strengths/Weaknesses: Strengths/Resources: support from daughter and friend Liabilities/Barriers: limited support network and health problems Summary of Assessment Information/Recommendations: Maryjane is a 66-year-old female with history of depression. She stated she is worried about having to go to a snf and thinks she will if she goes there. She has a long history of depression and a hospitalization three years ago for suicidal ideation. She is currently struggling with how her life will look because of her back injury. Following current assessment, presenting problem and symptoms appear consistent with a preliminary diagnosis of F33.1 Major Depressive Disorder, Recurrent, Moderate. Current emotional symptoms are of moderate intensity. Overall, prognosis is estimated to be fair. It is recommended that Maryjane receive outpatient psychotherapy to help with her depression, grief from her brothers , and adjustment to life changes. It would be beneficial for social work to assist her with finding a therapist that either comes to the home or she can see virtually or figure out transportation for Maryjane. She would prefer a female therapist. ICD-10 Diagnostic Impressions: F33.1 Major Depressive Disorder, Recurrent, Moderate F43.21 Adjustment Disorder with Anxious Mood AMOL FORBES Nov 29, 2021 13:07
--- NOTE | 2021-11-29 15:19 | Physical Therapy Progress Note ---
Therapy Progress Note Contacted Yesi Schrader NP's office ([phone]) regarding TLSO. Yesi was not available however the surgical nurse reports that the patient may nito the TLSO brace in sitting and may doff the TLSO for bathing/showers. The TLSO should be donned post shower though. NIKKIE CHRISTIANSEN PT Nov 29, 2021 15:19
[2021-11-29 17:00] VITALS: BP 110/60
[2021-11-29] MEDS: LACTULOSE SYRUP 10GM/15ML (ENULOSE) 30ML UDC PO PRN (18:19)
[2021-11-29] MEDS: CLOTRIMAZOLE 1% VAG CR (GYNE LOTRIMIN) 45 GM PV SCH (18:57)
[2021-11-29 20:13] VITALS: BP 143/64
[2021-11-30] MEDS: APAP 300 MG/CODEINE 30 MG (TYLENOL #3) TAB PO PRN ×4 (02:25→20:32)
--- NOTE | 2021-11-30 05:47 | PM&R Progress Note ---
Subjective HPI/CC On Admission Date Seen by Provider: Nov 30, 2021 Time Seen by Provider: 12:00 Subjective/Events-last exam 11/30/21: Pt is doing well Bowels moved on 11/26 Decreased appetite Blood sugars are in the 120's Overall doing very well 11/29/21: Pt is doing well Tylenol# 3 initiated with good results Post void residual is minimal Getting into chair with minimal assist Bowels moved on 11/2611/28/21: Pt having some hypoglycemia She did stand up and pivot with therapy Psych consult will be tomorrow at 1100 Holding oral hypoglycemic and NPH insulin 11/27/2021: Pt is doing well Incision looks good Hydrocodone will be used for pain Urecholine and Pyridium are helping post void residual Bowels moved yesterday 11/26/21: Patient feels better Pain controlled Urinary retention noted Pyridium TID prn Urology consult a possibility tomorrow 11/25/21: Patient feels about the same Flat affect noted Reassured BM+ Urinary retention so ordered Urecholine 11/24/2021: Pt is doing pretty well Has chronic nausea Dressing over the incision will be changed per Dr. Ash's orders Pain is 4-5 Appears to be very depressed so will monitor that closely Review of Systems General: Fatigue, Malaise Objective Exam Vital Signs Vital Signs Date Time Temp Pulse Resp B/P (MAP) Pulse Ox O2 Delivery O2 Flow Rate FiO2 11/30/21 20:20 Room Air 11/30/21 19:44 37.3 73 20 103/58 (73) 94 Capillary Refill : General Appearance: No Apparent Distress, WD/WN, Chronically ill HEENT: PERRL/EOMI, Normal ENT Inspection, Pharynx Normal Neck: Full Range of Motion, Normal Inspection, Non Tender, Supple, Carotid Bruit Respiratory: Chest Non Tender, Lungs Clear, Normal Breath Sounds, No Accessory Muscle Use, No Respiratory Distress Cardiovascular: Regular Rate, Rhythm, No Edema, No Gallop, No JVD, No Murmur, Normal Peripheral Pulses Gastrointestinal: Normal Bowel Sounds, No Organomegaly, No Pulsatile Mass, Non Tender, Soft Back: CVA Tenderness (L), CVA Tenderness (R), Decreased Range of Motion, Muscle Spasm, Vertebral Tenderness Extremity: Normal Capillary Refill, Normal Inspection, Normal Range of Motion (Except lower extremities), Non Tender, No Calf Tenderness, No Pedal Edema Neurologic/Psychiatric: Alert, Oriented x3, drum drier operator II-XII Norm as Tested, Depressed Affect, Motor Weakness (Lower extremities severe weakness) Skin: Normal Color, Warm/Dry Lymphatic: No Adenopathy Results/Procedures Lab Patient resulted labs reviewed. FIM Transfers Therapy Code Descriptions/Definitions Functional [place] Measure: 0=Not Assessed/NA 4=Minimal Assistance 1=Total Assistance 5=Supervision or Setup 2=Maximal Assistance 6=Modified [place] 3=Moderate Assistance 7=Complete IndependenceSCALE: Activities may be completed with or without assistive devices. 2-Cavcczixws-osyaeix completes the activity by him/herself with no assistance from a helper. 5-Set-up or Clean-up Assistance-helper sets up or cleans up; patient completes activity. [place] assists only prior to or following the activity. 4-Supervision or Touching Assistance-helper provides verbal cues and/or touching/steadying and/or contact guard assistance as patient completes activity. Assistance may be provided throughout the activity or intermittently. 3-Partial/Moderate Assistance-helper does LESS THAN HALF the effort. [place] lifts, holds or supports trunk or limbs, but provides less than half the effort. 2-Substantial/Maximal Assistance-helper does MORE THAN HALF the effort. [place] lifts or holds trunk or limbs and provides more than half the effort. 2-Ctkmjcnjd-yfvrld does ALL the effort. Patient does none of the effort to complete the activity. Or, the assistance of 2 or more helpers is required for the patient to complete the activity. If activity was not attempted, code reason: 7-Patient Refused. 9-Not Applicable-not attempted and the patient did not perform the activity before the current illness, exacerbation or injury. 10-Not Attempted due to Environmental Limitations-(lack of equipment, weather restraints, etc.). 88-Not Attempted due to Medical Conditions or Safety Concerns. Roll Left to Right (QC): 4 Sit to Lying (QC): 4 Sit to Stand (QC): 3 Chair/Dwa-oa-Tdniw Xfer(QC): 3 Car Transfer (QC): 2 Gait Training Does the Patient Walk?: Yes Distance: 5' Walk 10 feet (QC): 88 Walk 50 ft with 2 Turns(QC): 88 Walk 150 ft (QC): 88 Walking 10ft/uneven surface-QC: 88 Gait Persons Needed: 1 Gait Assistive Device: FWW Wheelchair Training Does the Pt Use a Wheelchair?: Yes Distance: 100'x2 Wheel 50 ft with 2 turns (QC): 5 Wheel 150 ft (QC): 5 Type of Wheelchair: Manual Stair Training 1 Step (curb) (QC): 88 4 Steps (QC): 88 12 Steps (QC): 88 Balance Picking up an Object (QC): 88 ADL-Treatment Eating (QC): 6 Oral Hygiene (QC): 6 (seated in w/c at sink) Bathing Location: L Arm, R Arm, Chest, Abdomen, Perineal Area Shower/Bathe Self (QC): 3 (Mod A. Pt unable to wash feet and buttocks at bed level) Upper Body Dressing (QC): 2 (Max A. Pt min A required help to pull shirt down in the back at bed level but max A donning TLSO brace.) Lower Body Dressing (QC): 1 (Max A overall. Pt required assistance threading pants, but she was able to hike pants up using mortarman. Pt required assist x2 for standing balance and to hike pants.) On/Off Footwear (QC): 1 Toileting Hygiene (QC): 1 (total A. Pt unable to don/doff pants or clean periarea. Assist x2 required in stand.) Toilet Transfer (QC): 3 (mod A on/off BSC.) Assessment/Plan Assessment and Plan Assess & Plan/Chief Complaint Assessment: Severe debility following T12 laminectomy with bilateral decompression with T10- T11, T11-T12, T12-L1, L1-L2 posterior lateral fusion requiring [employer] pedicle screws and local bone graft by Dr. Ash on 11/17/2021 at [facility] Severe debility History of depression and 96-hour hold due to suicidal ideation in the past 3 years ago Diabetes Anxiety Depression Hypertension Hypothyroidism MRSA infection Urinary retention 11/25/21 now resolved Hypoglycemia requiring adjustments in meds 11/28 Plan: Pain control Supportive prison meds Fall risk Bowel regimen 11/24/21: Monitor closely Pain management Monitor BP 11/25/21: Monitor closely Pain mngt Urecholine 11/26/21: Pyridium Monitor pain 11/27/2021: Continue bladder meds Supportive care 11/28/21: Monitor closely Hold OHA and NPH 11/29/21: Monitor glucose Pain control 11/30/21: Monitor BP Monitor glucose (1) S/P spinal fusion ANA GARCIA DO Nov 30, 2021 05:47
[2021-11-30] MEDS: LEVOTHYROXINE 100 MCG (LEVOTHROID) TAB PO SCH (06:40)
[2021-11-30] MEDS: BETHANECHOL 25 MG (URECHOLINE) TAB PO SCH ×3 (06:40→16:30)
[2021-11-30 07:28] VITALS: BP 130/67
[2021-11-30] MEDS: SENNA W/DOCUSATE (SENOKOT S) TABLET PO SCH ×2 (07:59→20:31)
[2021-11-30] MEDS: buPROPion SR 150 MG (WELLBUTRIN SR) TAB PO SCH ×2 (07:59→20:31)
[2021-11-30] MEDS: PHENAZOPYRIDINE 100 MG (PYRIDIUM) TABLET PO SCH ×3 (07:59→18:27)
[2021-11-30] MEDS: FLUoxetine HCL 20 MG (PROzac) CAP PO SCH (08:00)
[2021-11-30] MEDS: DOCUSATE SODIUM 100 MG (COLACE) CAP PO SCH ×2 (08:00→20:31)
[2021-11-30] MEDS: GABAPENTIN 300 MG (NEURONTIN) CAP PO SCH ×3 (08:00→20:31)
--- NOTE | 2021-11-30 09:04 | Occupational Ther Daily Note ---
OT Current Status-Daily Note Subjective Pt laying in bed prior to OT tx. Pt still reports "not feeling too good," but she was agreeable to tx. Mental Status/Objective Patient Orientation: Person, Situation ADL-Treatment Therapy Code Descriptions/Definitions Functional [place] Measure: 0=Not Assessed/NA 4=Minimal Assistance 1=Total Assistance 5=Supervision or Setup 2=Maximal Assistance 6=Modified [place] 3=Moderate Assistance 7=Complete IndependenceSCALE: Activities may be completed with or without assistive devices. 8-Afhkeshvam-awbxrmj completes the activity by him/herself with no assistance from a helper. 5-Set-up or Clean-up Assistance-helper sets up or cleans up; patient completes activity. [place] assists only prior to or following the activity. 4-Supervision or Touching Assistance-helper provides verbal cues and/or touching/steadying and/or contact guard assistance as patient completes activity. Assistance may be provided throughout the activity or intermittently. 3-Partial/Moderate Assistance-helper does LESS THAN HALF the effort. [place] lifts, holds or supports trunk or limbs, but provides less than half the effort. 2-Substantial/Maximal Assistance-helper does MORE THAN HALF the effort. [place] lifts or holds trunk or limbs and provides more than half the effort. 0-Tgdpxmlcu-fyjwpk does ALL the effort. Patient does none of the effort to complete the activity. Or, the assistance of 2 or more helpers is required for the patient to complete the activity. If activity was not attempted, code reason: 7-Patient Refused. 9-Not Applicable-not attempted and the patient did not perform the activity before the current illness, exacerbation or injury. 10-Not Attempted due to Environmental Limitations-(lack of equipment, weather restraints, etc.). 88-Not Attempted due to Medical Conditions or Safety Concerns. Bathing Location: L Arm, R Arm, L Upper Leg, R Upper Leg, L Lower Leg (including foot), R Lower Leg (including foot), Chest, Abdomen, Perineal Area Shower/Bathe Self (QC): 3 (Min A overall. Pt unable to wash buttocks and required min v/c's to maintain back precautions during bathing. ) Upper Body Dressing (QC): 2 (Max A overall. Pt required assistance pulling shirt down in the back and required total A to don TLSO brace in seated position.) Lower Body Dressing (QC): 1 (Pt required assist x2. Pt unable to perform any part of task d/t fatigue. ) On/Off Footwear: 2 (Max A overall. requried max verbal/tactile cues for using sock aid) Toileting Hygiene (QC): 1 (Assist x2 for standing balance and donning/doffing pants. Pt able to clean periarea. ) Other Treatment Pt laying in bed prior to OT tx. Pt required Min A supine to seated EOB to supine to don TLSO. Pt transferred EOB to w/c, min A, then taken to bathroom. Pt transferred from w/c to toilet using GBS, Min A. Pt completed toileting, transferred to w/c, then to IN, min A with each transfer using GBs. She completed shower, 100% seated on SC, then donned UE dressing/brace, and footwear. Pt attempted to transfer to w/c several times with max A x2, but unable to due to fatigue. On ~6th try, pt able to get to upright position, max A x2, with cues for hand placement with transfer. Pt taken into her room, LB dressing completed for pt due to fatigue, assist x2 in stand at FWW for pant hike (1 for stand and 1 for clothing management). Pt used FWW to transfer to recliner, min A. Post tx, pt in recliner, call light in reach and all needs met. Education OT Patient Education: Correct positioning, Energy conservation, Exercise program, Instructions don/doff splint/brace, Modified ADL techniques, Progress toward Goal/Update tx plan, Purpose of tx/functional activities, Reviewed precautions, Rehab process, Safety issues, Transfer techniques, Use of adapted equipment Teaching Recipient: Patient Teaching Methods: Demonstration, Discussion Response to Teaching: Verbalize Understanding, Return Demonstration, Reinforcement Needed OT Short Term Goals Short Term Goals Time Frame: Dec 08, 2021 Toileting hygiene: 3 Shower/bathe self: 3 Upper body dressin Lower body dressin Putting on/taking off footwear: 3 OT Nursing Home Goals Implementation Project Manager Goals Time Frame: Dec 22, 2021 Eating (QC): 6 Oral Hygiene (QC): 6 Toileting Hygiene (QC): 4 Shower/Bathe Self (QC): 5 (bed level sponge bath) Upper Body Dressing (QC): 5 (bed level) Lower Body Dressing (QC): 4 On/Off Footwear (QC): 4 Additional Goals: 1-Demonstrate ADL Tasks, 2-Verbalize Understanding, 3- ImproveStrength/Yennifer 1=Demonstrate adherence to instructed precautions during ADL tasks. 2=Patient will verbalize/demonstrate understanding of assistive devices/modifications for ADL. 3=Patient will improve strength/tolerance for activity to enable patient to perform ADL's. OT Education/Plan Problem List/Assessment Assessment: Decreased Activ Tolerance, Decreased UE Strength, Impaired Funct Balance, Impaired I ADL's, Impaired Self-Care Skills Discharge Recommendations Plan/Recommendations: Continue POC Treatment Plan/Plan of Care Patient would benefit from OT for education, treatment and training to promote independence in ADL's, mobility, safety and/or upper extremity function for ADL's. Plan of Care: ADL Retraining, Cognitive Retraining, Concurrent Therapy, Functional Mobility, Group Exercise/Act as Ind Treatment Duration: Nov 24, 2021 Frequency: 5 times per week Estimated Hrs Per Day: 1 hour per day Rehab Potential: Fair Time/GCodes Start Time: 08:00 Stop Time: 09:00 Total Time Billed (hr/min): 60 Billed Treatment Time 1, ADL 4 RHYS MENEZES OT Nov 30, 2021 09:04
--- NOTE | 2021-11-30 10:07 | Physical Therapy Daily Note ---
PT Daily Note-Current Subjective Patient in recliner pre tx, agrees to PT, has 5/10 pain in low back and legs. Appearance Patient in bed post tx with nurse call, phone, tray, all needs met. Mental Status Patient Orientation: Person, Place, Situation TLSO Transfers SCALE: Activities may be completed with or without assistive devices. 9-Dwmsnwphry-erhfivu completes the activity by him/herself with no assistance from a helper. 5-Set-up or Clean-up Assistance-helper sets up or cleans up; patient completes activity. [place] assists only prior to or following the activity. 4-Supervision or Touching Assistance-helper provides verbal cues and/or touching/steadying and/or contact guard assistance as patient completes activity. Assistance may be provided throughout the activity or intermittently. 3-Partial/Moderate Assistance-helper does LESS THAN HALF the effort. [place] lifts, holds or supports trunk or limbs, but provides less than half the effort. 2-Substantial/Maximal Assistance-helper does MORE THAN HALF the effort. [place] lifts or holds trunk or limbs and provides more than half the effort. 9-Xoinhyigj-saczbh does ALL the effort. Patient does none of the effort to complete the activity. Or, the assistance of 2 or more helpers is required for the patient to complete the activity. If activity was not attempted, code reason: 7-Patient Refused. 9-Not Applicable-not attempted and the patient did not perform the activity before the current illness, exacerbation or injury. 10-Not Attempted due to Environmental Limitations-(lack of equipment, weather restraints, etc.). 88-Not Attempted due to Medical Conditions or Safety Concerns. Roll Left & Right (QC): 4 Sit to Lying (QC): 3 Sit to Stand (QC): 3 Chair/Qfw-zf-Pjwhb Xfer(QC): 3 Mod assist for sit to supine, mod assist for sit to stand, min assist for transfers (needs a little assist with guiding walker and cues for positioning). Weight Bearing Full Weight Bearing Full Weight Bearing Gait Training Distance: 5', 10', 15' Walk 10 feet (QC): 3 Gait Persons Needed: 1 Gait Assistive Device: FWW min assist for stability and to help guide walker, patient is very unsteady, shaky legs Wheelchair Training Does the Pt Use a Wheelchair?: Yes Wheel 50 ft with 2 turns (QC): 4 Type of Wheelchair: Manual 120'x2, SBA Exercises NuStep Minutes: 15 NuStep Workload: 5 (arms not used) Treatments bed mobility and transfers, ambulation, WC mobility, functional strengthening Assessment Current Status: Fair Progress Patient has very weak legs and poor endurance but did ambulate a little further today PT Short Term Goals Short Term Goals Time Frame: Dec 01, 2021 Roll Left & Right: 4 Sit to lyin (Nell) Lying to sitting on side of be: 3 (Nell) Sit to stand: 3 (modA) Chair/qou-mc-gykqc transfer: 4 (CGA) Walk 10 feet: 4 (CGA) PT Senior Microstrategy Developer Goals Senior Microstrategy Developer Goals PT Senior Microstrategy Developer Goals Time Frame: Dec 15, 2021 Roll Left & Right (QC): 6 Sit to Lying (QC): 4 (SBA) Lying-Sitting on Side/Bed(QC): 4 (SBA) Sit to Stand (QC): 3 (Nell) Chair/Bnl-yf-Aclig Xfer(QC): 4 (SBA) Toilet Transfer (QC): 4 (SBA) Car Transfer (QC): 3 (Nell) Does the Patient Walk: Yes Walk 10 feet (QC): 4 (SBA) Walk 50ft with 2 Turns (QC): 4 (SBA) Walk 150 ft (QC): 88 Walking 10ft on Uneven Surface: 4 (CGA) 1 Step (curb) (QC): 88 4 Steps (QC): 88 12 Steps (QC): 88 Picking up an Object (QC): 4 Wheel 50 feet with 2 turns (QC: 6 Wheel 150 feet: 6 PT Plan Problem List Problem List: Activity Tolerance, Functional Strength, Safety, Balance, Gait, Transfer, Bed Mobility, ROM Treatment/Plan Treatment Plan: Continue Plan of Care Treatment Plan: Bed Mobility, Education, Functional Activity Yennifer, Functional Strength, Group Therapy, Gait, Safety, Therapeutic Exercise, Transfers Treatment Duration: Dec 15, 2021 Frequency: At least 5 of 7 days/Wk (IRF) Estimated Hrs Per Day: 1.5 hours per day Patient and/or Family Agrees t: Yes Safety Risks/Education Patient Education: Gait Training, Transfer Techniques, Reviewed Precautions, Correct Positioning, W/C Management, Reviewed Don/Doff Brace, Safety Issues Teaching Recipient: Patient Teaching Methods: Demonstration, Discussion Response to Teaching: Reinforcement Needed Time/GCodes Time In: 914 Time Out: 1015 Total Billed Treatment Time: 60 Total Billed Treatment 1 visit EX 15' FA 45' NERISSA BENITEZ PT Nov 30, 2021 10:07
[2021-11-30] MEDS: polyethylene glycoL POWDER 17 GM (MIRALAX) PACK PO SCH ×2 (10:42→20:03)
--- NOTE | 2021-11-30 11:51 | Physical Therapy Daily Note ---
PT Daily Note-Current Subjective Patient in bed pre tx, agrees to PT, has no complaints of pain at rest. Appearance Patient in bed post tx with nurse call, phone, tray, all needs met. Mental Status Patient Orientation: Person, Place, Situation Transfers SCALE: Activities may be completed with or without assistive devices. 5-Inbxutrwew-gaxyaqh completes the activity by him/herself with no assistance from a helper. 5-Set-up or Clean-up Assistance-helper sets up or cleans up; patient completes activity. [place] assists only prior to or following the activity. 4-Supervision or Touching Assistance-helper provides verbal cues and/or touch ing/steadying and/or contact guard assistance as patient completes activity. Assistance may be provided throughout the activity or intermittently. 3-Partial/Moderate Assistance-helper does LESS THAN HALF the effort. [place] lifts, holds or supports trunk or limbs, but provides less than half the effort. 2-Substantial/Maximal Assistance-helper does MORE THAN HALF the effort. [place] lifts or holds trunk or limbs and provides more than half the effort. 8-Dljjowqfq-uftyml does ALL the effort. Patient does none of the effort to complete the activity. Or, the assistance of 2 or more helpers is required for the patient to complete the activity. If activity was not attempted, code reason: 7-Patient Refused. 9-Not Applicable-not attempted and the patient did not perform the activity before the current illness, exacerbation or injury. 10-Not Attempted due to Environmental Limitations-(lack of equipment, weather restraints, etc.). 88-Not Attempted due to Medical Conditions or Safety Concerns. Weight Bearing Full Weight Bearing Full Weight Bearing Exercises Supine Ex: Ankle pumps, Quad Set, Glut sets, Heel Slides (AAROM), Short Arc Quads (AAROM), Straight leg raise (AAROM), Hip abd/add (AAROM) Supine Reps: 20 Treatments LE strengthening Assessment Current Status: Fair Progress patient performs exercises slowly, needed several rest breaks PT Short Term Goals Short Term Goals Time Frame: Dec 01, 2021 Roll Left & Right: 4 Sit to lyin (Nell) Lying to sitting on side of be: 3 (Nell) Sit to stand: 3 (modA) Chair/gio-ya-xnrdb transfer: 4 (CGA) Walk 10 feet: 4 (CGA) PT Senior Care Goals Senior Care Goals PT Senior Care Goals Time Frame: Dec 15, 2021 Roll Left & Right (QC): 6 Sit to Lying (QC): 4 (SBA) Lying-Sitting on Side/Bed(QC): 4 (SBA) Sit to Stand (QC): 3 (Nell) Chair/Zba-ri-Fgwqt Xfer(QC): 4 (SBA) Toilet Transfer (QC): 4 (SBA) Car Transfer (QC): 3 (Nell) Does the Patient Walk: Yes Walk 10 feet (QC): 4 (SBA) Walk 50ft with 2 Turns (QC): 4 (SBA) Walk 150 ft (QC): 88 Walking 10ft on Uneven Surface: 4 (CGA) 1 Step (curb) (QC): 88 4 Steps (QC): 88 12 Steps (QC): 88 Picking up an Object (QC): 4 Wheel 50 feet with 2 turns (QC: 6 Wheel 150 feet: 6 PT Plan Problem List Problem List: Activity Tolerance, Functional Strength, Safety, Balance, Gait, Transfer, Bed Mobility, ROM Treatment/Plan Treatment Plan: Continue Plan of Care Treatment Plan: Bed Mobility, Education, Functional Activity Yennifer, Functional Strength, Group Therapy, Gait, Safety, Therapeutic Exercise, Transfers Treatment Duration: Dec 15, 2021 Frequency: At least 5 of 7 days/Wk (IRF) Estimated Hrs Per Day: 1.5 hours per day Patient and/or Family Agrees t: Yes Safety Risks/Education Patient Education: Correct Positioning, Safety Issues Teaching Recipient: Patient Teaching Methods: Demonstration, Discussion Response to Teaching: Reinforcement Needed Time/GCodes Time In: 1130 Time Out: 1200 Total Billed Treatment Time: 30 Total Billed Treatment 1 visit EX 30' NERISSA BENITEZ PT Nov 30, 2021 11:51
[2021-11-30] MEDS: ENOXAPARIN 40 MG/0.4 ML (LOVENOX) SYR SC SCH (13:08)
--- NOTE | 2021-11-30 13:45 | Occupational Ther Daily Note ---
OT Current Status-Daily Note Subjective Pt laying in bed prior to OT tx. Pt appears more upbeat, agreeable to tx. Mental Status/Objective Patient Orientation: Person, Situation ADL-Treatment Therapy Code Descriptions/Definitions Functional [place] Measure: 0=Not Assessed/NA 4=Minimal Assistance 1=Total Assistance 5=Supervision or Setup 2=Maximal Assistance 6=Modified [place] 3=Moderate Assistance 7=Complete IndependenceSCALE: Activities may be completed with or without assistive devices. 7-Orbgdxlmps-zecasup completes the activity by him/herself with no assistance from a helper. 5-Set-up or Clean-up Assistance-helper sets up or cleans up; patient completes activity. [place] assists only prior to or following the activity. 4-Supervision or Touching Assistance-helper provides verbal cues and/or touching/steadying and/or contact guard assistance as patient completes activity. Assistance may be provided throughout the activity or intermittently. 3-Partial/Moderate Assistance-helper does LESS THAN HALF the effort. [place] lifts, holds or supports trunk or limbs, but provides less than half the effort. 2-Substantial/Maximal Assistance-helper does MORE THAN HALF the effort. [place] lifts or holds trunk or limbs and provides more than half the effort. 7-Woytsppgj-dsdcdh does ALL the effort. Patient does none of the effort to complete the activity. Or, the assistance of 2 or more helpers is required for the patient to complete the activity. If activity was not attempted, code reason: 7-Patient Refused. 9-Not Applicable-not attempted and the patient did not perform the activity before the current illness, exacerbation or injury. 10-Not Attempted due to Environmental Limitations-(lack of equipment, weather restraints, etc.). 88-Not Attempted due to Medical Conditions or Safety Concerns. Upper Body Dressing (QC): 3 (Min to Mod A. Pt required v/c's for sequencing to don/doff TLSO brace) Toileting Hygiene (QC): 1 (assist x2 for standing balance and hiking pants. Pt able to clean periarea.) Other Treatment Pt laying in bed prior to tx. Pt log rolled from supine to seated EOB, min A. Pt was educated on the importance of donning/doffing TLSO brace herself to increase IND in ADLs. OT demonstrated how to don/doff brace when seated EOB. Pt practiced donning/doffing the brace twice, increased from mod verbal/tactile cues on the first trial to min verbal/tactile on the second trial. As pt fatigued, sitting balance EOB went from SBA to max A in order to maintain upright position. Pt requested to use the BSC rather than the toilet d/t fatigue. Pt completed SPT with FWW to [place] [facility] Min A. Pt attempted to aid in hiking up pants after using the BSC, but started to lose her balance, requiring mod A for balance. OT completed pant hike, then transferred to EOB, cues for UE placement during transfer. Pt required min A with legs to return seated EOB to supine. Post tx, pt left in bed with call light in reach and all needs met. Education OT Patient Education: Correct positioning, Energy conservation, Exercise program, Instructions don/doff splint/brace, Modified ADL techniques, Progress toward Goal/Update tx plan, Purpose of tx/functional activities, Reviewed precautions, Rehab process, Safety issues, Transfer techniques Teaching Recipient: Patient Teaching Methods: Demonstration, Discussion Response to Teaching: Verbalize Understanding, Return Demonstration, Reinforcement Needed OT Short Term Goals Short Term Goals Time Frame: Dec 08, 2021 Toileting hygiene: 3 Shower/bathe self: 3 Upper body dressin Lower body dressin Putting on/taking off footwear: 3 OT Assisted Goals Assisted Goals Time Frame: Dec 22, 2021 Eating (QC): 6 Oral Hygiene (QC): 6 Toileting Hygiene (QC): 4 Shower/Bathe Self (QC): 5 (bed level sponge bath) Upper Body Dressing (QC): 5 (bed level) Lower Body Dressing (QC): 4 On/Off Footwear (QC): 4 Additional Goals: 1-Demonstrate ADL Tasks, 2-Verbalize Understanding, 3- ImproveStrength/Yennifer 1=Demonstrate adherence to instructed precautions during ADL tasks. 2=Patient will verbalize/demonstrate understanding of assistive devices/modifications for ADL. 3=Patient will improve strength/tolerance for activity to enable patient to perform ADL's. OT Education/Plan Problem List/Assessment Assessment: Decreased Activ Tolerance, Decreased UE Strength, Impaired Bed Mobility, Impaired Funct Balance, Impaired I ADL's, Impaired Self-Care Skills, Restricted Funct UE ROM Discharge Recommendations Plan/Recommendations: Continue POC Treatment Plan/Plan of Care Patient would benefit from OT for education, treatment and training to promote independence in ADL's, mobility, safety and/or upper extremity function for ADL's. Plan of Care: ADL Retraining, Cognitive Retraining, Concurrent Therapy, Functi onal Mobility, Group Exercise/Act as Ind Treatment Duration: Nov 24, 2021 Frequency: 5 times per week Estimated Hrs Per Day: 1 hour per day Rehab Potential: Fair Time/GCodes Start Time: 13:00 Stop Time: 13:35 Total Time Billed (hr/min): 35 Billed Treatment Time 1, ADL 2 (35') RHYS MENEZES OT Nov 30, 2021 13:45
[2021-11-30] MEDS ORDERED: APAP 300 MG/CODEINE 30 MG (TYLENOL #3) TAB ONE (13:46)
[2021-11-30] MEDS: LACTULOSE SYRUP 10GM/15ML (ENULOSE) 30ML UDC PO PRN (15:23)
[2021-11-30 17:01] VITALS: BP 127/62
[2021-11-30 19:44] VITALS: BP 103/58
--- NOTE | 2021-12-01 06:20 | PM&R Progress Note ---
Subjective HPI/CC On Admission Date Seen by Provider: Dec 01, 2021 Time Seen by Provider: 12:00 Subjective/Events-last exam 12/01/2021: Pt doing well Discharge on Saturday Pain is well controlled Bowels are moving No more Hypoglycemia Appetite is poor 11/30/21: Pt is doing well Bowels moved on 11/26 Decreased appetite Blood sugars are in the 120's Overall doing very well 11/29/21: Pt is doing well Tylenol# 3 initiated with good results Post void residual is minimal Getting into chair with minimal assist Bowels moved on 11/2611/28/21: Pt having some hypoglycemia She did stand up and pivot with therapy Psych consult will be tomorrow at 1100 Holding oral hypoglycemic and NPH insulin 11/27/2021: Pt is doing well Incision looks good Hydrocodone will be used for pain Urecholine and Pyridium are helping post void residual Bowels moved yesterday 11/26/21: Patient feels better Pain controlled Urinary retention noted Pyridium TID prn Urology consult a possibility tomorrow 11/25/21: Patient feels about the same Flat affect noted Reassured BM+ Urinary retention so ordered Urecholine 11/24/2021: Pt is doing pretty well Has chronic nausea Dressing over the incision will be changed per Dr. Ash's orders Pain is 4-5 Appears to be very depressed so will monitor that closely Review of Systems General: Fatigue, Malaise Objective Exam Vital Signs Vital Signs Date Time Temp Pulse Resp B/P (MAP) Pulse Ox O2 Delivery O2 Flow Rate FiO2 12/01/21 17:30 78 137/69 (91) 12/01/21 09:10 Room Air 12/01/21 07:51 36.8 16 92 Capillary Refill : General Appearance: No Apparent Distress, WD/WN, Chronically ill HEENT: PERRL/EOMI, Normal ENT Inspection, Pharynx Normal Neck: Full Range of Motion, Normal Inspection, Non Tender, Supple, Carotid Bruit Respiratory: Chest Non Tender, Lungs Clear, Normal Breath Sounds, No Accessory Muscle Use, No Respiratory Distress Cardiovascular: Regular Rate, Rhythm, No Edema, No Gallop, No JVD, No Murmur, Normal Peripheral Pulses Gastrointestinal: Normal Bowel Sounds, No Organomegaly, No Pulsatile Mass, Non Tender, Soft Back: CVA Tenderness (L), CVA Tenderness (R), Decreased Range of Motion, Muscle Spasm, Vertebral Tenderness Extremity: Normal Capillary Refill, Normal Inspection, Normal Range of Motion (Except lower extremities), Non Tender, No Calf Tenderness, No Pedal Edema Neurologic/Psychiatric: Alert, Oriented x3, clay washer II-XII Norm as Tested, Depressed Affect, Motor Weakness (Lower extremities severe weakness) Skin: Normal Color, Warm/Dry Lymphatic: No Adenopathy Results/Procedures Lab Patient resulted labs reviewed. FIM Transfers Therapy Code Descriptions/Definitions Functional [place] Measure: 0=Not Assessed/NA 4=Minimal Assistance 1=Total Assistance 5=Supervision or Setup 2=Maximal Assistance 6=Modified [place] 3=Moderate Assistance 7=Complete IndependenceSCALE: Activities may be completed with or without assistive devices. 4-Rzlfqyglce-jujdesr completes the activity by him/herself with no assistance from a helper. 5-Set-up or Clean-up Assistance-helper sets up or cleans up; patient completes activity. [place] assists only prior to or following the activity. 4-Supervision or Touching Assistance-helper provides verbal cues and/or touching/steadying and/or contact guard assistance as patient completes activity. Assistance may be provided throughout the activity or intermittently. 3-Partial/Moderate Assistance-helper does LESS THAN HALF the effort. [place] lifts, holds or supports trunk or limbs, but provides less than half the effort. 2-Substantial/Maximal Assistance-helper does MORE THAN HALF the effort. [place] lifts or holds trunk or limbs and provides more than half the effort. 1-Wigoltbqs-fbnzgj does ALL the effort. Patient does none of the effort to complete the activity. Or, the assistance of 2 or more helpers is required for the patient to complete the activity. If activity was not attempted, code reason: 7-Patient Refused. 9-Not Applicable-not attempted and the patient did not perform the activity before the current illness, exacerbation or injury. 10-Not Attempted due to Environmental Limitations-(lack of equipment, weather restraints, etc.). 88-Not Attempted due to Medical Conditions or Safety Concerns. Roll Left to Right (QC): 4 Sit to Lying (QC): 3 Sit to Stand (QC): 3 Chair/Glz-wo-Elpmv Xfer(QC): 3 Car Transfer (QC): 2 Gait Training Does the Patient Walk?: Yes Distance: 5', 10', 15' Walk 10 feet (QC): 3 Walk 50 ft with 2 Turns(QC): 88 Walk 150 ft (QC): 88 Walking 10ft/uneven surface-QC: 88 Gait Persons Needed: 1 Gait Assistive Device: FWW Wheelchair Training Does the Pt Use a Wheelchair?: Yes Distance: 100'x2 Wheel 50 ft with 2 turns (QC): 4 Wheel 150 ft (QC): 5 Type of Wheelchair: Manual Stair Training 1 Step (curb) (QC): 88 4 Steps (QC): 88 12 Steps (QC): 88 Balance Picking up an Object (QC): 88 ADL-Treatment Eating (QC): 6 Oral Hygiene (QC): 6 (seated in w/c at sink) Bathing Location: L Arm, R Arm, L Upper Leg, R Upper Leg, L Lower Leg (including foot), R Lower Leg (including foot), Chest, Abdomen, Perineal Area Shower/Bathe Self (QC): 3 (Min A overall. Pt unable to wash buttocks and required min v/c's to maintain back precautions during bathing. ) Upper Body Dressing (QC): 3 (Min to Mod A. Pt required v/c's for sequencing to don/doff TLSO brace) Lower Body Dressing (QC): 1 (Pt required assist x2. Pt unable to perform any part of task d/t fatigue. ) On/Off Footwear (QC): 2 (Max A overall. requried max verbal/tactile cues for using sock aid) Toileting Hygiene (QC): 1 (assist x2 for standing balance and hiking pants. Pt able to clean periarea.) Toilet Transfer (QC): 3 (mod A on/off BSC.) Assessment/Plan Assessment and Plan Assess & Plan/Chief Complaint Assessment: Severe debility following T12 laminectomy with bilateral decompression with T10- T11, T11-T12, T12-L1, L1-L2 posterior lateral fusion requiring [employer] pedicle screws and local bone graft by Dr. Ash on 11/17/2021 at [facility] Severe debility History of depression and 96-hour hold due to suicidal ideation in the past 3 years ago Diabetes Anxiety Depression Hypertension Hypothyroidism MRSA infection Urinary retention 11/25/21 now resolved Hypoglycemia requiring adjustments in meds 11/28 Plan: Pain control Supportive snf meds Fall risk Bowel regimen 11/24/21: Monitor closely Pain management Monitor BP 11/25/21: Monitor closely Pain mngt Urecholine 11/26/21: Pyridium Monitor pain 11/27/2021: Continue bladder meds Supportive care 11/28/21: Monitor closely Hold OHA and NPH 11/29/21: Monitor glucose Pain control 11/30/21: Monitor BP Monitor glucose 12/01/21: Monitor glucose Supportive care Add back insulin (1) S/P spinal fusion ANA GARCIA DO Dec 01, 2021 06:20
[2021-12-01] MEDS: BETHANECHOL 25 MG (URECHOLINE) TAB PO SCH ×3 (06:49→18:18)
[2021-12-01] MEDS: LEVOTHYROXINE 100 MCG (LEVOTHROID) TAB PO SCH (06:49)
[2021-12-01] MEDS: DOCUSATE SODIUM 100 MG (COLACE) CAP PO SCH ×2 (07:29→20:56)
[2021-12-01] MEDS: FLUoxetine HCL 20 MG (PROzac) CAP PO SCH (07:29)
[2021-12-01] MEDS: SENNA W/DOCUSATE (SENOKOT S) TABLET PO SCH ×2 (07:29→20:56)
[2021-12-01] MEDS: buPROPion SR 150 MG (WELLBUTRIN SR) TAB PO SCH ×2 (07:30→20:56)
[2021-12-01] MEDS: polyethylene glycoL POWDER 17 GM (MIRALAX) PACK PO SCH ×2 (07:30→20:57)
[2021-12-01] MEDS: APAP 300 MG/CODEINE 30 MG (TYLENOL #3) TAB PO PRN ×3 (07:30→21:53)
[2021-12-01] MEDS: PHENAZOPYRIDINE 100 MG (PYRIDIUM) TABLET PO SCH ×3 (07:30→18:19)
[2021-12-01] MEDS: GABAPENTIN 300 MG (NEURONTIN) CAP PO SCH ×3 (07:30→20:56)
[2021-12-01 07:51] VITALS: BP 112/73
--- NOTE | 2021-12-01 08:49 | Occupational Ther Daily Note ---
OT Current Status-Daily Note Subjective Pt laying supine in bed prior to tx. Pt says she "doesn't feel too good," but she is agreeable to tx. Pt also mentioned that she doesn't think she will be able to take care of herself well enough when she goes home. Mental Status/Objective Patient Orientation: Person, Place, Situation ADL-Treatment Therapy Code Descriptions/Definitions Functional [place] Measure: 0=Not Assessed/NA 4=Minimal Assistance 1=Total Assistance 5=Supervision or Setup 2=Maximal Assistance 6=Modified [place] 3=Moderate Assistance 7=Complete IndependenceSCALE: Activities may be completed with or without assistive devices. 0-Oektufjwid-wzxbpxl completes the activity by him/herself with no assistance from a helper. 5-Set-up or Clean-up Assistance-helper sets up or cleans up; patient completes activity. [place] assists only prior to or following the activity. 4-Supervision or Touching Assistance-helper provides verbal cues and/or touch ing/steadying and/or contact guard assistance as patient completes activity. Assistance may be provided throughout the activity or intermittently. 3-Partial/Moderate Assistance-helper does LESS THAN HALF the effort. [place] lifts, holds or supports trunk or limbs, but provides less than half the effort. 2-Substantial/Maximal Assistance-helper does MORE THAN HALF the effort. [place] lifts or holds trunk or limbs and provides more than half the effort. 0-Zcdqnvwmu-kxhetq does ALL the effort. Patient does none of the effort to complete the activity. Or, the assistance of 2 or more helpers is required for the patient to complete the activity. If activity was not attempted, code reason: 7-Patient Refused. 9-Not Applicable-not attempted and the patient did not perform the activity before the current illness, exacerbation or injury. 10-Not Attempted due to Environmental Limitations-(lack of equipment, weather restraints, etc.). 88-Not Attempted due to Medical Conditions or Safety Concerns. Oral Hygiene (QC): 6 (seated at sink) Upper Body Dressing (QC): 3 (Min A. Pt required assistance to clip top hook of TLSO brace, mod A sitting balance. Required v/c's with sequencing when donning brace.) Lower Body Dressing (QC): 3 (Mod A. Pt required tactile and verbal cues to thread legs through brief. Pt unable to hike pants up when standing d/t decreased balance) On/Off Footwear: 4 (SBA for balance. Min v/c's for sequencing when using sock aid) Other Treatment Pt laying in bed prior to OT tx. Pt log rolled supine to seated EOB, Min A with torso. Pt completed dressing and donned TLSO brace seated EOB, SBA--Mod A for balance. Pt reeducated on AE (sock aid and plant associate) to assist with dressing. Pt used FWW to transfer to w/c, min A, pushed to bathroom to independently complete oral hygiene and grooming tasks. Pt pushed to therapy gym to participate in functional activities focused on BUE strength and activity tolerance. Pt stood at table and reached across midline to place rings on stand, 8 rings with R hand and 8 rings with left hand, RB needed between hands. Pt completed nuts and bolts activity (all completed except top row d/t LUE ROM deficits) and peg board acti vity with 1lb wrist weight on R wrist (completed ~5 designs). All activities incorporated BUE and crossing midline. Pt pushed back to room to use BSC. Start of OT/PT cotreat. PT/OT cotreat due to skill of 2 clinicians required which a restorative rehab aide could not perform d/t complex medical needs of pt, decreased strength, activity tolerance, mobility/transfers. OT focused on ADLs, UE plac ement, cues for safety and sequencing, and PT focused on LE placement, gross overall movement, transfers, and mobility. Pt completed functional activity with graded clothespins to address dynamic standing to hike pants up for LBD, completed two rounds with RB in between, used BUE to retrieve 5 pins each round. Pt required Mod A for sit<>stand and CGA for standing balance during activity. End of cotreat. Pt left with PT. Education OT Patient Education: Correct positioning, Energy conservation, Exercise program, Instructions don/doff splint/brace, Modified ADL techniques, Progress toward Goal/Update tx plan, Purpose of tx/functional activities, Reviewed precautions, Rehab process, Safety issues, Transfer techniques, Use of adapted equipment, W/C management Teaching Recipient: Patient Teaching Methods: Demonstration, Discussion Response to Teaching: Verbalize Understanding, Return Demonstration, Reinforcement Needed OT Short Term Goals Short Term Goals Time Frame: Dec 08, 2021 Toileting hygiene: 3 Shower/bathe self: 3 Upper body dressin Lower body dressin Putting on/taking off footwear: 3 OT Fpc Goals Content Curator Goals Time Frame: Dec 22, 2021 Eating (QC): 6 Oral Hygiene (QC): 6 Toileting Hygiene (QC): 4 Shower/Bathe Self (QC): 5 (bed level sponge bath) Upper Body Dressing (QC): 5 (bed level) Lower Body Dressing (QC): 4 On/Off Footwear (QC): 4 Additional Goals: 1-Demonstrate ADL Tasks, 2-Verbalize Understanding, 3- ImproveStrength/Yennifer 1=Demonstrate adherence to instructed precautions during ADL tasks. 2=Patient will verbalize/demonstrate understanding of assistive devices/modifications for ADL. 3=Patient will improve strength/tolerance for activity to enable patient to perform ADL's. OT Education/Plan Problem List/Assessment Assessment: Decreased Activ Tolerance, Decreased UE Strength, Impaired Bed Mobility, Impaired Funct Balance, Impaired I ADL's, Impaired Self-Care Skills, Restricted Funct UE ROM Discharge Recommendations Plan/Recommendations: Continue POC Equpiment Recommendations-D/C: Melt House Centrifugal Operator, Sock Aide Treatment Plan/Plan of Care Patient would benefit from OT for education, treatment and training to promote independence in ADL's, mobility, safety and/or upper extremity function for ADL's. Plan of Care: ADL Retraining, Cognitive Retraining, Concurrent Therapy, Funct ional Mobility, Group Exercise/Act as Ind Treatment Duration: Nov 24, 2021 Frequency: 5 times per week Estimated Hrs Per Day: 1 hour per day Rehab Potential: Fair Time/GCodes Start Time: 08:00 Stop Time: 09:30 Total Time Billed (hr/min): 90 Billed Treatment Time 7232-5964: OT tx; 4224-8500: Cotreat 1, ADL 3 (45'), FA 3 (45') RHYS MENEEZS OT Dec 01, 2021 08:49
--- NOTE | 2021-12-01 11:55 | Physical Therapy Daily Note ---
PT Daily Note-Current Subjective [id number] Upon arrival, Pt was with OT. PT cotreated with OT for 15 min. [id number] Upon arrival, pt was laying in bed. Pt reports that she is having spams in back, pts pain was rated 3/10. After PT pt reports pain 4-5/10. Pt requests for no ambulation due to fatigue. Pt agrees to PT. Pain Comment: Pt reports 3/10 pain with PT. Mental Status Patient Orientation: Person, Situation Transfers SCALE: Activities may be completed with or without assistive devices. 3-Unsoacctqm-ycvnfwt completes the activity by him/herself with no assistance from a helper. 5-Set-up or Clean-up Assistance-helper sets up or cleans up; patient completes activity. [place] assists only prior to or following the activity. 4-Supervision or Touching Assistance-helper provides verbal cues and/or touching/steadying and/or contact guard assistance as patient completes activity. Assistance may be provided throughout the activity or intermittently. 3-Partial/Moderate Assistance-helper does LESS THAN HALF the effort. [place] lifts, holds or supports trunk or limbs, but provides less than half the effort. 2-Substantial/Maximal Assistance-helper does MORE THAN HALF the effort. [place] lifts or holds trunk or limbs and provides more than half the effort. 8-Fyzzfcydx-leeeha does ALL the effort. Patient does none of the effort to complete the activity. Or, the assistance of 2 or more helpers is required for the patient to complete the activity. If activity was not attempted, code reason: 7-Patient Refused. 9-Not Applicable-not attempted and the patient did not perform the activity before the current illness, exacerbation or injury. 10-Not Attempted due to Environmental Limitations-(lack of equipment, weather restraints, etc.). 88-Not Attempted due to Medical Conditions or Safety Concerns. Sit to Lying (QC): 3 Sit to Stand (QC): 3 Toilet Transfer (QC): 3 Pt transferred from WC to bed with assistance x2, due to fatigue from OT and PT. Weight Bearing Full Weight Bearing Full Weight Bearing Gait Training Does the Patient Walk?: No and Walking Goal IS indicated Gait Assistive Device: FWW Pt requested for no ambulation due to fatigue from previously working with OT. Exercises Supine Ex: Ankle pumps, Quad Set, Glut sets, Heel Slides, Short Arc Quads, Straight leg raise, Hip abd/add Supine Reps: 15 ([id number] 15x, 7725-4208 20x) Seated Therapy Exercises: Ankle pumps, Long arc quads, Hip flexion, Hamstring Curls, Hip abd/add Seated Reps: 15 Treatments [id number] Pt performed and completed all Exs listed above. Pt transferred from commode to with assistance from OT, and from WC to bed with assistance x2. Once PT was concluded, pt was in bed, with call light and tray in reach and all needs met. [id number] Pt performs all supine Exs as listed above. Once PT was concluded pt was in bed, with call light and tray in reach and all needs met. Assessment Current Status: Good Progress Pt required AAROM with supine Exs. Pt would benefit from continued PT to improve on strength, balance and activity tolerance. PT Short Term Goals Short Term Goals Time Frame: Dec 01, 2021 Roll Left & Right: 4 Sit to lyin (Nell) Lying to sitting on side of be: 3 (Nell) Sit to stand: 3 (modA) Chair/qcc-nj-olzwe transfer: 4 (CGA) Walk 10 feet: 4 (CGA) PT Recruitment Consultant Goals Recruitment Consultant Goals PT Fpc Goals Time Frame: Dec 15, 2021 Roll Left & Right (QC): 6 Sit to Lying (QC): 4 (SBA) Lying-Sitting on Side/Bed(QC): 4 (SBA) Sit to Stand (QC): 3 (Nell) Chair/Glc-dy-Mjyep Xfer(QC): 4 (SBA) Toilet Transfer (QC): 4 (SBA) Car Transfer (QC): 3 (Nell) Does the Patient Walk: Yes Walk 10 feet (QC): 4 (SBA) Walk 50ft with 2 Turns (QC): 4 (SBA) Walk 150 ft (QC): 88 Walking 10ft on Uneven Surface: 4 (CGA) 1 Step (curb) (QC): 88 4 Steps (QC): 88 12 Steps (QC): 88 Picking up an Object (QC): 4 Wheel 50 feet with 2 turns (QC: 6 Wheel 150 feet: 6 PT Plan Problem List Problem List: Activity Tolerance, Functional Strength, Balance Treatment/Plan Treatment Plan: Continue Plan of Care Treatment Plan: Bed Mobility, Education, Functional Activity Yennifer, Functional Strength, Group Therapy, Gait, Safety, Therapeutic Exercise, Transfers Treatment Duration: Dec 15, 2021 Frequency: At least 5 of 7 days/Wk (IRF) Estimated Hrs Per Day: 1.5 hours per day Patient and/or Family Agrees t: Yes Safety Risks/Education Patient Education: Transfer Techniques Teaching Recipient: Patient Teaching Methods: Discussion Response to Teaching: Verbalize Understanding Time/GCodes Time In: 915 Time Out: 1015 Total Billed Treatment Time: 60 Total Billed Treatment [id number] 1, 2 (30) Ex, FA 2 (30) [id number] 1, 2 (30) EX CHARANJIT DESHPANDE PTA Dec 01, 2021 11:55
[2021-12-01] MEDS: ENOXAPARIN 40 MG/0.4 ML (LOVENOX) SYR SC SCH (14:32)
[2021-12-01 17:30] VITALS: BP 137/69
[2021-12-01 20:30] VITALS: BP 123/70
[2021-12-02] MEDS: APAP 300 MG/CODEINE 30 MG (TYLENOL #3) TAB PO PRN ×3 (05:26→21:18)
--- NOTE | 2021-12-02 06:11 | PM&R Progress Note ---
Subjective HPI/CC On Admission Date Seen by Provider: Dec 02, 2021 Time Seen by Provider: 11:00 Subjective/Events-last exam 12/02/2021: Patient doing about the same Nervous about going home Very frail emotionally causing issues with confidence Pain is improved No falls 12/01/2021: Pt doing well Discharge on Saturday Pain is well controlled Bowels are moving No more Hypoglycemia Appetite is poor 11/30/21: Pt is doing well Bowels moved on 11/26 Decreased appetite Blood sugars are in the 120's Overall doing very well 11/29/21: Pt is doing well Tylenol# 3 initiated with good results Post void residual is minimal Getting into chair with minimal assist Bowels moved on 11/2611/28/21: Pt having some hypoglycemia She did stand up and pivot with therapy Psych consult will be tomorrow at 1100 Holding oral hypoglycemic and NPH insulin 11/27/2021: Pt is doing well Incision looks good Hydrocodone will be used for pain Urecholine and Pyridium are helping post void residual Bowels moved yesterday 11/26/21: Patient feels better Pain controlled Urinary retention noted Pyridium TID prn Urology consult a possibility tomorrow 11/25/21: Patient feels about the same Flat affect noted Reassured BM+ Urinary retention so ordered Urecholine 11/24/2021: Pt is doing pretty well Has chronic nausea Dressing over the incision will be changed per Dr. Ash's orders Pain is 4-5 Appears to be very depressed so will monitor that closely Review of Systems General: Fatigue Musculoskeletal: back pain Objective Exam Vital Signs Vital Signs Date Time Temp Pulse Resp B/P (MAP) Pulse Ox O2 Delivery O2 Flow Rate FiO2 12/02/21 20:25 36.8 76 16 130/59 (82) 93 Room Air Capillary Refill : General Appearance: No Apparent Distress, WD/WN, Chronically ill HEENT: PERRL/EOMI, Normal ENT Inspection, Pharynx Normal Neck: Full Range of Motion, Normal Inspection, Non Tender, Supple, Carotid Bruit Respiratory: Chest Non Tender, Lungs Clear, Normal Breath Sounds, No Accessory Muscle Use, No Respiratory Distress Cardiovascular: Regular Rate, Rhythm, No Edema, No Gallop, No JVD, No Murmur, Normal Peripheral Pulses Gastrointestinal: Normal Bowel Sounds, No Organomegaly, No Pulsatile Mass, Non Tender, Soft Back: CVA Tenderness (L), CVA Tenderness (R), Decreased Range of Motion, Muscle Spasm, Vertebral Tenderness Extremity: Normal Capillary Refill, Normal Inspection, Normal Range of Motion (Except lower extremities), Non Tender, No Calf Tenderness, No Pedal Edema Neurologic/Psychiatric: Alert, Oriented x3, service cashier II-XII Norm as Tested, Depressed Affect, Motor Weakness (Lower extremities severe weakness) Skin: Normal Color, Warm/Dry Lymphatic: No Adenopathy Results/Procedures Lab Patient resulted labs reviewed. FIM Transfers Therapy Code Descriptions/Definitions Functional [place] Measure: 0=Not Assessed/NA 4=Minimal Assistance 1=Total Assistance 5=Supervision or Setup 2=Maximal Assistance 6=Modified [place] 3=Moderate Assistance 7=Complete IndependenceSCALE: Activities may be completed with or without assistive devices. 9-Qsjwtkynta-wnnezkk completes the activity by him/herself with no assistance from a helper. 5-Set-up or Clean-up Assistance-helper sets up or cleans up; patient completes activity. [place] assists only prior to or following the activity. 4-Supervision or Touching Assistance-helper provides verbal cues and/or touching/steadying and/or contact guard assistance as patient completes activity. Assistance may be provided throughout the activity or intermittently. 3-Partial/Moderate Assistance-helper does LESS THAN HALF the effort. [place] lifts, holds or supports trunk or limbs, but provides less than half the effort. 2-Substantial/Maximal Assistance-helper does MORE THAN HALF the effort. [place] lifts or holds trunk or limbs and provides more than half the effort. 8-Prgrkqyty-tyhdqc does ALL the effort. Patient does none of the effort to complete the activity. Or, the assistance of 2 or more helpers is required for the patient to complete the activity. If activity was not attempted, code reason: 7-Patient Refused. 9-Not Applicable-not attempted and the patient did not perform the activity before the current illness, exacerbation or injury. 10-Not Attempted due to Environmental Limitations-(lack of equipment, weather restraints, etc.). 88-Not Attempted due to Medical Conditions or Safety Concerns. Roll Left to Right (QC): 4 Sit to Lying (QC): 3 Sit to Stand (QC): 3 Chair/Ozv-ic-Mnemw Xfer(QC): 3 Car Transfer (QC): 2 Gait Training Does the Patient Walk?: No and Walking Goal IS indicated Distance: 5', 10', 15' Walk 10 feet (QC): 3 Walk 50 ft with 2 Turns(QC): 88 Walk 150 ft (QC): 88 Walking 10ft/uneven surface-QC: 88 Gait Persons Needed: 1 Gait Assistive Device: FWW Wheelchair Training Does the Pt Use a Wheelchair?: Yes Distance: 100'x2 Wheel 50 ft with 2 turns (QC): 4 Wheel 150 ft (QC): 5 Type of Wheelchair: Manual Stair Training 1 Step (curb) (QC): 88 4 Steps (QC): 88 12 Steps (QC): 88 Balance Picking up an Object (QC): 88 ADL-Treatment Eating (QC): 6 Oral Hygiene (QC): 6 (seated at sink) Bathing Location: L Arm, R Arm, L Upper Leg, R Upper Leg, L Lower Leg (including foot), R Lower Leg (including foot), Chest, Abdomen, Perineal Area Shower/Bathe Self (QC): 3 (Min A overall. Pt unable to wash buttocks and requ ired min v/c's to maintain back precautions during bathing. ) Upper Body Dressing (QC): 3 (Min A. Pt required assistance to clip top hook of TLSO brace, mod A sitting balance. Required v/c's with sequencing when donning brace.) Lower Body Dressing (QC): 3 (Mod A. Pt required tactile and verbal cues to thread legs through brief. Pt unable to hike pants up when standing d/t decreased balance) On/Off Footwear (QC): 4 (SBA for balance. Min v/c's for sequencing when using sock aid) Toileting Hygiene (QC): 1 (assist x2 for standing balance and hiking pants. Pt able to clean periarea.) Toilet Transfer (QC): 3 (mod A on/off BSC.) Assessment/Plan Assessment and Plan Assess & Plan/Chief Complaint Assessment: Severe debility following T12 laminectomy with bilateral decompression with T10- T11, T11-T12, T12-L1, L1-L2 posterior lateral fusion requiring Medtronic pedicle screws and local bone graft by Dr. Ash on 11/17/2021 at [facility] Severe debility History of depression and 96-hour hold due to suicidal ideation in the past 3 years ago Diabetes Anxiety Depression Hypertension Hypothyroidism MRSA infection Urinary retention 11/25/21 now resolved Hypoglycemia requiring adjustments in meds 11/28 Plan: Pain control Supportive assisted meds Fall risk Bowel regimen 11/24/21: Monitor closely Pain management Monitor BP 11/25/21: Monitor closely Pain mngt Urecholine 11/26/21: Pyridium Monitor pain 11/27/2021: Continue bladder meds Supportive care 11/28/21: Monitor closely Hold OHA and NPH 11/29/21: Monitor glucose Pain control 11/30/21: Monitor BP Monitor glucose 12/01/21: Monitor glucose Supportive care Add back insulin 12/02/2021: Continue aggressive rehab Monitor labile sugars (1) S/P spinal fusion ANA GARCIA DO Dec 02, 2021 06:11
[2021-12-02] MEDS: LEVOTHYROXINE 100 MCG (LEVOTHROID) TAB PO SCH (06:57)
[2021-12-02] MEDS: BETHANECHOL 25 MG (URECHOLINE) TAB PO SCH ×3 (06:57→16:26)
[2021-12-02 07:31] VITALS: BP 139/65
[2021-12-02] MEDS: PHENAZOPYRIDINE 100 MG (PYRIDIUM) TABLET PO SCH ×3 (08:50→18:11)
[2021-12-02] MEDS: GABAPENTIN 300 MG (NEURONTIN) CAP PO SCH ×3 (08:50→21:17)
[2021-12-02] MEDS: FLUoxetine HCL 20 MG (PROzac) CAP PO SCH (08:50)
[2021-12-02] MEDS: buPROPion SR 150 MG (WELLBUTRIN SR) TAB PO SCH ×2 (08:50→21:17)
[2021-12-02] MEDS: SENNA W/DOCUSATE (SENOKOT S) TABLET PO SCH ×2 (08:52→21:18)
[2021-12-02] MEDS: polyethylene glycoL POWDER 17 GM (MIRALAX) PACK PO SCH ×2 (08:52→21:18)
[2021-12-02] MEDS: DOCUSATE SODIUM 100 MG (COLACE) CAP PO SCH ×2 (08:52→21:18)
--- NOTE | 2021-12-02 08:53 | Physical Therapy Daily Note ---
PT Daily Note-Current Subjective Pt. in bed, rates pain in thorax and mid low back at 5/10. Pt states she declined brkfst b/c of nausea but also declined nausea meds, agrees to Rx. Pt. states she does not feel confident about walking and fears she wont be able to stand. Agrees to SPT to recliner Pain Numeric Pain Scale: 5-Moderate Pain Location: Medial Location Body Site: Back Pain Description: Ache Mental Status Patient Orientation: Normal For Age Attachments: Other-See Comments (TLSO) Transfers SCALE: Activities may be completed with or without assistive devices. 9-Fxxzzirayo-ohdglfk completes the activity by him/herself with no assistance from a helper. 5-Set-up or Clean-up Assistance-helper sets up or cleans up; patient completes activity. [place] assists only prior to or following the activity. 4-Supervision or Touching Assistance-helper provides verbal cues and/or touching/steadying and/or contact guard assistance as patient completes activity. Assistance may be provided throughout the activity or intermittently. 3-Partial/Moderate Assistance-helper does LESS THAN HALF the effort. [place] lifts, holds or supports trunk or limbs, but provides less than half the effort. 2-Substantial/Maximal Assistance-helper does MORE THAN HALF the effort. [place] lifts or holds trunk or limbs and provides more than half the effort. 9-Ionabimow-whsxqz does ALL the effort. Patient does none of the effort to complete the activity. Or, the assistance of 2 or more helpers is required for the patient to complete the activity. If activity was not attempted, code reason: 7-Patient Refused. 9-Not Applicable-not attempted and the patient did not perform the activity before the current illness, exacerbation or injury. 10-Not Attempted due to Environmental Limitations-(lack of equipment, weather restraints, etc.). 88-Not Attempted due to Medical Conditions or Safety Concerns. sup to sit in flat bed rolling log roll style with good technique. sit to stand mod asst 1, SPT to chair min asst. Needed VCs for all for efficient TRF Weight Bearing Full Weight Bearing Full Weight Bearing Gait Training Gait Assistive Device: FWW 5-6 feet for SPT bed to recliner min to mod asst using FWW Exercises Seated Therapy Exercises: Ankle pumps, Sit to stand, Long arc quads, Hip abd/add Seated Reps: 12 Treatments TRFs, therex, education regarding donning TLSO Assessment Current Status: Good Progress tolerated Rx well, romano at hand, nurse present PT Short Term Goals Short Term Goals Time Frame: Dec 01, 2021 Roll Left & Right: 4 Sit to lyin (Nell) Lying to sitting on side of be: 3 (Nell) Sit to stand: 3 (modA) Chair/cdk-ab-qmskh transfer: 4 (CGA) Walk 10 feet: 4 (CGA) PT Prison Goals Prison Goals PT Director Smb Sales Goals Time Frame: Dec 15, 2021 Roll Left & Right (QC): 6 Sit to Lying (QC): 4 (SBA) Lying-Sitting on Side/Bed(QC): 4 (SBA) Sit to Stand (QC): 3 (Nell) Chair/Hsv-bn-Viuea Xfer(QC): 4 (SBA) Toilet Transfer (QC): 4 (SBA) Car Transfer (QC): 3 (Nell) Does the Patient Walk: Yes Walk 10 feet (QC): 4 (SBA) Walk 50ft with 2 Turns (QC): 4 (SBA) Walk 150 ft (QC): 88 Walking 10ft on Uneven Surface: 4 (CGA) 1 Step (curb) (QC): 88 4 Steps (QC): 88 12 Steps (QC): 88 Picking up an Object (QC): 4 Wheel 50 feet with 2 turns (QC: 6 Wheel 150 feet: 6 PT Plan Treatment/Plan Treatment Plan: Continue Plan of Care Treatment Plan: Bed Mobility, Education, Functional Activity Yennifer, Functional Strength, Group Therapy, Gait, Safety, Therapeutic Exercise, Transfers Treatment Duration: Dec 15, 2021 Frequency: At least 5 of 7 days/Wk (IRF) Estimated Hrs Per Day: 1.5 hours per day Patient and/or Family Agrees t: Yes Safety Risks/Education Patient Education: Transfer Techniques, Correct Positioning, Reviewed Don/Doff Brace, Disease Process, Safety Issues Teaching Recipient: Patient Teaching Methods: Demonstration, Discussion Response to Teaching: Verbalize Understanding, Return Demonstration, Reinforcement Needed Time/GCodes Time In: 820 Time Out: 840 Total Billed Treatment Time: 20 Total Billed Treatment 1,FA20m [employer] Dec 02, 2021 08:53
[2021-12-02] MEDS: ENOXAPARIN 40 MG/0.4 ML (LOVENOX) SYR SC SCH (12:21)
[2021-12-02] MEDS: inSUlin ASPART (NovoLOG) 1 UNIT/0.01 ML (CHARGE PER UNIT) SC SCH ×2 (16:04→21:18)
[2021-12-02 18:12] VITALS: BP 120/61
[2021-12-02 20:25] VITALS: BP 130/59
[2021-12-03] MEDS: ONDANSETRON 4 MG (ZOFRAN) ORAL DISSOLVE TAB PO PRN (01:00)
[2021-12-03] MEDS: LEVOTHYROXINE 100 MCG (LEVOTHROID) TAB PO SCH (06:14)
[2021-12-03] MEDS: inSUlin ASPART (NovoLOG) 1 UNIT/0.01 ML (CHARGE PER UNIT) SC SCH ×4 (06:14→20:36)
[2021-12-03] MEDS: BETHANECHOL 25 MG (URECHOLINE) TAB PO SCH ×3 (06:15→17:00)
[2021-12-03] MEDS: APAP 300 MG/CODEINE 30 MG (TYLENOL #3) TAB PO PRN ×2 (06:15→20:36)
--- NOTE | 2021-12-03 07:13 | PM&R Progress Note ---
Subjective HPI/CC On Admission Date Seen by Provider: Dec 03, 2021 Time Seen by Provider: 12:00 Subjective/Events-last exam 12/03/21: Patient doing well Family really cannot help her out of the house so we will need to explore assisted living or jail placement Sugars are improved Transferring to chair and doing pretty well with that 12/02/2021: Patient doing about the same Nervous about going home Very frail emotionally causing issues with confidence Pain is improved No falls 12/01/2021: Pt doing well Discharge on Saturday Pain is well controlled Bowels are moving No more Hypoglycemia Appetite is poor 11/30/21: Pt is doing well Bowels moved on 11/26 Decreased appetite Blood sugars are in the 120's Overall doing very well 11/29/21: Pt is doing well Tylenol# 3 initiated with good results Post void residual is minimal Getting into chair with minimal assist Bowels moved on 11/2611/28/21: Pt having some hypoglycemia She did stand up and pivot with therapy Psych consult will be tomorrow at 1100 Holding oral hypoglycemic and NPH insulin 11/27/2021: Pt is doing well Incision looks good Hydrocodone will be used for pain Urecholine and Pyridium are helping post void residual Bowels moved yesterday 11/26/21: Patient feels better Pain controlled Urinary retention noted Pyridium TID prn Urology consult a possibility tomorrow 11/25/21: Patient feels about the same Flat affect noted Reassured BM+ Urinary retention so ordered Urecholine 11/24/2021: Pt is doing pretty well Has chronic nausea Dressing over the incision will be changed per Dr. Ash's orders Pain is 4-5 Appears to be very depressed so will monitor that closely Review of Systems General: Fatigue, Malaise Objective Exam Vital Signs Vital Signs Date Time Temp Pulse Resp B/P (MAP) Pulse Ox O2 Delivery O2 Flow Rate FiO2 12/03/21 09:54 Room Air 12/03/21 07:30 37.1 84 20 141/61 (87) 93 Capillary Refill : General Appearance: No Apparent Distress, WD/WN, Chronically ill HEENT: PERRL/EOMI, Normal ENT Inspection, Pharynx Normal Neck: Full Range of Motion, Normal Inspection, Non Tender, Supple, Carotid Bruit Respiratory: Chest Non Tender, Lungs Clear, Normal Breath Sounds, No Accessory Muscle Use, No Respiratory Distress Cardiovascular: Regular Rate, Rhythm, No Edema, No Gallop, No JVD, No Murmur, Normal Peripheral Pulses Gastrointestinal: Normal Bowel Sounds, No Organomegaly, No Pulsatile Mass, Non Tender, Soft Back: CVA Tenderness (L), CVA Tenderness (R), Decreased Range of Motion, Muscle Spasm, Vertebral Tenderness Extremity: Normal Capillary Refill, Normal Inspection, Normal Range of Motion (Except lower extremities), Non Tender, No Calf Tenderness, No Pedal Edema Neurologic/Psychiatric: Alert, Oriented x3, water purification chemist II-XII Norm as Tested, Depressed Affect, Motor Weakness (Lower extremities severe weakness) Skin: Normal Color, Warm/Dry Lymphatic: No Adenopathy Results/Procedures Lab Patient resulted labs reviewed. FIM Transfers Therapy Code Descriptions/Definitions Functional [place] Measure: 0=Not Assessed/NA 4=Minimal Assistance 1=Total Assistance 5=Supervision or Setup 2=Maximal Assistance 6=Modified [place] 3=Moderate Assistance 7=Complete IndependenceSCALE: Activities may be completed with or without assistive devices. 8-Shwejdhxml-rjhaljn completes the activity by him/herself with no assistance from a helper. 5-Set-up or Clean-up Assistance-helper sets up or cleans up; patient completes activity. [place] assists only prior to or following the activity. 4-Supervision or Touching Assistance-helper provides verbal cues and/or touching/steadying and/or contact guard assistance as patient completes activity. Assistance may be provided throughout the activity or intermittently. 3-Partial/Moderate Assistance-helper does LESS THAN HALF the effort. [place] lifts, holds or supports trunk or limbs, but provides less than half the effort. 2-Substantial/Maximal Assistance-helper does MORE THAN HALF the effort. [place] lifts or holds trunk or limbs and provides more than half the effort. 9-Gdwfkoghb-gqedht does ALL the effort. Patient does none of the effort to complete the activity. Or, the assistance of 2 or more helpers is required for the patient to complete the activity. If activity was not attempted, code reason: 7-Patient Refused. 9-Not Applicable-not attempted and the patient did not perform the activity before the current illness, exacerbation or injury. 10-Not Attempted due to Environmental Limitations-(lack of equipment, weather restraints, etc.). 88-Not Attempted due to Medical Conditions or Safety Concerns. Roll Left to Right (QC): 4 Sit to Lying (QC): 3 Sit to Stand (QC): 3 Chair/Yhk-zt-Tldis Xfer(QC): 3 Car Transfer (QC): 2 Gait Training Does the Patient Walk?: No and Walking Goal IS indicated Distance: 5', 10', 15' Walk 10 feet (QC): 3 Walk 50 ft with 2 Turns(QC): 88 Walk 150 ft (QC): 88 Walking 10ft/uneven surface-QC: 88 Gait Persons Needed: 1 Gait Assistive Device: FWW Wheelchair Training Does the Pt Use a Wheelchair?: Yes Distance: 100'x2 Wheel 50 ft with 2 turns (QC): 4 Wheel 150 ft (QC): 5 Type of Wheelchair: Manual Stair Training 1 Step (curb) (QC): 88 4 Steps (QC): 88 12 Steps (QC): 88 Balance Picking up an Object (QC): 88 ADL-Treatment Eating (QC): 6 Oral Hygiene (QC): 6 (seated at sink) Bathing Location: L Arm, R Arm, L Upper Leg, R Upper Leg, L Lower Leg (including foot), R Lower Leg (including foot), Chest, Abdomen, Perineal Area Shower/Bathe Self (QC): 3 (Min A overall. Pt unable to wash buttocks and required min v/c's to maintain back precautions during bathing. ) Upper Body Dressing (QC): 3 (Min A. Pt required assistance to clip top hook of TLSO brace, mod A sitting balance. Required v/c's with sequencing when donning brace.) Lower Body Dressing (QC): 3 (Mod A. Pt required tactile and verbal cues to thread legs through brief. Pt unable to hike pants up when standing d/t decreased balance) On/Off Footwear (QC): 4 (SBA for balance. Min v/c's for sequencing when using sock aid) Toileting Hygiene (QC): 1 (assist x2 for standing balance and hiking pants. Pt able to clean periarea.) Toilet Transfer (QC): 3 (mod A on/off BSC.) Assessment/Plan Assessment and Plan Assess & Plan/Chief Complaint Assessment: Severe debility following T12 laminectomy with bilateral decompression with T10-T11, T11-T12, T12-L1, L1-L2 posterior lateral fusion requiring Medtronic pedicle screws and local bone graft by Dr. Ash on 11/17/2021 at [facility] Severe debility History of depression and 96-hour hold due to suicidal ideation in the past 3 years ago Diabetes Anxiety Depression Hypertension Hypothyroidism MRSA infection Urinary retention 11/25/21 now resolved Hypoglycemia requiring adjustments in meds 11/28 Plan: Pain control Supportive residential meds Fall risk Bowel regimen 11/24/21: Monitor closely Pain management Monitor BP 11/25/21: Monitor closely Pain mngt Urecholine 11/26/21: Pyridium Monitor pain 11/27/2021: Continue bladder meds Supportive care 11/28/21: Monitor closely Hold OHA and NPH 11/29/21: Monitor glucose Pain control 11/30/21: Monitor BP Monitor glucose 12/01/21: Monitor glucose Supportive care Add back insulin 12/02/2021: Continue aggressive rehab Monitor labile sugars 12/03/21: Inquire with when anaya should be removed Needs jail placement or assisted living (1) S/P spinal fusion ANA GARCIA DO Dec 03, 2021 07:13
[2021-12-03 07:30] VITALS: BP 141/61
[2021-12-03] MEDS: buPROPion SR 150 MG (WELLBUTRIN SR) TAB PO SCH ×2 (08:38→20:36)
[2021-12-03] MEDS: PHENAZOPYRIDINE 100 MG (PYRIDIUM) TABLET PO SCH ×3 (08:38→18:23)
[2021-12-03] MEDS: GABAPENTIN 300 MG (NEURONTIN) CAP PO SCH ×3 (08:38→20:36)
[2021-12-03] MEDS: FLUoxetine HCL 20 MG (PROzac) CAP PO SCH (08:38)
[2021-12-03] MEDS: SENNA W/DOCUSATE (SENOKOT S) TABLET PO SCH ×2 (08:39→20:38)
[2021-12-03] MEDS: DOCUSATE SODIUM 100 MG (COLACE) CAP PO SCH ×2 (08:39→20:37)
[2021-12-03] MEDS: polyethylene glycoL POWDER 17 GM (MIRALAX) PACK PO SCH ×2 (08:40→20:38)
[2021-12-03] MEDS: ENOXAPARIN 40 MG/0.4 ML (LOVENOX) SYR SC SCH (11:48)
[2021-12-03 18:26] VITALS: BP 83/54
[2021-12-03 18:47] VITALS: BP 110/56
[2021-12-03 19:58] VITALS: BP 102/50
[2021-12-04 00:31] VITALS: BP 98/57
[2021-12-04] MEDS: LEVOTHYROXINE 100 MCG (LEVOTHROID) TAB PO SCH (06:13)
[2021-12-04] MEDS: BETHANECHOL 25 MG (URECHOLINE) TAB PO SCH ×3 (06:13→15:57)
[2021-12-04] MEDS: inSUlin ASPART (NovoLOG) 1 UNIT/0.01 ML (CHARGE PER UNIT) SC SCH ×4 (06:14→20:56)
--- NOTE | 2021-12-04 07:10 | PM&R Progress Note ---
Subjective HPI/CC On Admission Date Seen by Provider: Dec 04, 2021 Time Seen by Provider: 10:00 Subjective/Events-last exam 12/04/21: Patient doing well No fever WBC 19 so will add PCT and order in/out cath UA Wound care consulted 12/03/21: Patient doing well Family really cannot help her out of the house so we will need to explore assisted living or care home placement Sugars are improved Transferring to chair and doing pretty well with that 12/02/2021: Patient doing about the same Nervous about going home Very frail emotionally causing issues with confidence Pain is improved No falls 12/01/2021: Pt doing well Discharge on Saturday Pain is well controlled Bowels are moving No more Hypoglycemia Appetite is poor 11/30/21: Pt is doing well Bowels moved on 11/26 Decreased appetite Blood sugars are in the 120's Overall doing very well 11/29/21: Pt is doing well Tylenol# 3 initiated with good results Post void residual is minimal Getting into chair with minimal assist Bowels moved on 11/2611/28/21: Pt having some hypoglycemia She did stand up and pivot with therapy Psych consult will be tomorrow at 1100 Holding oral hypoglycemic and NPH insulin 11/27/2021: Pt is doing well Incision looks good Hydrocodone will be used for pain Urecholine and Pyridium are helping post void residual Bowels moved yesterday 11/26/21: Patient feels better Pain controlled Urinary retention noted Pyridium TID prn Urology consult a possibility tomorrow 11/25/21: Patient feels about the same Flat affect noted Reassured BM+ Urinary retention so ordered Urecholine 11/24/2021: Pt is doing pretty well Has chronic nausea Dressing over the incision will be changed per Dr. Ash's orders Pain is 4-5 Appears to be very depressed so will monitor that closely Review of Systems General: Fatigue, Malaise Musculoskeletal: back pain Objective Exam Vital Signs Vital Signs Date Time Temp Pulse Resp B/P (MAP) Pulse Ox O2 Delivery O2 Flow Rate FiO2 12/04/21 07:36 37.1 105 16 115/59 (77) 92 Room Air Capillary Refill : General Appearance: No Apparent Distress, WD/WN, Chronically ill HEENT: PERRL/EOMI, Normal ENT Inspection, Pharynx Normal Neck: Full Range of Motion, Normal Inspection, Non Tender, Supple, Carotid Bruit Respiratory: Chest Non Tender, Lungs Clear, Normal Breath Sounds, No Accessory Muscle Use, No Respiratory Distress Cardiovascular: Regular Rate, Rhythm, No Edema, No Gallop, No JVD, No Murmur, Normal Peripheral Pulses Gastrointestinal: Normal Bowel Sounds, No Organomegaly, No Pulsatile Mass, Non Tender, Soft Back: CVA Tenderness (L), CVA Tenderness (R), Decreased Range of Motion, Muscle Spasm, Vertebral Tenderness Extremity: Normal Capillary Refill, Normal Inspection, Normal Range of Motion ( Except lower extremities), Non Tender, No Calf Tenderness, No Pedal Edema Neurologic/Psychiatric: Alert, Oriented x3, salvage grinder II-XII Norm as Tested, Depressed Affect, Motor Weakness (Lower extremities severe weakness) Skin: Normal Color, Warm/Dry Lymphatic: No Adenopathy Results/Procedures Lab Laboratory Tests 12/04/21 07:30 Patient resulted labs reviewed. FIM Transfers Therapy Code Descriptions/Definitions Functional [place] Measure: 0=Not Assessed/NA 4=Minimal Assistance 1=Total Assistance 5=Supervision or Setup 2=Maximal Assistance 6=Modified [place] 3=Moderate Assistance 7=Complete IndependenceSCALE: Activities may be completed with or without assistive devices. 6-Xrcsynewyd-vgknmxo completes the activity by him/herself with no assistance from a helper. 5-Set-up or Clean-up Assistance-helper sets up or cleans up; patient completes activity. [place] assists only prior to or following the activity. 4-Supervision or Touching Assistance-helper provides verbal cues and/or touching/steadying and/or contact guard assistance as patient completes activ ity. Assistance may be provided throughout the activity or intermittently. 3-Partial/Moderate Assistance-helper does LESS THAN HALF the effort. [place] lifts, holds or supports trunk or limbs, but provides less than half the effort. 2-Substantial/Maximal Assistance-helper does MORE THAN HALF the effort. [place] lifts or holds trunk or limbs and provides more than half the effort. 6-Rveafchio-nuhxks does ALL the effort. Patient does none of the effort to complete the activity. Or, the assistance of 2 or more helpers is required for the patient to complete the activity. If activity was not attempted, code reason: 7-Patient Refused. 9-Not Applicable-not attempted and the patient did not perform the activity before the current illness, exacerbation or injury. 10-Not Attempted due to Environmental Limitations-(lack of equipment, weather restraints, etc.). 88-Not Attempted due to Medical Conditions or Safety Concerns. Roll Left to Right (QC): 4 Sit to Lying (QC): 3 Sit to Stand (QC): 3 Chair/Kya-uh-Ciunz Xfer(QC): 3 Car Transfer (QC): 2 Gait Training Does the Patient Walk?: No and Walking Goal IS indicated Distance: 5', 10', 15' Walk 10 feet (QC): 3 Walk 50 ft with 2 Turns(QC): 88 Walk 150 ft (QC): 88 Walking 10ft/uneven surface-QC: 88 Gait Persons Needed: 1 Gait Assistive Device: FWW Wheelchair Training Does the Pt Use a Wheelchair?: Yes Distance: 100'x2 Wheel 50 ft with 2 turns (QC): 4 Wheel 150 ft (QC): 5 Type of Wheelchair: Manual Stair Training 1 Step (curb) (QC): 88 4 Steps (QC): 88 12 Steps (QC): 88 Balance Picking up an Object (QC): 88 ADL-Treatment Eating (QC): 6 Oral Hygiene (QC): 6 (seated at sink) Bathing Location: L Arm, R Arm, L Upper Leg, R Upper Leg, L Lower Leg (including foot), R Lower Leg (including foot), Chest, Abdomen, Perineal Area Shower/Bathe Self (QC): 3 (Min A overall. Pt unable to wash buttocks and requi red min v/c's to maintain back precautions during bathing. ) Upper Body Dressing (QC): 3 (Min A. Pt required assistance to clip top hook of TLSO brace, mod A sitting balance. Required v/c's with sequencing when donning brace.) Lower Body Dressing (QC): 3 (Mod A. Pt required tactile and verbal cues to thread legs through brief. Pt unable to hike pants up when standing d/t decreased balance) On/Off Footwear (QC): 4 (SBA for balance. Min v/c's for sequencing when using sock aid) Toileting Hygiene (QC): 1 (assist x2 for standing balance and hiking pants. Pt able to clean periarea.) Toilet Transfer (QC): 3 (mod A on/off BSC.) Assessment/Plan Assessment and Plan Assess & Plan/Chief Complaint Assessment: Severe debility following T12 laminectomy with bilateral decompression with T10- T11, T11-T12, T12-L1, L1-L2 posterior lateral fusion requiring [employer] pedicle screws and local bone graft by Dr. Ash on 11/17/2021 at [facility] Severe debility History of depression and 96-hour hold due to suicidal ideation in the past 3 years ago Diabetes Anxiety Depression Hypertension Hypothyroidism MRSA infection Urinary retention 11/25/21 now resolved Hypoglycemia requiring adjustments in meds 11/28 Leukocytosis Plan: Pain control Supportive prison meds Fall risk Bowel regimen 11/24/21: Monitor closely Pain management Monitor BP 11/25/21: Monitor closely Pain mngt Urecholine 11/26/21: Pyridium Monitor pain 11/27/2021: Continue bladder meds Supportive care 11/28/21: Monitor closely Hold OHA and NPH 11/29/21: Monitor glucose Pain control 11/30/21: Monitor BP Monitor glucose 12/01/21: Monitor glucose Supportive care Add back insulin 12/02/2021: Continue aggressive rehab Monitor labile sugars 12/03/21: Inquire with when anaya should be removed Needs care home placement or assisted living 12/04/21: In/Out cath Monitor wbc PCT normal (1) S/P spinal fusion ANA GARCIA DO Dec 04, 2021 07:10
[2021-12-04 07:36] VITALS: BP 115/59
[2021-12-04 07:46] LABS: BASOPHILS # (AUTO) 0.1 10^3/uL (0.0-0.1); BASOPHILS % (AUTO) 1 % (0-10); EOSINOPHILS # (AUTO) 0.3 10^3/uL (0.0-0.3); EOSINOPHILS % (AUTO) 1 % (0-10); HEMATOCRIT 39 % (35-52); HEMOGLOBIN 11.9 g/dL (11.5-16.0); LYMPHOCYTES # (AUTO) 1.8 10^3/uL (1.0-4.0); LYMPHOCYTES % (AUTO) 9 % (12-44); MEAN CORPUSCULAR HEMOGLOBIN 28 pg (25-34); MEAN CORPUSCULAR HGB CONC 31 g/dL (32-36); MEAN CORPUSCULAR VOLUME 90 fL (80-99); MEAN PLATELET VOLUME 10.5 fL (9.0-12.2); MONOCYTES # (AUTO) 1.6 10^3/uL (0.0-1.0); MONOCYTES % (AUTO) 8 % (0-12); NEUTROPHILS % (AUTO) 80 % (42-75); PLATELET COUNT 377 10^3/uL (130-400); WHITE BLOOD COUNT 19.9 10^3/uL (4.3-11.0)
[2021-12-04] MEDS: FLUoxetine HCL 20 MG (PROzac) CAP PO SCH (07:47)
[2021-12-04] MEDS: buPROPion SR 150 MG (WELLBUTRIN SR) TAB PO SCH ×2 (07:47→20:57)
[2021-12-04] MEDS: PHENAZOPYRIDINE 100 MG (PYRIDIUM) TABLET PO SCH ×3 (07:47→17:35)
[2021-12-04] MEDS: GABAPENTIN 300 MG (NEURONTIN) CAP PO SCH ×3 (07:48→20:57)
[2021-12-04] MEDS: APAP 300 MG/CODEINE 30 MG (TYLENOL #3) TAB PO PRN ×3 (07:51→20:57)
[2021-12-04 08:20] LABS: ALBUMIN 3.3 GM/DL (3.2-4.5); BILIRUBIN,TOTAL 0.5 MG/DL (0.1-1.0); CALCIUM 9.6 MG/DL (8.5-10.1); CREATININE SERUM 1.26 MG/DL (0.60-1.30); POTASSIUM 4.4 MMOL/L (3.6-5.0)
[2021-12-04] MEDS: DOCUSATE SODIUM 100 MG (COLACE) CAP PO SCH ×2 (09:00→21:08)
[2021-12-04] MEDS: ONDANSETRON 4 MG (ZOFRAN) ORAL DISSOLVE TAB PO PRN (09:02)
[2021-12-04 09:15] LABS: BAND NEUTROPHILS 0 %; BASOPHILS % (MANUAL) 0 %; EOSINOPHILS % (MANUAL) 0 %; LYMPHOCYTES % (MANUAL) 10 %; MONOCYTES % (MANUAL) 7 %; NEUTROPHILS % (MANUAL) 83 %; RBC MORPH NORMAL
--- NOTE | 2021-12-04 09:30 | Occupational Ther Daily Note ---
OT Current Status-Daily Note Subjective Pt laying supine in bed. Pt agreeable to tx. Pt's BUE noticeably more shaky with exertion. Mental Status/Objective Patient Orientation: Person, Place, Situation ADL-Treatment Therapy Code Descriptions/Definitions Functional [place] Measure: 0=Not Assessed/NA 4=Minimal Assistance 1=Total Assistance 5=Supervision or Setup 2=Maximal Assistance 6=Modified [place] 3=Moderate Assistance 7=Complete IndependenceSCALE: Activities may be completed with or without assistive devices. 5-Dmrehiszzx-qhqnteb completes the activity by him/herself with no assistance from a helper. 5-Set-up or Clean-up Assistance-helper sets up or cleans up; patient completes activity. [place] assists only prior to or following the activity. 4-Supervision or Touching Assistance-helper provides verbal cues and/or to uching/steadying and/or contact guard assistance as patient completes activity. Assistance may be provided throughout the activity or intermittently. 3-Partial/Moderate Assistance-helper does LESS THAN HALF the effort. [place] lifts, holds or supports trunk or limbs, but provides less than half the effort. 2-Substantial/Maximal Assistance-helper does MORE THAN HALF the effort. [place] lifts or holds trunk or limbs and provides more than half the effort. 1-Gbhpvtqwy-nynbpx does ALL the effort. Patient does none of the effort to complete the activity. Or, the assistance of 2 or more helpers is required for the patient to complete the activity. If activity was not attempted, code reason: 7-Patient Refused. 9-Not Applicable-not attempted and the patient did not perform the activity before the current illness, exacerbation or injury. 10-Not Attempted due to Environmental Limitations-(lack of equipment, weather restraints, etc.). 88-Not Attempted due to Medical Conditions or Safety Concerns. Eating (QC): 6 Oral Hygiene (QC): 6 Shower/Bathe Self (QC): 4 (v/c's required for sequencing and maintaining back precautions. 100% seated on SC.) Upper Body Dressing (QC): 3 (Mod A overall. Pt required help to donning shirt in back, Min A donning TLSO) Lower Body Dressing (QC): 1 (Assist x2 in stand. Pt required help threading BLE through brief and pants and hiking.) On/Off Footwear: 3 (Mod A overall. Pt able to doff, assist to don with AE d/t fatigue and wet feet) Toileting Hygiene (QC): 1 (Assist x2 in standing to hike pants. Pt able to doff pants and clean periarea.) Toilet Transfer (QC): 1 (Assist x2 to get off toilet. ) Other Treatment Pt laying supine in bed prior to tx. Pt required min A to log roll to seated EOB, back brace donned. Pt transferred to w/c with FWW, CGA. Pt pushed to bathroom to completed toileting, showering, dressing, and seated oral hygiene tasks. Pt required assist x2 (with ~4 attempts to stand) to get off toilet, then used FWW to walk to shower, CGA. Pt completed UBD and footwear in shower (used zinc chloride operator and sock aid) before transferring to w/ to complete LBD and seated oral hygiene tasks at the sink. Pt required RB after shower d/t n/v and fatigue. Nurse notified of vomiting. Pt transferred to recliner with FWW, Min A. Post tx, pt left in recliner with call light in reach and all needs met. Education OT Patient Education: Correct positioning, Energy conservation, Exercise program, Instructions don/doff splint/brace, Modified ADL techniques, Progress toward Goal/Update tx plan, Purpose of tx/functional activities, Reviewed precautions, Rehab process, Safety issues, Transfer techniques, Use of adapted equipment Teaching Recipient: Patient Teaching Methods: Demonstration, Discussion Response to Teaching: Verbalize Understanding, Return Demonstration, Reinforcement Needed OT Short Term Goals Short Term Goals Time Frame: Dec 08, 2021 Toileting hygiene: 3 Shower/bathe self: 3 Upper body dressin Lower body dressin Putting on/taking off footwear: 3 OT Custodial Goals Fitter / Welder Goals Time Frame: Dec 22, 2021 Eating (QC): 6 Oral Hygiene (QC): 6 Toileting Hygiene (QC): 4 Shower/Bathe Self (QC): 5 (bed level sponge bath) Upper Body Dressing (QC): 5 (bed level) Lower Body Dressing (QC): 4 On/Off Footwear (QC): 4 Additional Goals: 1-Demonstrate ADL Tasks, 2-Verbalize Understanding, 3- ImproveStrength/Yennifer 1=Demonstrate adherence to instructed precautions during ADL tasks. 2=Patient will verbalize/demonstrate understanding of assistive devices/modifications for ADL. 3=Patient will improve strength/tolerance for activity to enable patient to perform ADL's. OT Education/Plan Problem List/Assessment Assessment: Decreased Activ Tolerance, Decreased Safety Aware, Decreased UE Strength, Impaired Bed Mobility, Impaired Coordination, Impaired Funct Balance, Impaired I ADL's, Impaired Self-Care Skills, Restricted Funct UE ROM Discharge Recommendations Plan/Recommendations: Continue POC Treatment Plan/Plan of Care Patient would benefit from OT for education, treatment and training to promote independence in ADL's, mobility, safety and/or upper extremity function for ADL's. Plan of Care: ADL Retraining, Cognitive Retraining, Concurrent Therapy, Functional Mobility, Group Exercise/Act as Ind Treatment Duration: Nov 24, 2021 Frequency: 5 times per week Estimated Hrs Per Day: 1 hour per day Rehab Potential: Fair Time/GCodes Start Time: 08:00 Stop Time: 09:30 Total Time Billed (hr/min): 90 Billed Treatment Time 1, ADL 6 (90') RHYS MENEZES OT Dec 04, 2021 09:30
--- NOTE | 2021-12-04 10:54 | Physical Therapy Daily Note ---
PT Daily Note-Current Subjective Patient in recliner pre tx, agrees to PT, has 3/10 pain in her abdomen and low back. Appearance Patient in bed post tx with nurse call, phone, tray, all needs met. Mental Status Patient Orientation: Person, Place, Situation TLSO Transfers SCALE: Activities may be completed with or without assistive devices. 9-Ftmgbusaeh-usltnhz completes the activity by him/herself with no assistance from a helper. 5-Set-up or Clean-up Assistance-helper sets up or cleans up; patient completes activity. [place] assists only prior to or following the activity. 4-Supervision or Touching Assistance-helper provides verbal cues and/or touching/steadying and/or contact guard assistance as patient completes activity. Assistance may be provided throughout the activity or intermittently. 3-Partial/Moderate Assistance-helper does LESS THAN HALF the effort. [place] lifts, holds or supports trunk or limbs, but provides less than half the effort. 2-Substantial/Maximal Assistance-helper does MORE THAN HALF the effort. [place] lifts or holds trunk or limbs and provides more than half the effort. 8-Kbcmaaizu-ntwcdt does ALL the effort. Patient does none of the effort to complete the activity. Or, the assistance of 2 or more helpers is required for the patient to complete the activity. If activity was not attempted, code reason: 7-Patient Refused. 9-Not Applicable-not attempted and the patient did not perform the activity before the current illness, exacerbation or injury. 10-Not Attempted due to Environmental Limitations-(lack of equipment, weather restraints, etc.). 88-Not Attempted due to Medical Conditions or Safety Concerns. Roll Left & Right (QC): 4 Sit to Lying (QC): 3 Sit to Stand (QC): 3 Chair/Duy-kw-Outeg Xfer(QC): 3 mod assist for sit to supine, min assist for sit to stand and transfers, patient needs cues for safety and positioning Weight Bearing Full Weight Bearing Full Weight Bearing Gait Training Distance: 10', 15', 20' Walk 10 feet (QC): 3 Gait Persons Needed: 1 Gait Assistive Device: FWW ambulation is very unsteady, patient is shaky, bears a lot of weight through her arms Wheelchair Training Does the Pt Use a Wheelchair?: Yes Wheel 50 ft with 2 turns (QC): 3 Type of Wheelchair: Manual 120'x2, needs assist around obstacles and corners, getting better at turning though Exercises NuStep Minutes: 15 NuStep Workload: 4 (BUE not used) Treatments bed mobility and transfers, ambulation, LE strengthening, WC mobility Assessment Current Status: Poor Progress patient is making some progress but it is very slow, she has persistent LE weakness PT Short Term Goals Short Term Goals Time Frame: Dec 01, 2021 Roll Left & Right: 4 Sit to lyin (Nell) Lying to sitting on side of be: 3 (Nell) Sit to stand: 3 (modA) Chair/arb-sv-npdtr transfer: 4 (CGA) Walk 10 feet: 4 (CGA) PT Group Home Goals Group Home Goals PT Skin Lifter [place] Goals Time Frame: Dec 15, 2021 Roll Left & Right (QC): 6 Sit to Lying (QC): 4 (SBA) Lying-Sitting on Side/Bed(QC): 4 (SBA) Sit to Stand (QC): 3 (Nell) Chair/Riu-ol-Bzafh Xfer(QC): 4 (SBA) Toilet Transfer (QC): 4 (SBA) Car Transfer (QC): 3 (Nell) Does the Patient Walk: Yes Walk 10 feet (QC): 4 (SBA) Walk 50ft with 2 Turns (QC): 4 (SBA) Walk 150 ft (QC): 88 Walking 10ft on Uneven Surface: 4 (CGA) 1 Step (curb) (QC): 88 4 Steps (QC): 88 12 Steps (QC): 88 Picking up an Object (QC): 4 Wheel 50 feet with 2 turns (QC: 6 Wheel 150 feet: 6 PT Plan Problem List Problem List: Activity Tolerance, Functional Strength, Safety, Balance, Gait, Transfer, Bed Mobility, ROM Treatment/Plan Treatment Plan: Continue Plan of Care Treatment Plan: Bed Mobility, Education, Functional Activity Yennifer, Functional Strength, Group Therapy, Gait, Safety, Therapeutic Exercise, Transfers Treatment Duration: Dec 15, 2021 Frequency: At least 5 of 7 days/Wk (IRF) Estimated Hrs Per Day: 1.5 hours per day Patient and/or Family Agrees t: Yes Safety Risks/Education Patient Education: Gait Training, Transfer Techniques, Correct Positioning, W/C Management, Reviewed Don/Doff Brace, Safety Issues Teaching Recipient: Patient Teaching Methods: Demonstration, Discussion Response to Teaching: Reinforcement Needed Time/GCodes Time In: 1000 Time Out: 1100 Total Billed Treatment Time: 60 Total Billed Treatment 1 visit EX 15' FA 45' NERISSA BENITEZ PT Dec 04, 2021 10:54
[2021-12-04 11:18] LABS: BILIRUBIN,URINE NEGATIVE (NEGATIVE); CLARITY,URINE CLEAR; COLOR,URINE ORANGE; GLUCOSE, URINE (UA) 1+ (NEGATIVE); KETONES,URINE TRACE (NEGATIVE); LEUKOCYTE ESTERASE ,URINE TRACE (NEGATIVE); NITRITE,URINE POSITIVE (NEGATIVE); PROTEIN,URINE 2+ (NEGATIVE)
[2021-12-04] MEDS: SENNA W/DOCUSATE (SENOKOT S) TABLET PO SCH ×2 (11:18→21:08)
[2021-12-04] MEDS: polyethylene glycoL POWDER 17 GM (MIRALAX) PACK PO SCH ×2 (11:18→19:37)
[2021-12-04 11:29] LABS: BACTERIA,URINE NEGATIVE /HPF; HYALINE CASTS, URINE RARE /LPF; RBC,URINE RARE /HPF; WBC,URINE RARE /HPF
[2021-12-04] MEDS: ENOXAPARIN 40 MG/0.4 ML (LOVENOX) SYR SC SCH (12:04)
--- NOTE | 2021-12-04 13:25 | Physical Therapy Daily Note ---
PT Daily Note-Current Subjective Patient in bed pre tx, agrees to PT, has 3/10 pain in abdomen and back, needs to use the commode Appearance patient in bed post tx with nurse call, phone, tray, all needs met. Mental Status Patient Orientation: Person, Place, Situation TLSO Transfers SCALE: Activities may be completed with or without assistive devices. 2-Xsnldtqmeu-tnktqpv completes the activity by him/herself with no assistance from a helper. 5-Set-up or Clean-up Assistance-helper sets up or cleans up; patient completes activity. [place] assists only prior to or following the activity. 4-Supervision or Touching Assistance-helper provides verbal cues and/or touching/steadying and/or contact guard assistance as patient completes activity. Assistance may be provided throughout the activity or intermittently. 3-Partial/Moderate Assistance-helper does LESS THAN HALF the effort. [place] lifts, holds or supports trunk or limbs, but provides less than half the effort. 2-Substantial/Maximal Assistance-helper does MORE THAN HALF the effort. [place] lifts or holds trunk or limbs and provides more than half the effort. 3-Vaspspxkb-qzvjyl does ALL the effort. Patient does none of the effort to complete the activity. Or, the assistance of 2 or more helpers is required for the patient to complete the activity. If activity was not attempted, code reason: 7-Patient Refused. 9-Not Applicable-not attempted and the patient did not perform the activity before the current illness, exacerbation or injury. 10-Not Attempted due to Environmental Limitations-(lack of equipment, weather restraints, etc.). 88-Not Attempted due to Medical Conditions or Safety Concerns. Roll Left & Right (QC): 3 Sit to Lying (QC): 3 Lying to Sitting/Side of Bed(Q: 2 Sit to Stand (QC): 3 Chair/Lkt-fg-Bqqkc Xfer(QC): 3 Toilet Transfer (QC): 3 Car Transfer (QC): 1 nurse assists with cleaning and pants Weight Bearing Full Weight Bearing Full Weight Bearing Stair Training 1 Step (curb) (QC): 88 4 Steps (QC): 88 12 Steps (QC): 88 Balance Picking up an Object (QC): 88 Treatments bed mobility and transfers, toileting Assessment Current Status: Poor Progress Patient had very poor sitting balance initially, kept falling to the right side PT Short Term Goals Short Term Goals Time Frame: Dec 01, 2021 Roll Left & Right: 4 Sit to lyin (Nell) Lying to sitting on side of be: 3 (Nell) Sit to stand: 3 (modA) Chair/mvf-oq-vveca transfer: 4 (CGA) Walk 10 feet: 4 (CGA) PT Steam Finisher Goals Steam Finisher Goals PT Care Home Goals Time Frame: Dec 15, 2021 Roll Left & Right (QC): 6 Sit to Lying (QC): 4 (SBA) Lying-Sitting on Side/Bed(QC): 4 (SBA) Sit to Stand (QC): 3 (Nell) Chair/Tul-hm-Uikgs Xfer(QC): 4 (SBA) Toilet Transfer (QC): 4 (SBA) Car Transfer (QC): 3 (Nell) Does the Patient Walk: Yes Walk 10 feet (QC): 4 (SBA) Walk 50ft with 2 Turns (QC): 4 (SBA) Walk 150 ft (QC): 88 Walking 10ft on Uneven Surface: 4 (CGA) 1 Step (curb) (QC): 88 4 Steps (QC): 88 12 Steps (QC): 88 Picking up an Object (QC): 4 Wheel 50 feet with 2 turns (QC: 6 Wheel 150 feet: 6 PT Plan Problem List Problem List: Activity Tolerance, Functional Strength, Safety, Balance, Gait, Transfer, Bed Mobility, ROM Treatment/Plan Treatment Plan: Continue Plan of Care Treatment Plan: Bed Mobility, Education, Functional Activity Yennifer, Functional Strength, Group Therapy, Gait, Safety, Therapeutic Exercise, Transfers Treatment Duration: Dec 15, 2021 Frequency: At least 5 of 7 days/Wk (IRF) Estimated Hrs Per Day: 1.5 hours per day Patient and/or Family Agrees t: Yes Safety Risks/Education Patient Education: Transfer Techniques, Correct Positioning, Reviewed Don/Doff Brace, Safety Issues Teaching Recipient: Patient Teaching Methods: Demonstration, Discussion Response to Teaching: Reinforcement Needed Time/GCodes Time In: 1300 Time Out: 1330 Total Billed Treatment Time: 30 Total Billed Treatment 1 visit FA 30' NERISSA BENITEZ PT Dec 04, 2021 13:25
[2021-12-04] MEDS ORDERED: HYPOCHLOROUS ACID/NaCl (VASHE) 250 ML IR PRN (13:45)
[2021-12-04] MEDS ORDERED: VANCOMYCIN INJECTION 0.1 MG in NS (IVPB) 250 ML IV SCH (16:45)
--- NOTE | 2021-12-04 16:52 | Wound Care Assessment ---
Wound Care Assessment Date Seen by Provider: Dec 04, 2021 Time Seen by Provider: 16:45 Chief Complaint Lumbar spinal fusion incision dehiscence with probably infection HPI This pleasant 66 year old patient was admitted to [facility] following T12-L2 spinal fusion per Dr. Ash on 11-17-21. She is minimally ambulatory and is struggling with urinary retention as well. Her surgery was a result of fall with subsequent T12 compression fracture with high risk spinal stenosis. She is noted to have a new leukocytosis with significant erythema in periwound of incision. There are 2 open areas to incision. Superiorly there is a segment with opening that is quite shallow (0.5cm) in depth. In the lumbar region there is an area of dehiscence which is 1.2 cm in depth with copious serosanguinous drainage. This does not probe to bone or hardware that I can appreciate but it is concerning with surrounding erythema/induration and new leukocytosis for infection. I did call to discuss with Dr. Ash's office. I would prefer to go ahead and start empiric broad spectrum antibiotics. They were in agreement and I will discuss with Dr. Santacruz and defer selection to her capable hands. 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 She will see neurosurgery on Saturday in follow up. Will defer imaging to their discretion. I will order ESR and CRP, however. Wound culture (off antibiotics) already obtained by nursing staff. Past Medical History: Admits Diabetes Type II Smoking Status: Never a Smoker Alcohol Use: Denies Use Exam Vital Signs Date Time Temp Pulse Resp B/P (MAP) Pulse Ox O2 Delivery O2 Flow Rate FiO2 12/04/21 09:00 Room Air 12/04/21 07:36 37.1 105 16 115/59 (77) 92 Capillary Refill : General Appearance: WD/WN, no apparent distress Cardiovascular: no edema Back: vertebral tenderness Extremities: no pedal edema Neurologic/Psychiatric: alert, normal mood/affect, oriented x 3 Skin: normal color, warm/dry Skin Problem Location: other (back) Skin Character: drainage (serosanguinous), erythema (especially in lumbar region surrounding area of dehiscence) Wound assessment: Total incision 17x0.3x1.2cm. Areas of dehiscence in both thoracic and lumbar regions. Deepest area in lumbar does not probe to bone/hardware. There is significant erythema and induration in periwound of this area as well. Results Laboratory Tests 12/03/21 16:48: Glucometer 167H 12/03/21 20:11: Glucometer 218H 12/04/21 07:30: White Blood Count 19.9H, Red Blood Count 4.32, Hemoglobin 11.9, Hematocrit 39, Mean Corpuscular Volume 90, Mean Corpuscular Hemoglobin 28, Mean Corpuscular Hemoglobin Concent 31L, Red Cell Distribution Width 14.3, Platelet Count 377, Mean Platelet Volume 10.5, Immature Granulocyte % (Auto) 1, Neutrophils (%) (Auto) 80H, Lymphocytes (%) (Auto) 9L, Monocytes (%) (Auto) 8, Eosinophils (%) (Auto) 1, Basophils (%) (Auto) 1, Neutrophils # (Auto) 16.0H, Lymphocytes # (Auto) 1.8, Monocytes # (Auto) 1.6H, Eosinophils # (Auto) 0.3, Basophils # (Auto) 0.1, Immature Granulocyte # (Auto) 0.2H, Neutrophils % (Manual) 83, Lymphocytes % (Manual) 10, Monocytes % (Manual) 7, Eosinophils % (Manual) 0, Basophils % (Manual) 0, Band Neutrophils 0, Blood Morphology Comment NORMAL, Sodium Level 138, Potassium Level 4.4, Chloride Level 98, Carbon Dioxide Level 27, Anion Gap 13, Blood Urea Nitrogen 16, Creatinine 1.26, Estimat Glomerular Filtration Rate 47, BUN/Creatinine Ratio 13, Glucose Level 178H, Calcium Level 9.6, Corrected Calcium 10.2H, Total Bilirubin 0.5, Aspartate Amino Transf (AST/SGOT) 10, Alanine Aminotransferase (ALT/SGPT) 12, Alkaline Phosphatase 157H , C-Reactive Protein High Sensitivity 6.42H, Total Protein 7.0, Albumin 3.3, Procalcitonin 0.09 12/04/21 11:01: Glucometer 257H 12/04/21 11:05: Urine Color ORANGE, Urine Clarity CLEAR, Urine pH 5.0, Urine Specific [place] 1.025H, Urine Protein 2+H, Urine Glucose (UA) 1+H, Urine Ketones TRACEH, Urine Nitrite POSITIVEH, Urine Bilirubin NEGATIVE, Urine Urobilinogen >=8.0, Urine Leukocyte Esterase TRACEH, Urine RBC (Auto) NEGATIVE, Urine RBC RARE, Urine WBC RARE, Urine Squamous Epithelial Cells NONE, Urine Crystals NONE, Urine Bacteria NEGATIVE, Urine Casts PRESENT, Urine Hyaline Casts RARE, Urine Mucus NEGATIVE, Urine Culture Indicated YES 12/04/21 15:32: Glucometer 256H Assessment/Plan/Dx Assessment: 1. Surgical dehiscence with concern for cellulitis vs. infected hardware 2. H/o MRSA infections 3. DM2 4. Obesity 5. CKD stage 3 Plan: 1. Cleanse daily with vashe. Apply silver alginate surgical to wound bed and change daily for now. Follow up with neurosurgery as scheduled on Saturday 2. Wound culture obtained. Empiric broad spectrum antibiotics per primary team. 3. Good glycemic control advised 4. Diabetic diet, high protein 5. Close monitoring JOSSIE ANDINO MD Dec 04, 2021 16:52
[2021-12-04] MEDS ORDERED: PIPERACILLIN SODIUM/TAZOBACTAM 4.5 GM in NS (IVPB) 100 ML IV ONE (17:00)
[2021-12-04] MEDS ORDERED: VANCOMYCIN 2000 MG/NS 500 ML IVPB IV ONE ×2 (17:00)
[2021-12-04 18:00] VITALS: BP 100/52
[2021-12-04 19:34] VITALS: BP 105/55
[2021-12-04] MEDS: CATHETER FLUSH 10 ML SYR IVP SCH (20:58)
[2021-12-04] MEDS: PIPERACILLIN SODIUM/TAZOBACTAM 4.5 GM in NS (IVPB) 100 ML IV SCH (23:57)
[2021-12-05] MEDS: inSUlin ASPART (NovoLOG) 1 UNIT/0.01 ML (CHARGE PER UNIT) SC SCH ×4 (05:41→21:50)
--- NOTE | 2021-12-05 05:46 | PM&R Progress Note ---
Subjective HPI/CC On Admission Date Seen by Provider: Dec 05, 2021 Time Seen by Provider: 11:00 Subjective/Events-last exam 12/05/21: Spoke with neurosurgery who will see her in clinic tomorrow if it needs to be w ashed out they will admit her PICC line will be placed today Zosyn and Vancomycin initiated Drainage is significant 12/04/21: Patient doing well No fever WBC 19 so will add PCT and order in/out cath UA Wound care consulted 12/03/21: Patient doing well Family really cannot help her out of the house so we will need to explore assisted living or senior living placement Sugars are improved Transferring to chair and doing pretty well with that 12/02/2021: Patient doing about the same Nervous about going home Very frail emotionally causing issues with confidence Pain is improved No falls 12/01/2021: Pt doing well Discharge on Saturday Pain is well controlled Bowels are moving No more Hypoglycemia Appetite is poor 11/30/21: Pt is doing well Bowels moved on 11/26 Decreased appetite Blood sugars are in the 120's Overall doing very well 11/29/21: Pt is doing well Tylenol# 3 initiated with good results Post void residual is minimal Getting into chair with minimal assist Bowels moved on 11/2611/28/21: Pt having some hypoglycemia She did stand up and pivot with therapy Psych consult will be tomorrow at 1100 Holding oral hypoglycemic and NPH insulin 11/27/2021: Pt is doing well Incision looks good Hydrocodone will be used for pain Urecholine and Pyridium are helping post void residual Bowels moved yesterday 11/26/21: Patient feels better Pain controlled Urinary retention noted Pyridium TID prn Urology consult a possibility tomorrow 11/25/21: Patient feels about the same Flat affect noted Reassured BM+ Urinary retention so ordered Urecholine 11/24/2021: Pt is doing pretty well Has chronic nausea Dressing over the incision will be changed per Dr. Ash's orders Pain is 4-5 Appears to be very depressed so will monitor that closely Review of Systems General: Fatigue, Malaise Musculoskeletal: back pain Objective Exam Vital Signs Vital Signs Date Time Temp Pulse Resp B/P (MAP) Pulse Ox O2 Delivery O2 Flow Rate FiO2 12/05/21 20:20 Room Air 12/05/21 20:10 36.4 77 18 109/58 (75) 93 Capillary Refill : General Appearance: No Apparent Distress, WD/WN, Chronically ill HEENT: PERRL/EOMI, Normal ENT Inspection, Pharynx Normal Neck: Full Range of Motion, Normal Inspection, Non Tender, Supple, Carotid Bruit Respiratory: Chest Non Tender, Lungs Clear, Normal Breath Sounds, No Accessory Muscle Use, No Respiratory Distress Cardiovascular: Regular Rate, Rhythm, No Edema, No Gallop, No JVD, No Murmur, Normal Peripheral Pulses Gastrointestinal: Normal Bowel Sounds, No Organomegaly, No Pulsatile Mass, Non Tender, Soft Back: CVA Tenderness (L), CVA Tenderness (R), Decreased Range of Motion, Muscle Spasm, Vertebral Tenderness Extremity: Normal Capillary Refill, Normal Inspection, Normal Range of Motion (Except lower extremities), Non Tender, No Calf Tenderness, No Pedal Edema Neurologic/Psychiatric: Alert, Oriented x3, septic tank servicer II-XII Norm as Tested, Depr essed Affect, Motor Weakness (Lower extremities severe weakness) Skin: Normal Color, Warm/Dry Lymphatic: No Adenopathy Results/Procedures Lab Laboratory Tests 12/05/21 09:15 Patient resulted labs reviewed. FIM Transfers Therapy Code Descriptions/Definitions Functional [place] Measure: 0=Not Assessed/NA 4=Minimal Assistance 1=Total Assistance 5=Supervision or Setup 2=Maximal Assistance 6=Modified [place] 3=Moderate Assistance 7=Complete IndependenceSCALE: Activities may be completed with or without assistive devices. 3-Mdcrxhtegv-buckpvo completes the activity by him/herself with no assistance from a helper. 5-Set-up or Clean-up Assistance-helper sets up or cleans up; patient completes activity. [place] assists only prior to or following the activity. 4-Supervision or Touching Assistance-helper provides verbal cues and/or touching/steadying and/or contact guard assistance as patient completes activity. Assistance may be provided throughout the activity or intermittently. 3-Partial/Moderate Assistance-helper does LESS THAN HALF the effort. [place] lifts, holds or supports trunk or limbs, but provides less than half the effort. 2-Substantial/Maximal Assistance-helper does MORE THAN HALF the effort. [place] lifts or holds trunk or limbs and provides more than half the effort. 0-Lnxngmews-besgtw does ALL the effort. Patient does none of the effort to complete the activity. Or, the assistance of 2 or more helpers is required for the patient to complete the activity. If activity was not attempted, code reason: 7-Patient Refused. 9-Not Applicable-not attempted and the patient did not perform the activity before the current illness, exacerbation or injury. 10-Not Attempted due to Environmental Limitations-(lack of equipment, weather restraints, etc.). 88-Not Attempted due to Medical Conditions or Safety Concerns. Roll Left to Right (QC): 3 Sit to Lying (QC): 3 Sit to Stand (QC): 3 Chair/Bhh-st-Mmtyt Xfer(QC): 3 Car Transfer (QC): 1 Gait Training Does the Patient Walk?: No and Walking Goal IS indicated Distance: 10', 15', 20' Walk 10 feet (QC): 3 Walk 50 ft with 2 Turns(QC): 88 Walk 150 ft (QC): 88 Walking 10ft/uneven surface-QC: 88 Gait Persons Needed: 1 Gait Assistive Device: FWW Wheelchair Training Does the Pt Use a Wheelchair?: Yes Distance: 100'x2 Wheel 50 ft with 2 turns (QC): 3 Wheel 150 ft (QC): 5 Type of Wheelchair: Manual Stair Training 1 Step (curb) (QC): 88 4 Steps (QC): 88 12 Steps (QC): 88 Balance Picking up an Object (QC): 88 ADL-Treatment Eating (QC): 6 Oral Hygiene (QC): 6 Bathing Location: L Arm, R Arm, L Upper Leg, R Upper Leg, L Lower Leg (including foot), R Lower Leg (including foot), Chest, Abdomen, Perineal Area Shower/Bathe Self (QC): 4 (v/c's required for sequencing and maintaining back precautions. 100% seated on SC.) Upper Body Dressing (QC): 3 (Mod A overall. Pt required help to donning shirt in back, Min A donning TLSO) Lower Body Dressing (QC): 1 (Assist x2 in stand. Pt required help threading BLE through brief and pants and hiking.) On/Off Footwear (QC): 3 (Mod A overall. Pt able to doff, assist to don with AE d/t fatigue and wet feet) Toileting Hygiene (QC): 1 (Assist x2 in standing to hike pants. Pt able to doff pants and clean periarea.) Toilet Transfer (QC): 1 (Assist x2 to get off toilet. ) Assessment/Plan Assessment and Plan Assess & Plan/Chief Complaint Assessment: Severe debility following T12 laminectomy with bilateral decompression with T10- T11, T11-T12, T12-L1, L1-L2 posterior lateral fusion requiring [employer] pedicle screws and local bone graft by Dr. Ash on 11/17/2021 at [facility] Severe debility History of depression and 96-hour hold due to suicidal ideation in the past 3 years ago Diabetes Anxiety Depression Hypertension Hypothyroidism MRSA infection Urinary retention 11/25/21 now resolved Hypoglycemia requiring adjustments in meds 11/28 Leukocytosis Plan: Pain control Supportive snf meds Fall risk Bowel regimen 11/24/21: Monitor closely Pain management Monitor BP 11/25/21: Monitor closely Pain mngt Urecholine 11/26/21: Pyridium Monitor pain 11/27/2021: Continue bladder meds Supportive care 11/28/21: Monitor closely Hold OHA and NPH 11/29/21: Monitor glucose Pain control 11/30/21: Monitor BP Monitor glucose 12/01/21: Monitor glucose Supportive care Add back insulin 12/02/2021: Continue aggressive rehab Monitor labile sugars 12/03/21: Inquire with when anaya should be removed Needs senior living placement or assisted living 12/04/21: In/Out cath Monitor wbc PCT normal 12/05/21: Monitor closely DC tomorrow (1) S/P spinal fusion ANA GARCIA DO Dec 05, 2021 05:46
[2021-12-05] MEDS: CATHETER FLUSH 10 ML SYR IVP SCH ×3 (05:55→21:50)
[2021-12-05] MEDS: LEVOTHYROXINE 100 MCG (LEVOTHROID) TAB PO SCH (05:55)
[2021-12-05] MEDS: APAP 300 MG/CODEINE 30 MG (TYLENOL #3) TAB PO PRN ×4 (05:56→21:50)
[2021-12-05] MEDS: BETHANECHOL 25 MG (URECHOLINE) TAB PO SCH ×3 (06:00→17:15)
[2021-12-05] MEDS: PIPERACILLIN SODIUM/TAZOBACTAM 4.5 GM in NS (IVPB) 100 ML IV SCH ×3 (06:00→23:55)
[2021-12-05 07:30] VITALS: BP 136/63
[2021-12-05] MEDS: buPROPion SR 150 MG (WELLBUTRIN SR) TAB PO SCH ×2 (07:51→21:50)
[2021-12-05] MEDS: PHENAZOPYRIDINE 100 MG (PYRIDIUM) TABLET PO SCH ×3 (07:51→17:15)
[2021-12-05] MEDS: FLUoxetine HCL 20 MG (PROzac) CAP PO SCH (07:52)
[2021-12-05] MEDS: GABAPENTIN 300 MG (NEURONTIN) CAP PO SCH ×3 (07:52→21:50)
--- NOTE | 2021-12-05 09:02 | Occupational Ther Daily Note ---
OT Current Status-Daily Note Subjective Pt laying in bed prior to OT tx. Pt reports having trouble with seated and standing balance d/t weakness, but is agreeable to tx. Mental Status/Objective Patient Orientation: Person, Place, Situation Attachments: IV ADL-Treatment Therapy Code Descriptions/Definitions Functional [place] Measure: 0=Not Assessed/NA 4=Minimal Assistance 1=Total Assistance 5=Supervision or Setup 2=Maximal Assistance 6=Modified [place] 3=Moderate Assistance 7=Complete IndependenceSCALE: Activities may be completed with or without assistive devices. 3-Ykoxlieskg-vogcabb completes the activity by him/herself with no assistance from a helper. 5-Set-up or Clean-up Assistance-helper sets up or cleans up; patient completes activity. [place] assists only prior to or following the activity. 4-Supervision or Touching Assistance-helper provides verbal cues and/or touching/steadying and/or contact guard assistance as patient completes activity. Assistance may be provided throughout the activity or intermittently. 3-Partial/Moderate Assistance-helper does LESS THAN HALF the effort. [place] lifts, holds or supports trunk or limbs, but provides less than half the effort. 2-Substantial/Maximal Assistance-helper does MORE THAN HALF the effort. [place] lifts or holds trunk or limbs and provides more than half the effort. 4-Jvvkmweso-itwlkt does ALL the effort. Patient does none of the effort to complete the activity. Or, the assistance of 2 or more helpers is required for the patient to complete the activity. If activity was not attempted, code reason: 7-Patient Refused. 9-Not Applicable-not attempted and the patient did not perform the activity before the current illness, exacerbation or injury. 10-Not Attempted due to Environmental Limitations-(lack of equipment, weather restraints, etc.). 88-Not Attempted due to Medical Conditions or Safety Concerns. Other Treatment Pt laying in bed prior to tx. Pt required Mod A to log roll from supine to seated EOB, SBA--min A for seated balance while donning TLSO brace. OT donned socks and pants in supine d/t pt weakness and time constraint. Pt transferred from elevated bed to w/c with FWW, CGA. Pt pushed to therapy gym to participated in seated functional activities that focused on increasing BUE AROM and strength and activity tolerance. Pt completed all four rows on nuts and bolts activity (x16 total), and completed the ring arc with 1lb weight on R hand (2 sets of 12 rings with each UE). Pt required RB between activities and one RB while completing the arc ring with LUE. Pt pushed back to room and transferred from w/c to bed with FWW, Min A. Post tx, pt left in bed with call light in reach and all needs met. Education OT Patient Education: Correct positioning, Energy conservation, Exercise program, Home exercise program, Instructions don/doff splint/brace, Modified ADL techniques, Progress toward Goal/Update tx plan, Purpose of tx/functional activities, Reviewed precautions, Rehab process, Safety issues, Transfer techniques Teaching Recipient: Patient Teaching Methods: Discussion Response to Teaching: Verbalize Understanding OT Short Term Goals Short Term Goals Time Frame: Dec 08, 2021 Toileting hygiene: 3 Shower/bathe self: 3 Upper body dressin Lower body dressin Putting on/taking off footwear: 3 OT [facility] Goals [facility] Goals Time Frame: Dec 22, 2021 Eating (QC): 6 Oral Hygiene (QC): 6 Toileting Hygiene (QC): 4 Shower/Bathe Self (QC): 5 (bed level sponge bath) Upper Body Dressing (QC): 5 (bed level) Lower Body Dressing (QC): 4 On/Off Footwear (QC): 4 Additional Goals: 1-Demonstrate ADL Tasks, 2-Verbalize Understanding, 3- ImproveStrength/Yennifer 1=Demonstrate adherence to instructed precautions during ADL tasks. 2=Patient will verbalize/demonstrate understanding of assistive devices/modifications for ADL. 3=Patient will improve strength/tolerance for activity to enable patient to perform ADL's. OT Education/Plan Problem List/Assessment Assessment: Decreased Activ Tolerance, Decreased UE Strength, Impaired Bed Mobility, Impaired Coordination, Impaired Funct Balance, Impaired I ADL's, Impaired Self-Care Skills, Restricted Funct UE ROM Discharge Recommendations Plan/Recommendations: Continue POC Treatment Plan/Plan of Care Patient would benefit from OT for education, treatment and training to promote independence in ADL's, mobility, safety and/or upper extremity function for ADL's. Plan of Care: ADL Retraining, Cognitive Retraining, Concurrent Therapy, Functional Mobility, Group Exercise/Act as Ind Treatment Duration: Nov 24, 2021 Frequency: 5 times per week Estimated Hrs Per Day: 1 hour per day Rehab Potential: Fair Time/GCodes Start Time: 08:00 Stop Time: 09:00 Total Time Billed (hr/min): 60 Billed Treatment Time 1, FA 4 (60') RHYS MENEZES OT Dec 05, 2021 09:01
[2021-12-05 09:24] LABS: BASOPHILS # (AUTO) 0.1 10^3/uL (0.0-0.1); BASOPHILS % (AUTO) 1 % (0-10); EOSINOPHILS # (AUTO) 0.3 10^3/uL (0.0-0.3); EOSINOPHILS % (AUTO) 2 % (0-10); HEMATOCRIT 36 % (35-52); HEMOGLOBIN 11.1 g/dL (11.5-16.0); LYMPHOCYTES # (AUTO) 1.8 10^3/uL (1.0-4.0); LYMPHOCYTES % (AUTO) 9 % (12-44); MEAN CORPUSCULAR HEMOGLOBIN 28 pg (25-34); MEAN CORPUSCULAR HGB CONC 31 g/dL (32-36); MEAN CORPUSCULAR VOLUME 90 fL (80-99); MEAN PLATELET VOLUME 10.5 fL (9.0-12.2); MONOCYTES # (AUTO) 1.5 10^3/uL (0.0-1.0); MONOCYTES % (AUTO) 8 % (0-12); NEUTROPHILS # (AUTO) 15.3 10^3/uL (1.8-7.8); NEUTROPHILS % (AUTO) 80 % (42-75); PLATELET COUNT 340 10^3/uL (130-400); WHITE BLOOD COUNT 19.2 10^3/uL (4.3-11.0)
[2021-12-05 09:44] LABS: ALBUMIN 3.1 GM/DL (3.2-4.5); BILIRUBIN,TOTAL 0.7 MG/DL (0.1-1.0); CALCIUM 9.2 MG/DL (8.5-10.1); CREATININE SERUM 1.55 MG/DL (0.60-1.30); POTASSIUM 4.5 MMOL/L (3.6-5.0); TOTAL PROTEIN 6.6 GM/DL (6.4-8.2)
[2021-12-05] MEDS: DOCUSATE SODIUM 100 MG (COLACE) CAP PO SCH ×2 (10:07→19:37)
[2021-12-05] MEDS: polyethylene glycoL POWDER 17 GM (MIRALAX) PACK PO SCH ×2 (10:09→19:37)
[2021-12-05] MEDS: SENNA W/DOCUSATE (SENOKOT S) TABLET PO SCH ×2 (10:09→19:38)
--- NOTE | 2021-12-05 11:37 | Physical Therapy Daily Note ---
PT Daily Note-Current Subjective Patient in bed pre tx, agrees to PT, has 5/10 pain in low back. Appearance Patient on commode post tx with nurse call, nurse in room also. Mental Status Patient Orientation: Person, Place, Situation TLSO Transfers SCALE: Activities may be completed with or without assistive devices. 8-Fwfwwnjuaj-pfnjksb completes the activity by him/herself with no assistance from a helper. 5-Set-up or Clean-up Assistance-helper sets up or cleans up; patient completes activity. [place] assists only prior to or following the activity. 4-Supervision or Touching Assistance-helper provides verbal cues and/or touching/steadying and/or contact guard assistance as patient completes activity. Assistance may be provided throughout the activity or intermittently. 3-Partial/Moderate Assistance-helper does LESS THAN HALF the effort. [place] lifts, holds or supports trunk or limbs, but provides less than half the effort. 2-Substantial/Maximal Assistance-helper does MORE THAN HALF the effort. [place] l ifts or holds trunk or limbs and provides more than half the effort. 2-Xayfzqzzz-eifgzj does ALL the effort. Patient does none of the effort to complete the activity. Or, the assistance of 2 or more helpers is required for the patient to complete the activity. If activity was not attempted, code reason: 7-Patient Refused. 9-Not Applicable-not attempted and the patient did not perform the activity before the current illness, exacerbation or injury. 10-Not Attempted due to Environmental Limitations-(lack of equipment, weather restraints, etc.). 88-Not Attempted due to Medical Conditions or Safety Concerns. Roll Left & Right (QC): 4 Sit to Lying (QC): 3 Lying to Sitting/Side of Bed(Q: 4 Sit to Stand (QC): 3 Chair/Now-ut-Tqzdb Xfer(QC): 3 Toilet Transfer (QC): 3 Car Transfer (QC): 3 Patient performs rolling with SBA, supine to sit SBA, sit to supine mod assist, sit <-> stand min assist, transfers min assist, car transfer mod assist. Patient needs cues for positioning and safety. Sometimes help guiding walker. Weight Bearing Full Weight Bearing Full Weight Bearing Gait Training Distance: 15', 10'x2 Walk 10 feet (QC): 3 Walk 50 ft with 2 Turns(QC): 88 Walk 150 ft (QC): 88 Walking 10ft/uneven surface-QC: 88 Gait Persons Needed: 1 Gait Assistive Device: FWW Patient can ambulate 15' with a rolling walker with min assist, she needs assist guiding walker, is shaky, decreased coordination in LE's, bears a lot of weight through her arms. Wheelchair Training Does the Pt Use a Wheelchair?: Yes Wheel 50 ft with 2 turns (QC): 3 Type of Wheelchair: Manual 100' min assist, needs assist around obstacles and to turn in doorways Stair Training 1 Step (curb) (QC): 88 4 Steps (QC): 88 12 Steps (QC): 88 Balance Picking up an Object (QC): 88 Exercises NuStep Minutes: 15 NuStep Workload: 4 (BLE used only) Treatments bed mobility and transfers, ambulation, WC mobility, functional strengthening Assessment Current Status: Fair Progress improved sit to stand, slowly improving LE strength PT Short Term Goals Short Term Goals Time Frame: Dec 01, 2021 Roll Left & Right: 4 Sit to lyin (Nell) Lying to sitting on side of be: 3 (Nell) Sit to stand: 3 (modA) Chair/kva-gh-hhzlx transfer: 4 (CGA) Walk 10 feet: 4 (CGA) PT [employer] Goals Mcfp Goals PT Mcfp Goals Time Frame: Dec 15, 2021 Roll Left & Right (QC): 6 Sit to Lying (QC): 4 (SBA) Lying-Sitting on Side/Bed(QC): 4 (SBA) Sit to Stand (QC): 3 (Nell) Chair/Dsj-px-Ewdmg Xfer(QC): 4 (SBA) Toilet Transfer (QC): 4 (SBA) Car Transfer (QC): 3 (Nell) Does the Patient Walk: Yes Walk 10 feet (QC): 4 (SBA) Walk 50ft with 2 Turns (QC): 4 (SBA) Walk 150 ft (QC): 88 Walking 10ft on Uneven Surface: 4 (CGA) 1 Step (curb) (QC): 88 4 Steps (QC): 88 12 Steps (QC): 88 Picking up an Object (QC): 4 Wheel 50 feet with 2 turns (QC: 6 Wheel 150 feet: 6 PT Plan Problem List Problem List: Activity Tolerance, Functional Strength, Safety, Balance, Gait, T ransfer, Bed Mobility, ROM Treatment/Plan Treatment Plan: Continue Plan of Care Treatment Plan: Bed Mobility, Education, Functional Activity Yennifer, Functional Strength, Group Therapy, Gait, Safety, Therapeutic Exercise, Transfers Treatment Duration: Dec 15, 2021 Frequency: At least 5 of 7 days/Wk (IRF) Estimated Hrs Per Day: 1.5 hours per day Patient and/or Family Agrees t: Yes Safety Risks/Education Patient Education: Gait Training, Transfer Techniques, Reviewed Precautions, Correct Positioning, W/C Management, Reviewed Don/Doff Brace, Safety Issues Teaching Recipient: Patient Teaching Methods: Demonstration, Discussion Response to Teaching: Reinforcement Needed Time/GCodes Time In: 1100 Time Out: 1200 Total Billed Treatment Time: 60 Total Billed Treatment 1 visit EX 15' FA 45' NERISSA BENITEZ PT Dec 05, 2021 11:37
[2021-12-05] MEDS: ENOXAPARIN 40 MG/0.4 ML (LOVENOX) SYR SC SCH (12:37)
[2021-12-05] MEDS: ONDANSETRON 4 MG (ZOFRAN) ORAL DISSOLVE TAB PO PRN (12:39)
--- NOTE | 2021-12-05 14:20 | Occupational Ther Daily Note ---
OT Current Status-Daily Note Subjective Pt resting in bed prior to tx. Pt agreeable to tx. Mental Status/Objective Patient Orientation: Person, Place, Situation ADL-Treatment Therapy Code Descriptions/Definitions Functional Christian Measure: 0=Not Assessed/NA 4=Minimal Assistance 1=Total Assistance 5=Supervision or Setup 2=Maximal Assistance 6=Modified Christian 3=Moderate Assistance 7=Complete IndependenceSCALE: Activities may be completed with or without assistive devices. 1-Etlicudpow-eqctryb completes the activity by him/herself with no assistance from a helper. 5-Set-up or Clean-up Assistance-helper sets up or cleans up; patient completes activity. [place] assists only prior to or following the activity. 4-Supervision or Touching Assistance-helper provides verbal cues and/or touching/steadying and/or contact guard assistance as patient completes activity. Assistance may be provided throughout the activity or intermittently. 3-Partial/Moderate Assistance-helper does LESS THAN HALF the effort. [place] lifts, holds or supports trunk or limbs, but provides less than half the effort. 2-Substantial/Maximal Assistance-helper does MORE THAN HALF the effort. [place] lifts or holds trunk or limbs and provides more than half the effort. 8-Ffnrwlzvb-tzhpiy does ALL the effort. Patient does none of the effort to complete the activity. Or, the assistance of 2 or more helpers is required for the patient to complete the activity. If activity was not attempted, code reason: 7-Patient Refused. 9-Not Applicable-not attempted and the patient did not perform the activity before the current illness, exacerbation or injury. 10-Not Attempted due to Environmental Limitations-(lack of equipment, weather restraints, etc.). 88-Not Attempted due to Medical Conditions or Safety Concerns. Oral Hygiene (QC): 6 (seated at sink) Upper Body Dressing (QC): 3 (Min A overall. Pt needed help pulling shirt down in back and v/c's to safely doff shirt and sequencing to don TLSO brace) Other Treatment Pt resting in bed prior to tx. Pt log rolled from supine to seated EOB, Min A. Pt completed UBD seated EOB, min to mod A needed for seated balance. Pt transferred seated EOB to w/c with FWW, CGA, then was pushed to bathroom to complete oral hygiene and grooming tasks, IND seated in w/c. Pt pushed to therapy gym to participate in seated functional activities focused on increased BUE strength and activity tolerance, wearing 1lb R wrist weight. Pt pushed back to room and transferred to recliner with FWW, Min A. Post tx, pt left in recliner with call light in reach and needs met. Education OT Patient Education: Correct positioning, Energy conservation, Exercise program, Instructions don/doff splint/brace, Modified ADL techniques, Progress toward Goal/Update tx plan, Purpose of tx/functional activities, Reviewed precautions, Rehab process, Safety issues, Transfer techniques, W/C management Teaching Recipient: Patient Teaching Methods: Demonstration, Discussion Response to Teaching: Verbalize Understanding, Return Demonstration OT Short Term Goals Short Term Goals Time Frame: Dec 08, 2021 Toileting hygiene: 3 Shower/bathe self: 3 Upper body dressin Lower body dressin Putting on/taking off footwear: 3 OT Medical Delivery Driver Goals Detention Goals Time Frame: Dec 22, 2021 Eating (QC): 6 Oral Hygiene (QC): 6 Toileting Hygiene (QC): 4 Shower/Bathe Self (QC): 5 (bed level sponge bath) Upper Body Dressing (QC): 5 (bed level) Lower Body Dressing (QC): 4 On/Off Footwear (QC): 4 Additional Goals: 1-Demonstrate ADL Tasks, 2-Verbalize Understanding, 3- ImproveStrength/Yennifer 1=Demonstrate adherence to instructed precautions during ADL tasks. 2=Patient will verbalize/demonstrate understanding of assistive devices/modifications for ADL. 3=Patient will improve strength/tolerance for activity to enable patient to perform ADL's. OT Education/Plan Problem List/Assessment Assessment: Decreased Activ Tolerance, Decreased Safety Aware, Decreased UE Strength, Impaired Bed Mobility, Impaired Coordination, Impaired Funct Balance, Impaired I ADL's, Impaired Self-Care Skills, Restricted Funct UE ROM Discharge Recommendations Plan/Recommendations: Continue POC Treatment Plan/Plan of Care Patient would benefit from OT for education, treatment and training to promote independence in ADL's, mobility, safety and/or upper extremity function for ADL's. Plan of Care: ADL Retraining, Cognitive Retraining, Concurrent Therapy, Functional Mobility, Group Exercise/Act as Ind Treatment Duration: Nov 24, 2021 Frequency: 5 times per week Estimated Hrs Per Day: 1 hour per day Rehab Potential: Fair Time/GCodes Start Time: 13:30 Stop Time: 14:00 Total Time Billed (hr/min): 30 Billed Treatment Time 1, ADL (15'), FA (15') RHYS MENEZES OT Dec 05, 2021 14:20
--- NOTE | 2021-12-05 16:12 | Physical Therapy Daily Note ---
PT Daily Note-Current Subjective Pt sitting in recliner upon arrival. Pt agrees to PT but asks to use BR. SW arrives before transfer and reviews d/c possibilities for tomorrow. Mental Status Patient Orientation: Person, Place, Situation Attachments: Other-See Comments (TLSO Brace) Transfers SCALE: Activities may be completed with or without assistive devices. 3-Rzzcanphmx-obxxudd completes the activity by him/herself with no assistance from a helper. 5-Set-up or Clean-up Assistance-helper sets up or cleans up; patient completes activity. [place] assists only prior to or following the activity. 4-Supervision or Touching Assistance-helper provides verbal cues and/or touching/steadying and/or contact guard assistance as patient completes activity. Assistance may be provided throughout the activity or intermittently. 3-Partial/Moderate Assistance-helper does LESS THAN HALF the effort. [place] lifts, holds or supports trunk or limbs, but provides less than half the effort. 2-Substantial/Maximal Assistance-helper does MORE THAN HALF the effort. [place] lifts or holds trunk or limbs and provides more than half the effort. 1-Nnwsiiwam-nystii does ALL the effort. Patient does none of the effort to complete the activity. Or, the assistance of 2 or more helpers is required for the patient to complete the activity. If activity was not attempted, code reason: 7-Patient Refused. 9-Not Applicable-not attempted and the patient did not perform the activity before the current illness, exacerbation or injury. 10-Not Attempted due to Environmental Limitations-(lack of equipment, weather restraints, etc.). 88-Not Attempted due to Medical Conditions or Safety Concerns. Sit to Stand (QC): 3 Toilet Transfer (QC): 3 Weight Bearing Full Weight Bearing Full Weight Bearing Gait Training Does the Patient Walk?: Yes Distance: 15' Walk 10 feet (QC): 3 Gait Persons Needed: 1 Gait Assistive Device: FWW Wheelchair Training Does the Pt Use a Wheelchair?: Yes Type of Wheelchair: Manual Treatments SW visits w/pt to start tx. Pt then stands from recliner and amb. to BR. Pt is able to complete pericare but needs Min-Mod A for donning/doffing brief and pants. Pt begins to amb. out of BR when pt's posture is kyphotic and B knees buckle. Pt melts to knees then HAIRPIECE STYLIST assists pt to sit back on bottom. Nurse arrives at this point and PT assists HAIRPIECE STYLIST to lift pt back to [facility]. Pt then stands from [facility] w/FWW and sits EOB. HAIRPIECE STYLIST assists lifting B LE into bed. Pt is adjusted to comfort with all needs met, call light in hand. Assessment Current Status: Fair Progress Pt has improved with mobility and strength but tires easily and needs frequent RB as well as back and knees melt. PT Short Term Goals Short Term Goals Time Frame: Dec 01, 2021 Roll Left & Right: 4 Sit to lyin (Nell) Lying to sitting on side of be: 3 (Nell) Sit to stand: 3 (modA) Chair/vnn-iu-jafby transfer: 4 (CGA) Walk 10 feet: 4 (CGA) PT Bench Scientist Goals Snf Goals PT Snf Goals Time Frame: Dec 15, 2021 Roll Left & Right (QC): 6 Sit to Lying (QC): 4 (SBA) Lying-Sitting on Side/Bed(QC): 4 (SBA) Sit to Stand (QC): 3 (Nell) Chair/Jus-fr-Szvrt Xfer(QC): 4 (SBA) Toilet Transfer (QC): 4 (SBA) Car Transfer (QC): 3 (Nell) Does the Patient Walk: Yes Walk 10 feet (QC): 4 (SBA) Walk 50ft with 2 Turns (QC): 4 (SBA) Walk 150 ft (QC): 88 Walking 10ft on Uneven Surface: 4 (CGA) 1 Step (curb) (QC): 88 4 Steps (QC): 88 12 Steps (QC): 88 Picking up an Object (QC): 4 Wheel 50 feet with 2 turns (QC: 6 Wheel 150 feet: 6 PT Plan Problem List Problem List: Activity Tolerance, Functional Strength Treatment/Plan Treatment Plan: Continue Plan of Care Treatment Plan: Bed Mobility, Education, Functional Activity Yennifer, Functional Strength, Group Therapy, Gait, Safety, Therapeutic Exercise, Transfers Treatment Duration: Dec 15, 2021 Frequency: At least 5 of 7 days/Wk (IRF) Estimated Hrs Per Day: 1.5 hours per day Patient and/or Family Agrees t: Yes Safety Risks/Education Patient Education: Transfer Techniques, Correct Positioning Teaching Recipient: Patient Teaching Methods: Discussion Response to Teaching: Verbalize Understanding Time/GCodes Time In: 1430 Time Out: 1500 Total Billed Treatment Time: 30 Total Billed Treatment 1, FA (20m) & GT (10m) NIC MAX HAIRPIECE STYLIST Dec 05, 2021 16:12
[2021-12-05] MEDS ORDERED: VANCOMYCIN 1500 MG/NS 500 ML IVPB IV SCH ×2 (17:00)
[2021-12-05 20:10] VITALS: BP 109/58
[2021-12-06] MEDS ORDERED: BACL10TA PO (06:13)
[2021-12-06] MEDS ORDERED: [UNRECOGNIZED DRUG - CODE] MC (06:13)
[2021-12-06] MEDS ORDERED: FLUO40CA PO (06:13)
[2021-12-06] MEDS ORDERED: ACET-11 PO (06:13)
[2021-12-06] MEDS ORDERED: VANC1.5V3 IV (06:13)
[2021-12-06] MEDS ORDERED: BUPR150T9 PO (06:13)
[2021-12-06] MEDS ORDERED: CARV12.53 PO (06:13)
[2021-12-06] MEDS ORDERED: BETH25TA2 PO (06:13)
[2021-12-06] MEDS ORDERED: GABA300C PO (06:13)
[2021-12-06] MEDS ORDERED: ONDA4TAB11 PO (06:13)
[2021-12-06] MEDS ORDERED: ENOX40DI8 SC (06:13)
[2021-12-06] MEDS ORDERED: LEVO100T7 PO (06:13)
[2021-12-06] MEDS ORDERED: DICY10CA12 PO (06:13)
[2021-12-06] MEDS ORDERED: INSU100I14 SQ (06:13)
[2021-12-06] MEDS ORDERED: FLUO20CA48 PO (06:13)
--- NOTE | 2021-12-06 06:14 | Discharge Inst-Skilled Nursing ---
Discharge Inst-Skilled NF Reconcile Patient Problems Problems Reviewed?: Yes Patient Instructions Patient Problems: Spine infection Goal: [place] Consult/Follow Up/Orders Follow Up Appt.: PCP 1 week Skilled NF Admit to: Certification (SNF) I certify that SNF services are required to be given on an inpatient basis because of the above named patient's need for care home care on a continuing basis for the conditions(s) for which he/she was receiving inpatient hospital services prior to his/her transfer to the SNF. [facility] Facility Order: Nursing Services, Medical Biller/Coder-Evaluate & Treat, Physical Therapy-Evaluate & Treat Oxygen Delivery Method: Room Air Discharge Diet: ADA Diet Daily Activity as Tolerated: Yes Resuscitation Status: Full Code New & Resume Previous Orders New Medications: Insulin Aspart (Novolog Flexpen) 100 Unit/Ml (3 Ml) Solution 3 UNITS SQ AC, #1 EA [place], Insulin Disposable (Advocate Pen [place]) 29 Gauge X 1/2" Dis.needle EACH MC AC for Hyperglycemia, #100 Acetaminophen with Codeine (Acetaminophen-Cod #3 Tablet) 300 Mg-30 Mg Tablet 1 TAB PO Q6H PRN for PAIN-MODERATE (5-7), #30 TAB Baclofen (Baclofen) 10 Mg Tablet 10 MG PO Q8HR PRN for MUSCLE SPASMS, #60 TAB Bethanechol Chloride (Bethanechol Chloride) 25 Mg Tablet 25 MG PO AC, #90 TAB Dicyclomine HCl (Dicyclomine HCl) 10 Mg Capsule 10 MG PO TID PRN for ABDOMINAL PAIN, #60 CAP Enoxaparin Sodium (Enoxaparin Sodium) 40 Mg/0.4 Ml Syringe 40 MG SC Q24H, #30 SYRINGE Vancomycin HCl in Water (Vancomycin 1,500 mg/15Ml-Water) 1.5 Gram/15 Ml (100 Mg/Ml) Vial 1.5 GM IV DAILY, #42 EA Continued Medications: Bupropion HCl (Wellbutrin Sr) 150 Mg Tablet.er 150 MG PO BID, #60 TAB (This prescription has been renewed) Carvedilol (Carvedilol) 12.5 Mg Tablet 12.5 MG PO BID WITH MEALS, #60 TAB (This prescription has been renewed) Fluoxetine HCl (Fluoxetine HCl) 20 Mg Capsule 20 MG PO DAILY, #30 CAP (This prescription has been renewed) TAKES 20MG+40MG TOGETHER TO EQUAL 60MG DAILY Fluoxetine HCl (Fluoxetine HCl) 40 Mg Capsule 40 MG PO DAILY, #30 CAP (This prescription has been renewed) TAKES 20MG+40MG TOGETHER TO EQUAL 60MG DAILY Gabapentin (Neurontin) 300 Mg Capsule 600 MG PO DAILY, #90 CAP (This prescription has been renewed) TAKES 2 (300MG) CAPS Levothyroxine Sodium (Levothyroxine Sodium) 100 Mcg Tablet 100 MCG PO DAILY, #30 TAB (This prescription has been renewed) Ondansetron (Ondansetron Odt) 4 Mg Tab.rapdis 4 MG PO Q6 -8H PRN for NAUSEA/VOMITING-1ST LINE, #30 TAB (This prescription has been renewed) Discontinued Medications: Gabapentin (Neurontin) 300 Mg Capsule 900 MG PO 1800, CAP TAKES 3 (300MG) CAPS Glimepiride (Glimepiride) 2 Mg Tablet 2 MG PO DAILY W/BREAKFAST, TAB Insulin NPH Human Isophane (Novolin N) 100 Unit/Ml Vial 11 UNIT SQ HS, EA Beba Santacruz Dec 06, 2021 06:14 BEBA SANTACRUZ DO Dec 06, 2021 06:14
--- NOTE | 2021-12-06 06:15 | Discharge Summary ---
Diagnosis/Chief Complaint Date of Admission Nov 23, 2021 at 17:40 Date of Discharge Discharge Date: Dec 06, 2021 Discharge Diagnosis Assessment: Severe debility following T12 laminectomy with bilateral decompression with T10- T11, T11-T12, T12-L1, L1-L2 posterior lateral fusion requiring [employer] pedicle screws and local bone graft by Dr. Ash on 11/17/2021 at [facility] Post op lumbar spine incision infection with MRSA Severe debility History of depression and 96-hour hold due to suicidal ideation in the past 3 years ago Diabetes Anxiety Depression Hypertension Hypothyroidism MRSA infection Urinary retention 11/25/21 now resolved Hypoglycemia requiring adjustments in meds 11/28 Leukocytosis Plan: Pain control [facility] Fall risk Bowel regimen 11/24/21: Monitor closely Pain management Monitor BP 11/25/21: Monitor closely Pain mngt Urecholine 11/26/21: Pyridium Monitor pain 11/27/2021: Continue bladder meds Supportive care 11/28/21: Monitor closely Hold OHA and NPH 11/29/21: Monitor glucose Pain control 11/30/21: Monitor BP Monitor glucose 12/01/21: Monitor glucose Supportive care Add back insulin 12/02/2021: Continue aggressive rehab Monitor labile sugars 12/03/21: Inquire with when anaya should be removed Needs senior care placement or assisted living 12/04/21: In/Out cath Monitor wbc PCT normal 12/05/21: Monitor closely DC tomorrow (1) S/P spinal fusion Discharge Summary Discharge Physical Examination Allergies: Coded Allergies: No Known Drug Allergies (Unverified , 11/22/21) Vitals & I&Os Vital Signs Date Time Temp Pulse Resp B/P (MAP) Pulse Ox O2 Delivery O2 Flow Rate FiO2 12/06/21 09:46 Room Air 12/06/21 07:21 37.1 91 18 148/65 (92) 90 General Appearance: Alert, Oriented X3, Cooperative Respiratory: Clear to Auscultation Cardiovascular: Regular Rate Neuro: Normal Gait, Normal Speech, Strength at 5/5 X4 Ext Psych/Mental Status: Mental Status NL Hospital Course Was the Problem List Reviewed?: Yes Hospital course: patient had a lengthy course after moving from [facility] after emergent lumbar spine surgery due to compression fracture of T12 resulting in spinal nerve compression and compromising lower extremity neuro function. Patient required change of DM meds due to hypoglycemia and continued to have depression and apathy and poor appetite. Wound appeared to be inflammed and red so cultures obtained and wound care initiated by Dr Ellis and empiric abx initiated. MRSA was revealed on wound CX. Patient was arranged to see NSG in clinic and she was DC in stable condition but elevated wbc continued and she was ultimately admitted to [facility]. Labs (last 24 hrs) Laboratory Tests 11/23/21 21:01: Glucometer 275H 11/24/21 05:25: White Blood Count 10.8, Red Blood Count 3.93, Hemoglobin 11.1L, Hematocrit 35, Mean Corpuscular Volume 90, Mean Corpuscular Hemoglobin 28, Mean Corpuscular Hemoglobin Concent 31L, Red Cell Distribution Width 14.8H, Platelet Count 181, Mean Platelet Volume 13.0H, Immature Granulocyte % (Auto) 0, Neutrophils (%) (Auto) 67, Lymphocytes (%) (Auto) 15, Monocytes (%) (Auto) 13H, Eosinophils (%) (Auto) 4, Basophils (%) (Auto) 1, Neutrophils # (Auto) 7.3, Lymphocytes # (Auto) 1.6, Monocytes # (Auto) 1.5H, Eosinophils # (Auto) 0.4H, Basophils # (Auto) 0.1, Immature Granulocyte # (Auto) 0.0, Sodium Level 140, Potassium Level 4.0, Chloride Level 105, Carbon Dioxide Level 25, Anion Gap 10, Blood Urea Nitrogen 20H, Creatinine 0.93, Estimat Glomerular Filtration Rate 68, BUN/Creatinine Ratio 22, Glucose Level 158H, Calcium Level 8.7, Corrected Calcium 9.7, Total Bilirubin 0.5, Aspartate Amino Transf (AST/SGOT) 15, Alanine Aminotransferase (ALT/SGPT) < 6, Alkaline Phosphatase 108, Total Protein 5.6L, Albumin 2.8L 11/24/21 11:05: Glucometer 223H 11/24/21 16:09: Glucometer 150H 11/24/21 20:25: Glucometer 184H 11/25/21 05:56: Glucometer 122H 11/25/21 10:55: Glucometer 195H 11/25/21 15:42: Glucometer 71 11/25/21 20:51: Glucometer 203H 11/26/21 05:59: Glucometer 63L 11/26/21 06:45: Glucometer 96 11/26/21 10:57: Glucometer 103 11/26/21 15:33: Glucometer 162H 11/26/21 20:06: Glucometer 206H 11/27/21 05:11: Glucometer 87 11/27/21 06:56: White Blood Count 13.5H, Red Blood Count 4.21, Hemoglobin 11.8, Hematocrit 38, Mean Corpuscular Volume 90, Mean Corpuscular Hemoglobin 28, Mean Corpuscular Hemoglobin Concent 31L, Red Cell Distribution Width 14.4, Platelet Count 285, Mean Platelet Volume 11.6, Immature Granulocyte % (Auto) 0, Neutrophils (%) (Auto) 74, Lymphocytes (%) (Auto) 13, Monocytes (%) (Auto) 9, Eosinophils (%) (Auto) 3, Basophils (%) (Auto) 1, Neutrophils # (Auto) 10.0H, Lymphocytes # (Auto) 1.8, Monocytes # (Auto) 1.2H, Eosinophils # (Auto) 0.4H, Basophils # (Auto) 0.1, Immature Granulocyte # (Auto) 0.1, Sodium Level 142, Potassium Level 4.1, Chloride Level 103, Carbon Dioxide Level 24, Anion Gap 15H, Blood Urea Nitrogen 12, Creatinine 0.88, Estimat Glomerular Filtration Rate 73, BUN/Creatinine Ratio 14, Glucose Level 99, Calcium Level 9.6, Corrected Calcium 10.4H, Total Bilirubin 0.4, Aspartate Amino Transf (AST/SGOT) 15, Alanine Aminotransferase (ALT/SGPT) 11, Alkaline Phosphatase 103, Total Protein 6.6, Albumin 3.0L 11/27/21 10:54: Glucometer 142H 11/27/21 15:07: Glucometer 121H 11/27/21 22:02: Glucometer 146H 11/28/21 05:46: Glucometer 73 11/28/21 08:48: Glucometer 95 11/28/21 10:53: Glucometer 98 11/28/21 15:17: Glucometer 113H 11/28/21 20:17: Glucometer 155H 11/29/21 02:59: Glucometer 54*L 11/29/21 03:39: Glucometer 102 11/29/21 05:14: Glucometer 96 11/29/21 09:12: Glucometer 125H 11/29/21 10:48: Glucometer 123H 11/29/21 16:34: Glucometer 122H 11/29/21 20:44: Glucometer 223H 11/30/21 05:42: Glucometer 102 11/30/21 10:50: Glucometer 204H 11/30/21 15:32: Glucometer 230H 11/30/21 20:06: Glucometer 286H 12/01/21 05:27: Glucometer 130H 12/01/21 10:48: Glucometer 225H 12/01/21 16:32: Glucometer 229H 12/01/21 20:54: Glucometer 260H 12/02/21 01:54: Glucometer 141H 12/02/21 07:00: Glucometer 84 12/02/21 09:16: Glucometer 104 12/02/21 10:55: Glucometer 112H 12/02/21 15:29: Glucometer 143H 12/02/21 20:24: Glucometer 203H 12/03/21 06:13: Glucometer 153H 12/03/21 11:15: Glucometer 173H 12/03/21 16:48: Glucometer 167H 12/03/21 20:11: Glucometer 218H 12/04/21 05:44: Glucometer 209H 12/04/21 07:30: White Blood Count 19.9H, Red Blood Count 4.32, Hemoglobin 11.9, Hematocrit 39, Mean Corpuscular Volume 90, Mean Corpuscular Hemoglobin 28, Mean Corpuscular Hemoglobin Concent 31L, Red Cell Distribution Width 14.3, Platelet Count 377, Mean Platelet Volume 10.5, Immature Granulocyte % (Auto) 1, Neutrophils (%) (Auto) 80H, Lymphocytes (%) (Auto) 9L, Monocytes (%) (Auto) 8, Eosinophils (%) (Auto) 1, Basophils (%) (Auto) 1, Neutrophils # (Auto) 16.0H, Lymphocytes # (Auto) 1.8, Monocytes # (Auto) 1.6H, Eosinophils # (Auto) 0.3, Basophils # (Auto) 0.1, Immature Granulocyte # (Auto) 0.2H, Neutrophils % (Manual) 83, Lymphocytes % (Manual) 10, Monocytes % (Manual) 7, Eosinophils % (Manual) 0, Basophils % (Manual) 0, Band Neutrophils 0, Blood Morphology Comment NORMAL, Erythrocyte Sedimentation Rate 81H, Sodium Level 138, Potassium Level 4.4, Chloride Level 98, Carbon Dioxide Level 27, Anion Gap 13, Blood Urea Nitrogen 16, Creatinine 1.26, Estimat Glomerular Filtration Rate 47, BUN/Creatinine Ratio 13, Glucose Level 178H, Calcium Level 9.6, Corrected Calcium 10.2H, Total Bilirubin 0.5, Aspartate Amino Transf (AST/SGOT) 10, Alanine Aminotransferase (ALT/SGPT) 12, Alkaline Phosphatase 157H, C-Reactive Protein High Sensitivity 6.42H, Total Protein 7.0, Albumin 3.3, Procalcitonin 0.09 12/04/21 11:01: Glucometer 257H 12/04/21 11:05: Urine Color ORANGE, Urine Clarity CLEAR, Urine pH 5.0, Urine Specific [place] 1.025H, Urine Protein 2+H, Urine Glucose (UA) 1+H, Urine Ketones TRACEH, Urine Nitrite POSITIVEH, Urine Bilirubin NEGATIVE, Urine Urobilinogen >=8.0, Urine Leukocyte Esterase TRACEH, Urine RBC (Auto) NEGATIVE, Urine RBC RARE, Urine WBC RARE, Urine Squamous Epithelial Cells NONE, Urine Crystals NONE, Urine Bacteria NEGATIVE, Urine Casts PRESENT, Urine Hyaline Casts RARE, Urine Mucus NEGATIVE, Urine Culture Indicated YES 12/04/21 15:32: Glucometer 256H 12/04/21 20:19: Glucometer 199H 12/05/21 05:37: Glucometer 142H 12/05/21 09:15: White Blood Count 19.2H, Red Blood Count 3.99, Hemoglobin 11.1L, Hematocrit 36, Mean Corpuscular Volume 90, Mean Corpuscular Hemoglobin 28, Mean Corpuscular Hemoglobin Concent 31L, Red Cell Distribution Width 14.1, Platelet Count 340, Mean Platelet Volume 10.5, Immature Granulocyte % (Auto) 1, Neutrophils (%) (Auto) 80H, Lymphocytes (%) (Auto) 9L, Monocytes (%) (Auto) 8, Eosinophils (%) (Auto) 2, Basophils (%) (Auto) 1, Neutrophils # (Auto) 15.3H, Lymphocytes # (Auto) 1.8, Monocytes # (Auto) 1.5H, Eosinophils # (Auto) 0.3, Basophils # (Auto) 0.1, Immature Granulocyte # (Auto) 0.2H, Sodium Level 139, Potassium Level 4.5, Chloride Level 99, Carbon Dioxide Level 27, Anion Gap 13, Blood Urea Nitrogen 18, Creatinine 1.55H, Estimat Glomerular Filtration Rate 37, B UN/Creatinine Ratio 12, Glucose Level 280H, Calcium Level 9.2, Corrected Calcium 9.9, Total Bilirubin 0.7, Aspartate Amino Transf (AST/SGOT) 8, Alanine Aminotransferase (ALT/SGPT) 8, Alkaline Phosphatase 137H, Total Protein 6.6, Albumin 3.1L 12/05/21 10:49: Glucometer 260H 12/05/21 15:22: Glucometer 185H 12/05/21 20:17: Glucometer 206H 12/06/21 05:33: Glucometer 116H 12/06/21 06:40: White Blood Count 17.0H, Red Blood Count 3.90, Hemoglobin 10.8L, Hematocrit 35, Mean Corpuscular Volume 91, Mean Corpuscular Hemoglobin 28, Mean Corpuscular Hemoglobin Concent 31L, Red Cell Distribution Width 14.3, Platelet Count 353, Mean Platelet Volume 10.4, Immature Granulocyte % (Auto) 1, Neutrophils (%) (Auto) 77H, Lymphocytes (%) (Auto) 11L, Monocytes (%) (Auto) 7, Eosinophils (%) (Auto) 3, Basophils (%) (Auto) 1, Neutrophils # (Auto) 13.1H, Lymphocytes # (Auto) 1.8, Monocytes # (Auto) 1.2H, Eosinophils # (Auto) 0.5H, Basophils # (Auto) 0.1, Immature Granulocyte # (Auto) 0.2H, Sodium Level 142, Potassium Level 3.9, Chloride Level 102, Carbon Dioxide Level 26, Anion Gap 14, Blood Urea Nitrogen 13, Creatinine 1.15, Estimat Glomerular Filtration Rate 53, BUN/Creatinine Ratio 11, Glucose Level 124H, Calcium Level 9.1, Corrected Calcium 9.9, Total Bilirubin 0.4, Aspartate Amino Transf (AST/SGOT) 10, Alanine Aminotransferase (ALT/SGPT) 9, Alkaline Phosphatase 151H, Total Protein 6.5, Albumin 3.0L Microbiology 12/04/21 Blood Culture - Preliminary, Resulted No growth 12/04/21 Gram Stain - Final, Complete 12/04/21 Wound Culture - Final, Complete Staphylococcus aureus 12/04/21 Urine Culture - Final, Complete NO GROWTH Pending Labs Microbiology Date/Time Source Procedure Growth Status 12/04/21 16:50 Peripheral Lt Ac Blood Culture - Preliminary No growth Resulted 12/04/21 16:45 Peripheral Rt Ac Blood Culture - Preliminary No growth Resulted 12/04/21 13:00 Incision Back Gram Stain - Final Complete 12/04/21 13:00 Wound Culture - Final Staphylococcus aureus Complete 12/04/21 11:05 Urine Clean Catch Urine Culture - Final NO GROWTH Complete Laboratory Tests 11/23/21 21:01: Glucometer 275 11/24/21 05:25: White Blood Count 10.8, Red Blood Count 3.93, Hemoglobin 11.1, Hematocrit 35, Mean Corpuscular Volume 90, Mean Corpuscular Hemoglobin 28, Mean Corpuscular Hemoglobin Concent 31, Red Cell Distribution Width 14.8, Platelet Count 181, Mean Platelet Volume 13.0, Immature Granulocyte % (Auto) 0, Neutrophils (%) (Auto) 67, Lymphocytes (%) (Auto) 15, Monocytes (%) (Auto) 13, Eosinophils (%) ( Auto) 4, Basophils (%) (Auto) 1, Neutrophils # (Auto) 7.3, Lymphocytes # (Auto) 1.6, Monocytes # (Auto) 1.5, Eosinophils # (Auto) 0.4, Basophils # (Auto) 0.1, Immature Granulocyte # (Auto) 0.0, Sodium Level 140, Potassium Level 4.0, Chloride Level 105, Carbon Dioxide Level 25, Anion Gap 10, Blood Urea Nitrogen 20, Creatinine 0.93, Estimat Glomerular Filtration Rate 68, BUN/Creatinine Ratio 22, Glucose Level 158, Calcium Level 8.7, Corrected Calcium 9.7, Total Bilirubin 0.5, Aspartate Amino Transf (AST/SGOT) 15, Alanine Aminotransferase (ALT/SGPT) < 6, Alkaline Phosphatase 108, Total Protein 5.6, Albumin 2.8 11/24/21 11:05: Glucometer 223 11/24/21 16:09: Glucometer 150 11/24/21 20:25: Glucometer 184 11/25/21 05:56: Glucometer 122 11/25/21 10:55: Glucometer 195 11/25/21 15:42: Glucometer 71 11/25/21 20:51: Glucometer 203 11/26/21 05:59: Glucometer 63 11/26/21 06:45: Glucometer 96 11/26/21 10:57: Glucometer 103 11/26/21 15:33: Glucometer 162 11/26/21 20:06: Glucometer 206 11/27/21 05:11: Glucometer 87 11/27/21 06:56: White Blood Count 13.5, Red Blood Count 4.21, Hemoglobin 11.8, Hematocrit 38, Mean Corpuscular Volume 90, Mean Corpuscular Hemoglobin 28, Mean Corpuscular Hemoglobin Concent 31, Red Cell Distribution Width 14.4, Platelet Count 285, Mean Platelet Volume 11.6, Immature Granulocyte % (Auto) 0, Neutrophils (%) (Auto) 74, Lymphocytes (%) (Auto) 13, Monocytes (%) (Auto) 9, Eosinophils (%) (Auto) 3, Basophils (%) (Auto) 1, Neutrophils # (Auto) 10.0, Lymphocytes # (Auto) 1.8, Monocytes # (Auto) 1.2, Eosinophils # (Auto) 0.4, Basophils # (Auto) 0.1, Immature Granulocyte # (Auto) 0.1, Sodium Level 142, Potassium Level 4.1, Chloride Level 103, Carbon Dioxide Level 24, Anion Gap 15, Blood Urea Nitrogen 12, Creatinine 0.88, Estimat Glomerular Filtration Rate 73, BUN/Creatinine Ratio 14, Glucose Level 99, Calcium Level 9.6, Corrected Calcium 10.4, Total Bilirubin 0.4, Aspartate Amino Transf (AST/SGOT) 15, Alanine Aminotransferase (ALT/SGPT) 11, Alkaline Phosphatase 103, Total Protein 6.6, Albumin 3.0 11/27/21 10:54: Glucometer 142 11/27/21 15:07: Glucometer 121 11/27/21 22:02: Glucometer 146 11/28/21 05:46: Glucometer 73 11/28/21 08:48: Glucometer 95 11/28/21 10:53: Glucometer 98 11/28/21 15:17: Glucometer 113 11/28/21 20:17: Glucometer 155 11/29/21 02:59: Glucometer 54 11/29/21 03:39: Glucometer 102 11/29/21 05:14: Glucometer 96 11/29/21 09:12: Glucometer 125 11/29/21 10:48: Glucometer 123 11/29/21 16:34: Glucometer 122 11/29/21 20:44: Glucometer 223 11/30/21 05:42: Glucometer 102 11/30/21 10:50: Glucometer 204 11/30/21 15:32: Glucometer 230 11/30/21 20:06: Glucometer 286 12/01/21 05:27: Glucometer 130 12/01/21 10:48: Glucometer 225 12/01/21 16:32: Glucometer 229 12/01/21 20:54: Glucometer 260 12/02/21 01:54: Glucometer 141 12/02/21 07:00: Glucometer 84 12/02/21 09:16: Glucometer 104 12/02/21 10:55: Glucometer 112 12/02/21 15:29: Glucometer 143 12/02/21 20:24: Glucometer 203 12/03/21 06:13: Glucometer 153 12/03/21 11:15: Glucometer 173 12/03/21 16:48: Glucometer 167 12/03/21 20:11: Glucometer 218 12/04/21 05:44: Glucometer 209 12/04/21 07:30: White Blood Count 19.9, Red Blood Count 4.32, Hemoglobin 11.9, Hematocrit 39, Mean Corpuscular Volume 90, Mean Corpuscular Hemoglobin 28, Mean Corpuscular Hemoglobin Concent 31, Red Cell Distribution Width 14.3, Platelet Count 377, Mean Platelet Volume 10.5, Immature Granulocyte % (Auto) 1, Neutrophils (%) (Auto) 80, Lymphocytes (%) (Auto) 9, Monocytes (%) (Auto) 8, Eosinophils (%) (Auto) 1, Basophils (%) (Auto) 1, Neutrophils # (Auto) 16.0, Lymphocytes # (Auto) 1.8, Monocytes # (Auto) 1.6, Eosinophils # (Auto) 0.3, Basophils # (Auto) 0.1, Immature Granulocyte # (Auto) 0.2, Neutrophils % (Manual) 83, Lymphocytes % (Manual) 10, Monocytes % (Manual) 7, Eosinophils % (Manual) 0, Basophils % (Manual) 0, Band Neutrophils 0, Blood Morphology Comment NORMAL, Erythrocyte Sedimentation Rate 81, Sodium Level 138, Potassium Level 4.4, Chloride Level 98, Carbon Dioxide Level 27, Anion Gap 13, Blood Urea Nitrogen 16, Creatinine 1.26, Estimat Glomerular Filtration Rate 47, BUN/Creatinine Ratio 13, Glucose Level 178, Calcium Level 9.6, Corrected Calcium 10.2, Total Bilirubin 0.5, Aspartate Amino Transf (AST/SGOT) 10, Alanine Aminotransferase (ALT/SGPT) 12, Alkaline P hosphatase 157, C-Reactive Protein High Sensitivity 6.42, Total Protein 7.0, Albumin 3.3, Procalcitonin 0.09 12/04/21 11:01: Glucometer 257 12/04/21 11:05: Urine Color ORANGE, Urine Clarity CLEAR, Urine pH 5.0, Urine Specific [place] 1.025, Urine Protein 2+, Urine Glucose (UA) 1+, Urine Ketones TRACE, Urine Nitrite POSITIVE, Urine Bilirubin NEGATIVE, Urine Urobilinogen >=8.0, Urine Leukocyte Esterase TRACE, Urine RBC (Auto) NEGATIVE, Urine RBC RARE, Urine WBC RARE, Urine Squamous Epithelial Cells NONE, Urine Crystals NONE, Urine Bacteria NEGATIVE, Urine Casts PRESENT, Urine Hyaline Casts RARE, Urine Mucus NEGATIVE, Urine Culture Indicated YES 12/04/21 15:32: Glucometer 256 12/04/21 20:19: Glucometer 199 12/05/21 05:37: Glucometer 142 12/05/21 09:15: White Blood Count 19.2, Red Blood Count 3.99, Hemoglobin 11.1, Hematocrit 36, Mean Corpuscular Volume 90, Mean Corpuscular Hemoglobin 28, Mean Corpuscular Hemoglobin Concent 31, Red Cell Distribution Width 14.1, Platelet Count 340, Mean Platelet Volume 10.5, Immature Granulocyte % (Auto) 1, Neutrophils (%) (Auto) 80, Lymphocytes (%) (Auto) 9, Monocytes (%) (Auto) 8, Eosinophils (%) (Auto) 2, Basophils (%) (Auto) 1, Neutrophils # (Auto) 15.3, Lymphocytes # (Auto) 1.8, Monocytes # (Auto) 1.5, Eosinophils # (Auto) 0.3, Basophils # (Auto) 0.1, Immature Granulocyte # (Auto) 0.2, Sodium Level 139, Potassium Level 4.5, Chloride Level 99, Carbon Dioxide Level 27, Anion Gap 13, Blood Urea Nitrogen 18, Creatinine 1.55, Estimat Glomerular Filtration Rate 37, BUN/Creatinine Ratio 12, Glucose Level 280, Calcium Level 9.2, Corrected Calcium 9.9, Total Bilirubin 0.7, Aspartate Amino Transf (AST/SGOT) 8, Alanine Aminotransferase (ALT/SGPT) 8, Alkaline Phosphatase 137, Total Protein 6.6, Albumin 3.1 12/05/21 10:49: Glucometer 260 12/05/21 15:22: Glucometer 185 12/05/21 20:17: Glucometer 206 12/06/21 05:33: Glucometer 116 12/06/21 06:40: White Blood Count 17.0, Red Blood Count 3.90, Hemoglobin 10.8, Hematocrit 35, Mean Corpuscular Volume 91, Mean Corpuscular Hemoglobin 28, Mean Corpuscular Hemoglobin Concent 31, Red Cell Distribution Width 14.3, Platelet Count 353, Mean Platelet Volume 10.4, Immature Granulocyte % (Auto) 1, Neutrophils (%) (Au to) 77, Lymphocytes (%) (Auto) 11, Monocytes (%) (Auto) 7, Eosinophils (%) (Auto) 3, Basophils (%) (Auto) 1, Neutrophils # (Auto) 13.1, Lymphocytes # (Auto) 1.8, Monocytes # (Auto) 1.2, Eosinophils # (Auto) 0.5, Basophils # (Auto) 0.1, Immature Granulocyte # (Auto) 0.2, Sodium Level 142, Potassium Level 3.9, Chloride Level 102, Carbon Dioxide Level 26, Anion Gap 14, Blood Urea Nitrogen 13, Creatinine 1.15, Estimat Glomerular Filtration Rate 53, BUN/Creatinine Ratio 11, Glucose Level 124, Calcium Level 9.1, Corrected Calcium 9.9, Total Bilirubin 0.4, Aspartate Amino Transf (AST/SGOT) 10, Alanine Aminotransferase (ALT/SGPT) 9, Alkaline Phosphatase 151, Total Protein 6.5, Albumin 3.0 Discharge Home Medications: Active Scripts Active Advocate Pen Freedom (Freedom, Insulin Disposable) 29 Gauge X 1/2" Dis.needle Each AC Novolog Flexpen (Insulin Aspart) 100 Unit/Ml (3 Ml) Solution 3 Units SQ AC Acetaminophen-Cod #3 Tablet (Acetaminophen with Codeine) 300 Mg-30 Mg Tablet 1 Tab PO Q6H PRN Enoxaparin Sodium 40 Mg/0.4 Ml Syringe 40 Mg SC Q24H Baclofen 10 Mg Tablet 10 Mg PO Q8HR PRN Dicyclomine HCl 10 Mg Capsule 10 Mg PO TID PRN Bethanechol Chloride 25 Mg Tablet 25 Mg PO AC Vancomycin 1,500 mg/15Ml-Water (Vancomycin HCl in Water) 1.5 Gram/15 Ml (100 Mg/Ml) Vial 1.5 Gm IV DAILY Ondansetron Odt (Ondansetron) 4 Mg Tab.rapdis 4 Mg PO Q6 -8H PRN Levothyroxine Sodium 100 Mcg Tablet 100 Mcg PO DAILY Neurontin (Gabapentin) 300 Mg Capsule 600 Mg PO DAILY TAKES 2 (300MG) CAPS Fluoxetine HCl 40 Mg Capsule 40 Mg PO DAILY TAKES 20MG+40MG TOGETHER TO EQUAL 60MG DAILY Fluoxetine HCl 20 Mg Capsule 20 Mg PO DAILY TAKES 20MG+40MG TOGETHER TO EQUAL 60MG DAILY Carvedilol 12.5 Mg Tablet 12.5 Mg PO BID WITH MEALS Wellbutrin Sr (Bupropion HCl) 150 Mg Tablet.er 150 Mg PO BID Reported Neurontin (Gabapentin) 300 Mg Capsule 900 Mg PO 1800 TAKES 3 (300MG) CAPS Novolin N (Insulin NPH Human Isophane) 100 Unit/Ml Vial 11 Unit SQ HS Glimepiride 2 Mg Tablet 2 Mg PO DAILY W/BREAKFAST Instructions to patient/family Please see electronic discharge instructions given to patient. Diagnosis/Problems Diagnosis/Problems (1) S/P spinal fusion Clinical Quality Measures DVT/VTE Risk/Contraindication: Contraindications-Pharm: Other *list below* Other: spinal surgery ANA AGRCIA DO Dec 06, 2021 06:15
[2021-12-06] MEDS: inSUlin ASPART (NovoLOG) 1 UNIT/0.01 ML (CHARGE PER UNIT) SC SCH ×2 (06:28→14:25)
[2021-12-06] MEDS: BETHANECHOL 25 MG (URECHOLINE) TAB PO SCH ×2 (06:31→14:25)
[2021-12-06] MEDS: LEVOTHYROXINE 100 MCG (LEVOTHROID) TAB PO SCH (06:32)
[2021-12-06] MEDS: CATHETER FLUSH 10 ML SYR IVP SCH ×2 (06:32→14:25)
[2021-12-06] MEDS: PIPERACILLIN SODIUM/TAZOBACTAM 4.5 GM in NS (IVPB) 100 ML IV SCH (06:32)
[2021-12-06 06:50] LABS: BASOPHILS # (AUTO) 0.1 10^3/uL (0.0-0.1); BASOPHILS % (AUTO) 1 % (0-10); EOSINOPHILS # (AUTO) 0.5 10^3/uL (0.0-0.3); EOSINOPHILS % (AUTO) 3 % (0-10); HEMATOCRIT 35 % (35-52); HEMOGLOBIN 10.8 g/dL (11.5-16.0); LYMPHOCYTES # (AUTO) 1.8 10^3/uL (1.0-4.0); LYMPHOCYTES % (AUTO) 11 % (12-44); MEAN CORPUSCULAR HEMOGLOBIN 28 pg (25-34); MEAN CORPUSCULAR HGB CONC 31 g/dL (32-36); MEAN CORPUSCULAR VOLUME 91 fL (80-99); MEAN PLATELET VOLUME 10.4 fL (9.0-12.2); MONOCYTES # (AUTO) 1.2 10^3/uL (0.0-1.0); MONOCYTES % (AUTO) 7 % (0-12); NEUTROPHILS # (AUTO) 13.1 10^3/uL (1.8-7.8); NEUTROPHILS % (AUTO) 77 % (42-75); PLATELET COUNT 353 10^3/uL (130-400)
[2021-12-06 07:11] LABS: BILIRUBIN,TOTAL 0.4 MG/DL (0.1-1.0); CALCIUM 9.1 MG/DL (8.5-10.1); CREATININE SERUM 1.15 MG/DL (0.60-1.30); POTASSIUM 3.9 MMOL/L (3.6-5.0); TOTAL PROTEIN 6.5 GM/DL (6.4-8.2)
[2021-12-06 07:21] VITALS: BP 148/65
[2021-12-06] MEDS: PHENAZOPYRIDINE 100 MG (PYRIDIUM) TABLET PO SCH ×2 (08:13→14:26)
[2021-12-06] MEDS: buPROPion SR 150 MG (WELLBUTRIN SR) TAB PO SCH (08:13)
[2021-12-06] MEDS: GABAPENTIN 300 MG (NEURONTIN) CAP PO SCH ×2 (08:14→14:25)
[2021-12-06] MEDS: DOCUSATE SODIUM 100 MG (COLACE) CAP PO SCH (08:14)
[2021-12-06] MEDS: APAP 300 MG/CODEINE 30 MG (TYLENOL #3) TAB PO PRN (08:15)
[2021-12-06] MEDS: FLUoxetine HCL 20 MG (PROzac) CAP PO SCH (08:16)
--- NOTE | 2021-12-06 09:01 | Occupational Ther Daily Note ---
OT Current Status-Daily Note Subjective Pt laying in bed prior to OT tx. Pt apprehensive about moving and reports being sore after assisted fall yesterday. Pt agreeable to tx. Pt states "I feel like I learned a lot" when talking about her rehab stay Mental Status/Objective Patient Orientation: Person, Place, Situation Attachments: IV ADL-Treatment Therapy Code Descriptions/Definitions Functional [place] Measure: 0=Not Assessed/NA 4=Minimal Assistance 1=Total Assistance 5=Supervision or Setup 2=Maximal Assistance 6=Modified [place] 3=Moderate Assistance 7=Complete IndependenceSCALE: Activities may be completed with or without assistive devices. 6-Wrevdslrvl-ykusfui completes the activity by him/herself with no assistance from a helper. 5-Set-up or Clean-up Assistance-helper sets up or cleans up; patient completes activity. [place] assists only prior to or following the activity. 4-Supervision or Touching Assistance-helper provides verbal cues and/or touching/steadying and/or contact guard assistance as patient completes activity. Assistance may be provided throughout the activity or intermittently. 3-Partial/Moderate Assistance-helper does LESS THAN HALF the effort. [place] lifts, holds or supports trunk or limbs, but provides less than half the effort. 2-Substantial/Maximal Assistance-helper does MORE THAN HALF the effort. [place] lifts or holds trunk or limbs and provides more than half the effort. 4-Xuaxtmbrk-kibvuo does ALL the effort. Patient does none of the effort to complete the activity. Or, the assistance of 2 or more helpers is required for the patient to complete the activity. If activity was not attempted, code reason: 7-Patient Refused. 9-Not Applicable-not attempted and the patient did not perform the activity before the current illness, exacerbation or injury. 10-Not Attempted due to Environmental Limitations-(lack of equipment, weather restraints, etc.). 88-Not Attempted due to Medical Conditions or Safety Concerns. Eating (QC): 6 Oral Hygiene (QC): 6 (seated at sink) Shower/Bathe Self (QC): 4 (SBA, min v/c to maintain back precautions) Upper Body Dressing (QC): 3 (Min A. Pt needed help pulling shirt down in the back and min A with TLSO.) Lower Body Dressing (QC): 1 (Assist x2 for standing balance and hiking briefs and pants. Pt needed mod A to thread legs through brief, but was able to thread pants with almond sorter.) On/Off Footwear: 3 (Min A overall. Pt needed v/c's to thread foot through sock aid, but she was able to thread sock on AE and hike socks up. ) Toileting Hygiene (QC): 1 (Assist x2 for standing balance and to don/doff clothing. Pt able to clean periarea. ) Other Treatment OT/PT cotreat due to skill of 2 clinicians required which a occupational therapist rehab manager could not perform in order to coordinate UE/LEs, decrease fall risk, and due to pt's limitations in activity tolerance, strength, transfers/mobility, and standing balance. OT focused on UE placement, gross overall movement and ADLS, PT focused on LE placement, gross overall movements, transfers/mobility, and standing balance. Pt in bed, transferred supine to sit EOB, min A, then min A transfer to w/c using FWW. Pt taken into bathroom, SPT to SC using GBs, min A. Pt doffed clothes, completed shower, then donned clothes. Pt transferred back to w/c, mod A. Nurse present to change dressings, pt able to maintain upright sitting position during dressing change without assistance. Pt taken to therapy gym. Pt participated in standing functional activities that focused on increasing BUE strength and activity tolerance. Pt stood at parallel bars, taking R and L hands off bars to touch clinician's hand, all planes, ~10-15x with each hand. Pt required 1 RB during activity. End of cotreat, pt left with PT. Education OT Patient Education: Correct positioning, Energy conservation, Exercise program, Modified ADL techniques, Progress toward Goal/Update tx plan, Purpose of tx/functional activities, Rehab process Teaching Recipient: Patient Teaching Methods: Discussion Response to Teaching: Verbalize Understanding OT Short Term Goals Short Term Goals Time Frame: Dec 08, 2021 Toileting hygiene: 3 Shower/bathe self: 3 Upper body dressin Lower body dressin Putting on/taking off footwear: 3 OT Stitch Bonding Machine Operator Goals Stitch Bonding Machine Operator Goals Time Frame: Dec 22, 2021 Eating (QC): 6 (met) Oral Hygiene (QC): 6 (met) Toileting Hygiene (QC): 4 (not met) Shower/Bathe Self (QC): 5 (bed level sponge bath. Not met) Upper Body Dressing (QC): 5 (bed level, not met) Lower Body Dressing (QC): 4 (not met) On/Off Footwear (QC): 4 (not met) Additional Goals: 1-Demonstrate ADL Tasks, 2-Verbalize Understanding, 3-ImproveStrength/Yennifer 1=Demonstrate adherence to instructed precautions during ADL tasks. 2=Patient will verbalize/demonstrate understanding of assistive devices/modifications for ADL. 3=Patient will improve strength/tolerance for activity to enable patient to perform ADL's. OT Education/Plan Problem List/Assessment Assessment: Decreased Activ Tolerance, Decreased UE Strength, Impaired Bed Mobility, Impaired Funct Balance, Impaired I ADL's, Impaired Self-Care Skills, Restricted Funct UE ROM Discharge Recommendations Plan/Recommendations: Continue POC Treatment Plan/Plan of Care Patient would benefit from OT for education, treatment and training to promote independence in ADL's, mobility, safety and/or upper extremity function for ADL's. Plan of Care: ADL Retraining, Cognitive Retraining, Concurrent Therapy, Functional Mobility, Group Exercise/Act as Ind Treatment Duration: Nov 24, 2021 Frequency: 5 times per week Estimated Hrs Per Day: 1 hour per day Rehab Potential: Fair Time/GCodes Start Time: 07:30 Stop Time: 09:00 Total Time Billed (hr/min): 90 Billed Treatment Time Cotreat x60', OT tx x30' 1, ADL 5 (75'), FA (15') RHYS MENEZES OT Dec 06, 2021 09:01
--- NOTE | 2021-12-06 09:23 | Physical Therapy Daily Note ---
PT Daily Note-Current Subjective Upon arrival, pt was in shower with OT. PT cotreats ith OT. Pt agrees to PT. Pain Comment: Pt reports pain, but not rated. Mental Status Patient Orientation: Person, Place, Situation Attachments: Other-See Comments (TLSO brace), IV Transfers SCALE: Activities may be completed with or without assistive devices. 7-Yuuxfysubq-bbykdet completes the activity by him/herself with no assistance from a helper. 5-Set-up or Clean-up Assistance-helper sets up or cleans up; patient completes activity. [place] assists only prior to or following the activity. 4-Supervision or Touching Assistance-helper provides verbal cues and/or touching/steadying and/or contact guard assistance as patient completes activity. Assistance may be provided throughout the activity or intermittently. 3-Partial/Moderate Assistance-helper does LESS THAN HALF the effort. [place] lifts, holds or supports trunk or limbs, but provides less than half the effort. 2-Substantial/Maximal Assistance-helper does MORE THAN HALF the effort. [place] lifts or holds trunk or limbs and provides more than half the effort. 5-Fgrnkpxfw-vmzmch does ALL the effort. Patient does none of the effort to complete the activity. Or, the assistance of 2 or more helpers is required for the patient to complete the activity. If activity was not attempted, code reason: 7-Patient Refused. 9-Not Applicable-not attempted and the patient did not perform the activity before the current illness, exacerbation or injury. 10-Not Attempted due to Environmental Limitations-(lack of equipment, weather restraints, etc.). 88-Not Attempted due to Medical Conditions or Safety Concerns. Sit to Lying (QC): 4 Sit to Stand (QC): 4 Pt was Mod A with transfer from shower<->WC. Pt was Mod A with WC<->bed. Weight Bearing Full Weight Bearing Full Weight Bearing Gait Training Does the Patient Walk?: No and Walking Goal IS indicated Exercises Supine Ex: Heel Slides, Straight leg raise, Hip abd/add Supine Reps: 10 Seated Therapy Exercises: Ankle pumps (6), Sit to stand (2), Long arc quads (15), Hip flexion (15) Standing: Sit to Stand (3) Neuromuscular Pt balances at // bars. Pt is Min A with sit to stands at // bars. Pt demonstrates Min to no LOB. Treatments Pt performed and completed all Exs listed above. Pt stated that she was having a sharp pain in her R ankle with ankle pumps and requests to skip exs. During tx session pts RN arrives to change pts dressing. PT co treats with OT, PT works on transfers and balance at // bars with OT. Pt states that she is getting tired and does not know how much more she can do. PT takes pt back to room, pt requests to go to bed. Pt has call light and tray in reach and all needs met. Assessment Current Status: Fair Progress Pt states that she may be DC today. Pt would benefit from continued PT to improve on strength, activity tolerance and balance. PT Short Term Goals Short Term Goals Time Frame: Dec 01, 2021 Roll Left & Right: 4 Sit to lyin (Nell) Lying to sitting on side of be: 3 (Nell) Sit to stand: 3 (modA) Chair/fca-wi-hrxca transfer: 4 (CGA) Walk 10 feet: 4 (CGA) PT Group Home Goals Group Home Goals PT Account Development Associate Goals Time Frame: Dec 15, 2021 Roll Left & Right (QC): 6 Sit to Lying (QC): 4 (SBA) Lying-Sitting on Side/Bed(QC): 4 (SBA) Sit to Stand (QC): 3 (Nell) Chair/Uul-nn-Mrhvq Xfer(QC): 4 (SBA) Toilet Transfer (QC): 4 (SBA) Car Transfer (QC): 3 (Nell) Does the Patient Walk: Yes Walk 10 feet (QC): 4 (SBA) Walk 50ft with 2 Turns (QC): 4 (SBA) Walk 150 ft (QC): 88 Walking 10ft on Uneven Surface: 4 (CGA) 1 Step (curb) (QC): 88 4 Steps (QC): 88 12 Steps (QC): 88 Picking up an Object (QC): 4 Wheel 50 feet with 2 turns (QC: 6 Wheel 150 feet: 6 PT Plan Problem List Problem List: Activity Tolerance, Functional Strength, Balance Treatment/Plan Treatment Plan: Continue Plan of Care Treatment Plan: Bed Mobility, Education, Functional Activity Yennifer, Functional Strength, Group Therapy, Gait, Safety, Therapeutic Exercise, Transfers Treatment Duration: Dec 15, 2021 Frequency: At least 5 of 7 days/Wk (IRF) Estimated Hrs Per Day: 1.5 hours per day Patient and/or Family Agrees t: Yes Safety Risks/Education Patient Education: Transfer Techniques, Correct Positioning Teaching Recipient: Patient Teaching Methods: Discussion Response to Teaching: Verbalize Understanding Time/GCodes Time In: 800 Time Out: 930 Total Billed Treatment Time: 90 Total Billed Treatment 1, 4 (60) FA, 2 (30) CHARANJIT Garner PTA Dec 06, 2021 09:23
[2021-12-06] MEDS: SENNA W/DOCUSATE (SENOKOT S) TABLET PO SCH (09:37)
[2021-12-06] MEDS: polyethylene glycoL POWDER 17 GM (MIRALAX) PACK PO SCH (09:37)
--- NOTE | 2021-12-06 14:13 | Therapy Team Discharge Summary ---
Therapy Discharge Summary Discharge Recommendations Date of Discharge Physical Therapy Roll Left to Right (QC): 4 Sit to Lying (QC): 4 Lying to Sitting/Side of Bed(Q: 4 Sit to Stand (QC): 4 Chair/Bsq-cp-Wlohy Xfer(QC): 3 Toilet Transfer (QC): 1 Car Transfer (QC): 3 Does the Patient Walk: No and Walking Goal IS indicated Mode of Locomotion: Walk Anticipated Mode of Locomotion: Walk Walk 10 feet (QC): 3 Walk 50 ft with 2 Turns(QC): 88 Walk 150 ft (QC): 88 Walking 10ft on uneven surface: 88 Distance: 5' Gait Assistive Device: FWW Does the Pt Use a Wheelchair: Yes Wheelchair Distance: 100'x2 Wheel 50 ft with 2 turns (QC): 3 Wheel 150 ft (QC): 5 Type of Wheelchair: Manual 1 Step (curb) (QC): 88 4 Steps (QC): 88 12 Steps (QC): 88 Balance Sitting Static: Normal Balance Sitting Dynamic: Normal Balance-Standing Static: Poor Picking up an Object (QC): 88 Occupational Therapy Pt presented to ARU s/p T12-L4 fusion. Pt was IND with all ADLs and IADLs at [facility]. At [facility], pt scored IND with eating, bedside setup with oral hygiene, Max A with bed bath and dressing, and total A with footwear and toileting. OT tx focused on BUE strength and endurance and increased IND in ADLs, functional mobility, and activity tolerance. Pt made some functional progress but did not meet all her goals d/t complex medical condition (met eating and oral hygiene). OT recommends pt get an extended bath bench and hip kit upon d/c. Pt discharged to [facility] due to increased medical complexity, recommend further OT at acute care or SNF. DC from OT skilled services at this time. Decreased Activ Tolerance, Decreased UE Strength, Impaired Bed Mobility, Impaired Funct Balance, Impaired I ADL's, Impaired Self-Care Skills, Restricted Funct UE ROM Eating (QC): 6 Oral Hygiene (QC): 6 (seated at sink) Shower/Bathe Self (QC): 4 (SBA, min v/c to maintain back precautions) Upper Body Dressing (QC): 3 (Min A. Pt needed help pulling shirt down in the back and min A with TLSO.) Lower Body Dressing (QC): 1 (Assist x2 for standing balance and hiking briefs and pants. Pt needed mod A to thread legs through brief, but was able to thread pants with maintenance services dispatcher.) On/Off Footwear (QC): 3 (Min A overall. Pt needed v/c's to thread foot through sock aid, but she was able to thread sock on AE and hike socks up. ) Toileting Hygiene (QC): 1 (Assist x2 for standing balance and to don/doff clothing. Pt able to clean periarea. ) PT Senior Living Goals Business Systems Advisor Goals PT Business Systems Advisor Goals Time Frame: Dec 15, 2021 Roll Left to Right (QC): 6 Sit to Lying (QC): 4 (SBA) Lying-Sitting on Side/Bed(QC): 4 (SBA) Sit to Stand (QC): 3 (Nell) Chair/Ckv-rb-Nzobj Xfer(QC): 4 (SBA) Car Transfer (QC): 3 (Nell) Does the Patient Walk: Yes Walk 10 feet (QC): 4 (SBA) Walk 10ft-Uneven Surface(QC): 4 (CGA) Walk 50ft with 2 Turns (QC): 4 (SBA) Walk 150 ft (QC): 88 Wheel 50 feet with 2 turns (QC: 6 1 Step (curb) (QC): 88 4 Steps (QC): 88 12 Steps (QC): 88 Picking up an Object (QC): 4 OT Business Systems Advisor Goals Business Systems Advisor Goals Time Frame: Dec 22, 2021 Eating (QC): 6 (met) Oral Hygiene (QC): 6 (met) Shower/Bathe Self (QC): 5 (bed level sponge bath. Not met) Upper Body Dressing (QC): 5 (bed level, not met) Lower Body Dressing (QC): 4 (not met) On/Off Footwear (QC): 4 (not met) Toileting Hygiene (QC): 4 (not met) Toilet/Commode Transfer (QC): 4 (SBA) Additional Goals: 1-Demonstrate ADL Tasks, 2-Verbalize Understanding, 3- ImproveStrength/Yennifer 1=Demonstrate adherence to instructed precautions during ADL tasks. 2=Patient will verbalize/demonstrate understanding of assistive devices/modifications for ADL. 3=Patient will improve strength/tolerance for activity to enable patient to perform ADL's. RHYS MENEZES OT Dec 06, 2021 14:13
[2021-12-06] MEDS: ENOXAPARIN 40 MG/0.4 ML (LOVENOX) SYR SC SCH (14:25)
--- NOTE | 2021-12-07 11:17 | Therapy Team Discharge Summary ---
Therapy Discharge Summary Discharge Recommendations Date of Discharge Dec 06, 2021 at 12:55 Physical Therapy Patient came to rehab with T12 compression fracture and T12-L4 lumbar spine surgery. Upon evaluation patient performs rolling with min assist, supine <-> sit mod assist, sit <-> stand max assist, transfers min assist, car transfer max assist, ambulate 5' with a rolling walker with min assist, and propelled a manual WC 100' with min/mod assist. Patient has been performing bed mobility and transfer training, balance and endurance training, functional strengthening, stair training, gait training, and education. Patient has made some progress but has only met her [facility] goals for supine to sit, sit to stand, and car transfer. Now, patient performs rolling with SBA, supine to sit SBA, sit to supine mod assist, sit <-> stand min assist, transfers min assist, car transfer mod assist, ambulate 15' with a rolling walker with min assist, and propels a manual WC 100' with min assist. Patient has been discharged from this facility and will be discharged from PT at this time. Roll Left to Right (QC): 4 Sit to Lying (QC): 4 Lying to Sitting/Side of Bed(Q: 4 Sit to Stand (QC): 4 Chair/Dxh-nd-Ccjup Xfer(QC): 3 Toilet Transfer (QC): 1 Car Transfer (QC): 3 Does the Patient Walk: No and Walking Goal IS indicated Mode of Locomotion: Walk Anticipated Mode of Locomotion: Walk Walk 10 feet (QC): 3 Walk 50 ft with 2 Turns(QC): 88 Walk 150 ft (QC): 88 Walking 10ft on uneven surface: 88 Distance: 5' Gait Assistive Device: FWW Does the Pt Use a Wheelchair: Yes Wheelchair Distance: 100'x2 Wheel 50 ft with 2 turns (QC): 3 Wheel 150 ft (QC): 5 Type of Wheelchair: Manual 1 Step (curb) (QC): 88 4 Steps (QC): 88 12 Steps (QC): 88 Balance Sitting Static: Normal Balance Sitting Dynamic: Normal Balance-Standing Static: Poor Picking up an Object (QC): 88 Occupational Therapy Decreased Activ Tolerance, Decreased UE Strength, Impaired Bed Mobility, Impaired Funct Balance, Impaired I ADL's, Impaired Self-Care Skills, Restricted Funct UE ROM Eating (QC): 6 Oral Hygiene (QC): 6 (seated at sink) Shower/Bathe Self (QC): 4 (SBA, min v/c to maintain back precautions) Upper Body Dressing (QC): 3 (Min A. Pt needed help pulling shirt down in the back and min A with TLSO.) Lower Body Dressing (QC): 1 (Assist x2 for standing balance and hiking briefs and pants. Pt needed mod A to thread legs through brief, but was able to thread pants with carding utility tender.) On/Off Footwear (QC): 3 (Min A overall. Pt needed v/c's to thread foot through sock aid, but she was able to thread sock on AE and hike socks up. ) Toileting Hygiene (QC): 1 (Assist x2 for standing balance and to don/doff clothing. Pt able to clean periarea. ) PT Custodial Goals Custodial Goals PT Wire Coiler Goals Time Frame: Dec 15, 2021 Roll Left to Right (QC): 6 Sit to Lying (QC): 4 (SBA) Lying-Sitting on Side/Bed(QC): 4 (SBA) Sit to Stand (QC): 3 (Nell) Chair/Zad-jg-Oozsc Xfer(QC): 4 (SBA) Car Transfer (QC): 3 (Nell) Does the Patient Walk: Yes Walk 10 feet (QC): 4 (SBA) Walk 10ft-Uneven Surface(QC): 4 (CGA) Walk 50ft with 2 Turns (QC): 4 (SBA) Walk 150 ft (QC): 88 Wheel 50 feet with 2 turns (QC: 6 1 Step (curb) (QC): 88 4 Steps (QC): 88 12 Steps (QC): 88 Picking up an Object (QC): 4 OT Custodial Goals Custodial Goals Time Frame: Dec 22, 2021 Eating (QC): 6 (met) Oral Hygiene (QC): 6 (met) Shower/Bathe Self (QC): 5 (bed level sponge bath. Not met) Upper Body Dressing (QC): 5 (bed level, not met) Lower Body Dressing (QC): 4 (not met) On/Off Footwear (QC): 4 (not met) Toileting Hygiene (QC): 4 (not met) Toilet/Commode Transfer (QC): 4 (SBA) Additional Goals: 1-Demonstrate ADL Tasks, 2-Verbalize Understanding, 3- ImproveStrength/Yennifer 1=Demonstrate adherence to instructed precautions during ADL tasks. 2=Patient will verbalize/demonstrate understanding of assistive devices/modifications for ADL. 3=Patient will improve strength/tolerance for activity to enable patient to perform ADL's. NERISSA BENITEZ PT Dec 07, 2021 11:17
[2021-12-07] MEDS ORDERED: TROUGH ORDER-PHARMACY XX ONE (16:00)
== END 2021-12-06 12:55 | disposition short-term general hospital (02) | DRG 560 ==
PROVIDERS: ADMIT Internal Medicine; ATTEND Internal Medicine
DX: Z47.89 Encounter for other orthopedic aftercare (principal); T81.31XA Disruption of external operation (surgical) wound, not elsewhere classified, initial encounter; T81.41XA Infection following a procedure, superficial incisional surgical site, initial encounter; E11.649 Type 2 diabetes mellitus with hypoglycemia without coma; R33.9 Retention of urine, unspecified; Z98.1 Arthrodesis status; Z91.81 History of falling; F32.A Depression, unspecified; E78.00 Pure hypercholesterolemia, unspecified; I10 Essential (primary) hypertension; M81.0 Age-related osteoporosis without current pathological fracture; F41.9 Anxiety disorder, unspecified; E03.9 Hypothyroidism, unspecified; B95.62 Methicillin resistant Staphylococcus aureus infection as the cause of diseases classified elsewhere; Z79.4 Long term (current) use of insulin; Z79.84 Long term (current) use of oral hypoglycemic drugs; W19.XXXD Unspecified fall, subsequent encounter
CPT/HCPCS: 36415; 36569; 76937; 80053; 81000; 82947; 84145; 85007; 85025; 85027; 85652; 86141; 87040; 87070; 87077; 87088; 87186; 87205